=== PATIENT | female | born 1930 | race Caucasian/White ===

== ENCOUNTER 2016-06-30 12:04 | Emergency (ER) | payer MEDICARE, OTHER ==
[~2016-06-30] VITALS: Ht 167.6 cm; Wt 68.0 kg
[~2016-06-30 12:04] MED LIST: CALCIUM PO; CARV6.25 PO; FISH500C PO; FURO1TAB60 PO; HYDR12.57 PO; LOSA25TA PO; MAGN400T2 PO; METF1000 PO; MULT1TAB46 PO; PLAV75TA29 PO; WALKER WHEELS/F1 MIS; [UNRECOGNIZED DRUG - OTHER] PO
[2016-06-30 12:10] VITALS: BP 141/68; PULSE 94; RESP 15; TEMP 98.1; O2SAT 99
[2016-06-30] MEDS ORDERED: LIDOCAINE 1%/EPINEPHrine 1:100,000 SOLN 20 ML VIAL INFIL ONE (12:45)
[2016-06-30 12:48] VITALS: BP 147/76; PULSE 86; RESP 18; O2SAT 97
[2016-06-30] MEDS ORDERED: VITACAP9 PO (12:53)
[2016-06-30 13:08] LABS: AUTOMATED NEUTROPHIL # 5.3 TH/MM3 (1.8-7.7); BASOPHIL % 0.6 % (0.0-2.0); EOSINOPHIL # 0.1 TH/MM3 (0-0.4); EOSINOPHIL % 0.7 % (0.0-4.0); HEMATOCRIT 34.4 % (35.0-46.0); HEMO FLAGS DIFF FINAL; LYMPH % 18.7 % (9.0-44.0); LYMPHOCYTE # 1.4 TH/MM3 (1.0-4.8); MEAN CELL VOLUME 92.1 FL (80.0-100.0); MEAN CORPUSCULAR HEMOGLOBIN 30.1 PG (27.0-34.0); MEAN CORPUSCULAR HGB CONC 32.7 % (32.0-36.0); MONO % 8.5 % (0.0-8.0); NEUT % 71.5 % (16.0-70.0); PLATELET COUNT 187 TH/MM3 (150-450); RED BLOOD COUNT 3.74 MIL/MM3 (4.00-5.30); RED CELL DISTRIBUTION WIDTH 13.6 % (11.6-17.2); WHITE BLOOD COUNT 7.4 TH/MM3 (4.0-11.0)
[2016-06-30 13:15] LABS: APTT (PATIENT) 25.8 SEC (24.3-30.1); PROTHROMBIN TIME - PATIENT 10.6 SEC (9.8-11.6)
[2016-06-30 13:29] LABS: BICARBONATE 31.3 MEQ/L (21.0-32.0); POTASSIUM 3.5 MEQ/L (3.5-5.1)
--- NOTE | 2016-06-30 14:15 | PD ---
HPI Chief Complaint: Skin Problem Time Seen by Provider: 12:39 Travel History International Travel<30 days: No Contact w/Intl Traveler<30days: No Traveled to known affect area: No History of Present Illness HPI 85 years old female complains of bleeding from the right lower leg. Patient struck her right leg against a chair about 1 hour prior to arrival. Patient started having bleeding on the right leg since then. Patient has history of PAD , CHF, atrial fibrillation, on Plavix. Patient also has history of hypertension and diabetes. Patient denies any headache. Patient denies any chest pain or shortness of breath. Patient denies abdominal pain. Patient denies any other problem. PFSH Past Medical History Hx Anticoagulant Therapy: Yes (PLAVIX) Arthritis: Yes Asthma: No Heart Rhythm Problems: No Cancer: No Cardiovascular Problems: Yes High Cholesterol: Yes Chemotherapy: No Chest Pain: No Congestive Heart Failure: Yes COPD: Yes Cerebrovascular Accident: No Diabetes: Yes Patient Takes Glucophage: Yes Endocrine: Yes Genitourinary: No Hepatitis: No Hiatal Hernia: No Hypertension: Yes Immune Disorder: No Musculoskeletal: Yes Neurologic: No Psychiatric: No Reproductive: No Respiratory: Yes Migraines: Yes Radiation Therapy: No Seizures: No Sickle Cell Disease: No Sleep Apnea: No Thyroid Disease: Yes Tetanus Vaccination: > 5 Years Influenza Vaccination: No Past Surgical History Abdominal Surgery: No AICD: No Arteriovenous Shunt: No Cardiac Surgery: No Ear Surgery: No Endocrine Surgery: Yes Eye Surgery: No Genitourinary Surgery: No Gynecologic Surgery: Yes Hysterectomy: Yes Insulin Pump: No Joint Replacement: No Oral Surgery: No Pacemaker: No Thoracic Surgery: No Other Surgery: Yes Social History Alcohol Use: Yes (OCCASIONALLY ) Tobacco Use: No Substance Use: No Allergies-Medications (Allergen,Severity, Reaction): Coded Allergies: Contrast Media (Verified Allergy, Severe, ITCHING,REDNESS,SOB, 06/30/16) Iodinated Contrast Media (Verified Allergy, Severe, HIVES, 06/30/16) itching, sneezing Penicillin (Verified Allergy, Severe, SOB, RASH, 06/30/16) Sulfa (Verified Allergy, Severe, RASH, 06/30/16) Reported Meds & Prescriptions Reported Meds & Active Scripts Active Coreg (Carvedilol) 6.25 Mg Tab 6.25 Mg PO Q12HR Lasix (Furosemide) 40 Mg Tab 40 Mg PO BID@ Reported Vitamin B Complex-C (B Complex W/ C) 1 Cap Cap 1 Cap PO DAILY Magnesium Oxide 400 Mg Tab 400 Mg PO NOON TIME Multi Vitamin Daily (Multiple Vitamin) 1 Tab Tab 1 Tab PO DAILY Losartan (Losartan Potassium) 25 Mg Tab 25 Mg PO HS Fish Oil ([place]-3 Fatty Acids) 500 Mg Cap 500 Mg PO NOON TIME Metformin (Metformin HCl) 1,000 Mg Tab 1,000 Mg PO BIDPC With meals Plavix (Clopidogrel Bisulfate) 75 Mg Tab 75 Mg PO DAILY Review of Systems General / Constitutional: No: Fever Eyes: No: Visual changes HENT: No: Headaches Cardiovascular: No: Chest Pain or Discomfort Respiratory: No: Shortness of Breath Gastrointestinal: No: Abdominal Pain Genitourinary: No: Dysuria Musculoskeletal: No: Pain Skin: No Rash Neurologic: No: Weakness Psychiatric: No: Depression Endocrine: No: Polydipsia Hematologic/Lymphatic: No: Easy Bruising Physical Exam Narrative GENERAL: Well-nourished, well-developed patient. SKIN: Warm and dry. HEAD: Normocephalic. EYES: No scleral icterus. No injection or drainage. NECK: Supple, trachea midline. No JVD or lymphadenopathy. CARDIOVASCULAR: Regular rate and rhythm without murmurs, gallops, or rubs. RESPIRATORY: Breath sounds equal bilaterally. No accessory muscle use. GASTROINTESTINAL: Abdomen soft, non-tender, nondistended. MUSCULOSKELETAL: No cyanosis, or edema. BACK: Nontender without obvious deformity. No CVA tenderness. Patient has a large hematoma on the anterior lateral aspect of the right lower leg. Patient had active bleeding until the right leg was elevated and pressure was applied to the right leg. Data Data Last Documented VS Vital Signs Date Time Temp Pulse Resp B/P Pulse Ox O2 Delivery O2 Flow Rate FiO2 06/30/16 12:54 94 18 06/30/16 12:48 147/76 97 Room Air 06/30/16 12:10 98.1 Orders Lidocai-Epi 1%-1:100,000 Inj (Xylocaine- (06/30/16 12:45) Complete Blood Count With Diff (06/30/16 12:39) Basic Metabolic Panel (Bmp) (06/30/16 12:39) Prothrombin Time / Inr (Pt) (06/30/16 12:39) Act Partial Throm Time (Ptt) (06/30/16 12:39) Iv Access Insert/Monitor (06/30/16 12:39) Labs Laboratory Tests Test 06/30/16 12:40 White Blood Count 7.4 TH/MM3 Red Blood Count 3.74 MIL/MM3 Hemoglobin 11.3 GM/DL Hematocrit 34.4 % Mean Corpuscular Volume 92.1 FL Mean Corpuscular Hemoglobin 30.1 PG Mean Corpuscular Hemoglobin 32.7 % Concent Red Cell Distribution Width 13.6 % Platelet Count 187 TH/MM3 Mean Platelet Volume 8.9 FL Neutrophils (%) (Auto) 71.5 % Lymphocytes (%) (Auto) 18.7 % Monocytes (%) (Auto) 8.5 % Eosinophils (%) (Auto) 0.7 % Basophils (%) (Auto) 0.6 % Neutrophils # (Auto) 5.3 TH/MM3 Lymphocytes # (Auto) 1.4 TH/MM3 Monocytes # (Auto) 0.6 TH/MM3 Eosinophils # (Auto) 0.1 TH/MM3 Basophils # (Auto) 0.0 TH/MM3 CBC Comment DIFF FINAL Differential Comment Prothrombin Time 10.6 SEC Prothromb Time International 1.0 RATIO Ratio Activated Partial 25.8 SEC Thromboplast Time Sodium Level 136 MEQ/L Potassium Level 3.5 MEQ/L Chloride Level 98 MEQ/L Carbon Dioxide Level 31.3 MEQ/L Anion Gap 7 MEQ/L Blood Urea Nitrogen 10 MG/DL Creatinine 0.79 MG/DL Estimat Glomerular Filtration 69 ML/MIN Rate Random Glucose 185 MG/DL Calcium Level 8.8 MG/DL MDM Medical Decision Making Medical Screen Exam Complete: Yes Emergency Medical Condition: Yes Interpretation(s) 1406 p.m. CBC hemoglobin 11.3 hematocrit 34.4. BMP within normal limit. Differential Diagnosis Differential diagnosis including arterial versus venous bleeding, hematoma. Narrative Course 85 years old female with bleeding from right leg hematoma. Patient's on Plavix. Diagnosis Primary Impression: Hematoma Patient Instructions: General Instructions Additional Instructions: Continue with all medication. Frequent dressing changes daily the right leg. Follow-up with personal physician. Return if excessive bleeding. Med/Other Pt SpecificInfo: No Change to Meds Disposition: 01 DISCHARGE HOME Condition: Stable Yordan Cox MD Jun 30, 2016 14:15
[2016-06-30 15:40] VITALS: BP 130/72; TEMP 97.8
== END 2016-06-30 15:40 | disposition home or self-care (01) ==
LOC: NEPC 12:04
DX: S80.11XA Contusion of right lower leg, initial encounter (principal); S81.801A Unspecified open wound, right lower leg, initial encounter; E78.00 Pure hypercholesterolemia, unspecified; I50.9 Heart failure, unspecified; I10 Essential (primary) hypertension; J44.9 Chronic obstructive pulmonary disease, unspecified; Z79.4 Long term (current) use of insulin; Z79.01 Long term (current) use of anticoagulants; W22.8XXA Striking against or struck by other objects, initial encounter; Y93.9 Activity, unspecified; Y92.9 Unspecified place or not applicable; Y99.9 Unspecified external cause status
CPT/HCPCS: 80048; 85025; 85610; 85730; 99283

== ENCOUNTER 2016-07-07 11:46 | Emergency (ER) | payer OTHER ==
[~2016-07-07] VITALS: Ht 167.6 cm; Wt 70.0 kg
[~2016-07-07 11:46] MED LIST changes: -CALCIUM PO; -HYDR12.57 PO; +VITACAP9 PO; -WALKER WHEELS/F1 MIS; -[UNRECOGNIZED DRUG - OTHER] PO
[2016-07-07 12:12] VITALS: BP 139/76; PULSE 89; RESP 18; TEMP 98; O2SAT 96
[2016-07-07] MEDS ORDERED: metroNIDAZOLE 500 MG INJ 100 ML IV STA (13:09)
[2016-07-07] MEDS ORDERED: VANCOMYCIN INJ 1,000 MG in SODIUM CHLOR 0.9% 250 ML INJ 250 ML IV STA (13:09)
[2016-07-07] MEDS ORDERED: AZTREONAM INJ 2,000 MG in SODIUM CHLORIDE 0.9% INJ 100 ML IV STA (13:09)
--- NOTE | 2016-07-07 13:44 | PD ---
HPI Chief Complaint: Skin Problem Time Seen by Provider: 13:00 Travel History International Travel<30 days: No Contact w/Intl Traveler<30days: No Traveled to known affect area: No History of Present Illness HPI Patient is an 85-year-old female presenting to the emergency department for evaluation of a possible wound infection to the right lower leg. Patient fell approximately one week ago, she was seen and evaluated at [place], she was diagnosed with a hematoma to the right thurston she's had home health doing dressing changes. She presented to her primary doctor this morning who sent her into the emergency department due to the odor emanating from the hematoma. Patient has not taken anything for the pain, she reports the pain as a 7 out of 10 and describes as aching and sore. She denies any fever, chills, nausea, vomiting, numbness or tingling in her extremity. Patient reports a history of diabetes, congestive heart failure, atrial fibrillation, peripheral artery disease. PFSH Past Medical History Hx Anticoagulant Therapy: Yes Arthritis: Yes Asthma: No Heart Rhythm Problems: No Cancer: No Cardiovascular Problems: Yes (CHF AFIB ) High Cholesterol: Yes Chemotherapy: No Chest Pain: No Congestive Heart Failure: Yes COPD: Yes Cerebrovascular Accident: No Diabetes: Yes Patient Takes Glucophage: No Endocrine: Yes Genitourinary: No Hepatitis: No Hiatal Hernia: No Hypertension: Yes Immune Disorder: No Musculoskeletal: Yes Neurologic: No Psychiatric: No Reproductive: No Respiratory: Yes (COPD) Migraines: Yes Radiation Therapy: No Seizures: No Sickle Cell Disease: No Sleep Apnea: No Thyroid Disease: Yes Tetanus Vaccination: < 5 Years Influenza Vaccination: Yes Past Surgical History Abdominal Surgery: No AICD: No Arteriovenous Shunt: No Cardiac Surgery: No Ear Surgery: No Endocrine Surgery: Yes Eye Surgery: No Genitourinary Surgery: No Gynecologic Surgery: Yes Hysterectomy: Yes Insulin Pump: No Joint Replacement: No Oral Surgery: No Pacemaker: No Thoracic Surgery: No Other Surgery: Yes Social History Alcohol Use: Yes (OCCASIONALLY ) Tobacco Use: No Substance Use: No Allergies-Medications (Allergen,Severity, Reaction): Coded Allergies: Contrast Media (Verified Allergy, Severe, ITCHING,REDNESS,SOB, 06/30/16) Iodinated Contrast Media (Verified Allergy, Severe, HIVES, 06/30/16) itching, sneezing Penicillin (Verified Allergy, Severe, SOB, RASH, 06/30/16) Sulfa (Verified Allergy, Severe, RASH, 06/30/16) Reported Meds & Prescriptions Reported Meds & Active Scripts Active Coreg (Carvedilol) 6.25 Mg Tab 6.25 Mg PO Q12HR Lasix (Furosemide) 40 Mg Tab 40 Mg PO BID@ Reported Vitamin B Complex-C (B Complex W/ C) 1 Cap Cap 1 Cap PO DAILY Magnesium Oxide 400 Mg Tab 400 Mg PO NOON TIME Multi Vitamin Daily (Multiple Vitamin) 1 Tab Tab 1 Tab PO DAILY Losartan (Losartan Potassium) 25 Mg Tab 25 Mg PO HS Fish Oil ([place]-3 Fatty Acids) 500 Mg Cap 500 Mg PO NOON TIME Metformin (Metformin HCl) 1,000 Mg Tab 1,000 Mg PO BIDPC With meals Plavix (Clopidogrel Bisulfate) 75 Mg Tab 75 Mg PO DAILY Review of Systems Except as stated in HPI: all other systems reviewed are Neg General / Constitutional: No: Fever, Chills Cardiovascular: No: Chest Pain or Discomfort Respiratory: No: Shortness of Breath Gastrointestinal: No: Abdominal Pain Musculoskeletal: Positive: Edema, Pain Skin: Positive Change in Pigmentation, Positive Other (hematoma to right lower leg) Physical Exam Narrative GENERAL: Well-developed, well-nourished, alert elderly female. Resting comfortably in no acute distress. Son at bedside. SKIN: Warm and dry. 10 cm x 8 cm hematoma to the right thurston, erythema surrounding hematoma as well as the lateral aspect of the right lower leg. There is a 3 cm abrasion to the lateral aspect of the right leg. HEAD: Atraumatic. Normocephalic. EYES: Pupils equal and round. No scleral icterus. No injection or drainage. ENT: No nasal bleeding or discharge. Mucous membranes pink and moist. NECK: Trachea midline. No JVD. CARDIOVASCULAR: Irregularly irregular. No murmur appreciated. RESPIRATORY: No accessory muscle use. Clear to auscultation. Breath sounds equal bilaterally. GASTROINTESTINAL: Abdomen soft, non-tender, nondistended. Hepatic and splenic margins not palpable. MUSCULOSKELETAL: No obvious deformities. No clubbing. No cyanosis. Edema to the right lower leg. NEUROLOGICAL: Awake and alert. No obvious cranial nerve deficits. Motor grossly within normal limits. Normal speech. PSYCHIATRIC: Appropriate mood and affect; insight and judgment normal. Data Data Last Documented VS Vital Signs Date Time Temp Pulse Resp B/P Pulse Ox O2 Delivery O2 Flow Rate FiO2 07/07/16 12:12 98.0 89 18 139/76 96 Orders Complete Blood Count With Diff (07/07/16 13:09) Comprehensive Metabolic Panel (07/07/16 13:09) Prothrombin Time / Inr (Pt) (07/07/16 13:09) Act Partial Throm Time (Ptt) (07/07/16 13:09) Lactic Acid Sepsis Protocol (07/07/16 13:09) Magnesium (Mg) (07/07/16 13:09) Blood Culture (07/07/16 13:09) Wound Culture And Gram Stain (07/07/16 13:09) Aztreonam Inj (Azactam Inj) (07/07/16 13:09) Metronidazole 500 Mg Inj (Flagyl 500 Mg (07/07/16 13:09) Vancomycin Inj (Vancomycin Inj) (07/07/16 13:09) Iv Access Insert/Monitor (07/07/16 13:09) Clindamycin Inj (Cleocin Inj) (07/07/16 15:15) Labs Laboratory Tests Test 07/07/16 07/07/16 13:50 14:05 White Blood Count 7.5 TH/MM3 Red Blood Count 3.81 MIL/MM3 Hemoglobin 11.4 GM/DL Hematocrit 34.9 % Mean Corpuscular Volume 91.6 FL Mean Corpuscular Hemoglobin 29.9 PG Mean Corpuscular Hemoglobin 32.7 % Concent Red Cell Distribution Width 12.9 % Platelet Count 265 TH/MM3 Mean Platelet Volume 8.1 FL Neutrophils (%) (Auto) 59.7 % Lymphocytes (%) (Auto) 24.9 % Monocytes (%) (Auto) 11.6 % Eosinophils (%) (Auto) 0.9 % Basophils (%) (Auto) 2.9 % Neutrophils # (Auto) 4.4 TH/MM3 Lymphocytes # (Auto) 1.9 TH/MM3 Monocytes # (Auto) 0.9 TH/MM3 Eosinophils # (Auto) 0.1 TH/MM3 Basophils # (Auto) 0.2 TH/MM3 CBC Comment DIFF FINAL Differential Comment Prothrombin Time 10.7 SEC Prothromb Time International 1.0 RATIO Ratio Activated Partial 25.6 SEC Thromboplast Time Sodium Level 138 MEQ/L Potassium Level 3.4 MEQ/L Chloride Level 97 MEQ/L Carbon Dioxide Level 32.3 MEQ/L Anion Gap 9 MEQ/L Blood Urea Nitrogen 10 MG/DL Creatinine 0.85 MG/DL Estimat Glomerular Filtration 63 ML/MIN Rate Random Glucose 118 MG/DL Calcium Level 8.9 MG/DL Magnesium Level 1.7 MG/DL Total Bilirubin 0.6 MG/DL Aspartate Amino Transf 6 U/L (AST/SGOT) Alanine Aminotransferase 14 U/L (ALT/SGPT) Alkaline Phosphatase 63 U/L Total Protein 6.9 GM/DL Albumin 3.5 GM/DL Lactic Acid Level 1.1 mmol/L MDM Medical Decision Making Medical Screen Exam Complete: Yes Emergency Medical Condition: Yes Interpretation(s) Vital Signs Date Time Temp Pulse Resp B/P Pulse Ox O2 Delivery O2 Flow Rate FiO2 07/07/16 12:12 98.0 89 18 139/76 96 Differential Diagnosis Cellulitis versus abscess versus sepsis versus other Narrative Course Patient is a 85-year-old female presenting to the emergency Department for evaluation of a possible skin infection to her right lower leg. Patient stated hematoma to the right leg a week ago, she was evaluated in the emergency department after that happened. Since that time she's had home health doing dressing changes every other day. She presented to her primary provider's office and was advised to go to the emergency department for evaluation due to the odor emanating from the hematoma. Hematoma does have a fishy odor. Wound culture obtained, labs ordered and pending. IV access initiated. Patient is afebrile, her vital signs are stable. There is redness to the right lower leg extending from the hematoma laterally. CBC no elevated white count, mildly elevated basophils. Lactic acid is normal at 1.1 Chemistry with potassium of 3.4 otherwise unremarkable Coags are normal. Patient was also seen and evaluated by my attending physician. Antibiotics will be changed to clindamycin IV, she'll be given one dose in the emergency department and patient will be sent home with oral clindamycin. Patient is instructed to return to emergency department tomorrow for reevaluation. Patient verbalizes understanding of these instructions. Patient was encouraged return to emergency department sooner for any new or worsening symptoms however she was urged to return tomorrow for reevaluation. Physician Communication Physician Communication Dr. Castro also evaluated patient and agrees with treatment plan. Diagnosis Primary Impression: Cellulitis Qualified Code: L03.115 - Cellulitis of right lower extremity Additional Impression: Hematoma Referrals: Primary Care Physician 3 days Patient Instructions: Cellulitis (ED), General Instructions, Hematoma (ED) Additional Instructions: Keep extremity elevated Take antibiotics as directed Continue dressing changes with home health as scheduled Return to emergency department tomorrow for reevaluation Return to emergency department sooner for any new or worsening symptoms Med/Other Pt SpecificInfo: Prescription(s) given Scripts Saccharomyces Boulardii (Florastor)250 Mg [id number] Mg PO TIDAC 10 Days Ref 0 Prov:Angie Stovall 07/07/16 Clindamycin 150 Mg [id number] Mg PO Q8HR 10 Days Ref 0 Prov:Angie Stovall 07/07/16 Disposition: 01 DISCHARGE HOME Condition: Stable Angie Stovall Jul 07, 2016 13:44
[2016-07-07 13:56] LABS: AUTOMATED NEUTROPHIL # 4.4 TH/MM3 (1.8-7.7); BASOPHIL # 0.2 TH/MM3 (0-0.2); BASOPHIL % 2.9 % (0.0-2.0); EOSINOPHIL # 0.1 TH/MM3 (0-0.4); EOSINOPHIL % 0.9 % (0.0-4.0); HEMATOCRIT 34.9 % (35.0-46.0); HEMO FLAGS DIFF FINAL; LYMPH % 24.9 % (9.0-44.0); LYMPHOCYTE # 1.9 TH/MM3 (1.0-4.8); MEAN CELL VOLUME 91.6 FL (80.0-100.0); MEAN CORPUSCULAR HEMOGLOBIN 29.9 PG (27.0-34.0); MEAN CORPUSCULAR HGB CONC 32.7 % (32.0-36.0); MONO % 11.6 % (0.0-8.0); NEUT % 59.7 % (16.0-70.0); PLATELET COUNT 265 TH/MM3 (150-450); RED BLOOD COUNT 3.81 MIL/MM3 (4.00-5.30); RED CELL DISTRIBUTION WIDTH 12.9 % (11.6-17.2); WHITE BLOOD COUNT 7.5 TH/MM3 (4.0-11.0)
[2016-07-07 14:00] VITALS: BP 132/77; PULSE 74; RESP 18; O2SAT 98
[2016-07-07 14:13] LABS: CHLORIDE 97 MEQ/L (98-107); POTASSIUM 3.4 MEQ/L (3.5-5.1); SODIUM (NA) 138 MEQ/L (136-145)
[2016-07-07 14:16] LABS: APTT (PATIENT) 25.6 SEC (24.3-30.1); PROTHROMBIN TIME - PATIENT 10.7 SEC (9.8-11.6)
[2016-07-07 14:18] LABS: ANION GAP 9 MEQ/L (5-15); BICARBONATE 32.3 MEQ/L (21.0-32.0); BLOOD UREA NITROGEN 10 MG/DL (7-18); MAGNESIUM 1.7 MG/DL (1.5-2.5)
[2016-07-07 14:21] LABS: ALT (GPT) 14 U/L (10-53); AST (GOT) 6 U/L (15-37); GLOMERULAR FILTRATION RATE 63 ML/MIN (>89)
[2016-07-07 14:22] LABS: TOTAL BILIRUBIN ADULT 0.6 MG/DL (0.2-1.0)
[2016-07-07 14:24] LABS: ALKALINE PHOSPHATASE 63 U/L (45-117)
[2016-07-07] MEDS ORDERED: CLINDAMYCIN INJ 900 MG in SODIUM CHLORIDE 0.9% INJ 100 ML IV ONE (15:15)
[2016-07-07] MEDS ORDERED: CLIN1CAP5 PO (15:24)
[2016-07-07] MEDS ORDERED: FLOR250C PO (15:24)
[2016-07-07 16:00] VITALS: BP 132/72; PULSE 77; RESP 18; O2SAT 96
--- NOTE | 2016-07-11 09:45 | ED.CB ---
ED Call Back Communication Follow-up on wound culture results. In summary this is a patient who sustained a hematoma to the right lower leg on June 30. She was found to have cellulitis around the wound on July 07. At that point in time a surface swab of the hematoma was performed. She was placed on clindamycin. Wound recheck on July 08 the wound appeared to be improving. The results of the wound culture are now available. There is heavy growth of pseudomonas aeruginosa, staphylococcus aureus, group B beta strep. The Staphylococcus aureus is susceptible to clindamycin. Given the fact that this is an 85-year- old diabetic female, there is certainly concerned that additional antibiotic therapy to cover gram-negative pseudomonas would significantly increase the risk of C. difficile, especially since clindamycin is a high risk antibiotic for this disease. I called the patient on her home phone number at [phone] to check in on her. She reports that the wound appears to be doing better however she has not removed the bandages. There is been no additional redness or bruising or swelling. There is been no additional pain. She has had no fevers or chills. She has had no diarrhea or abdominal pain. She has a certified medical coding specialist coming to her house today to check on the wound. I did discuss the results of the wound culture with the patient and explained why I would prefer to avoid coverage of pseudomonas since the wound appears to be improving and would instead prefer that the patient follow up for wound recheck with her primary care physician Dr. Ferris who has all of the culture results sent to his office. Fortunately she does have an appointment with him in 3 days. I discussed signs and symptoms that would warrant return to the emergency room such as increasing redness, red streaks up the leg, fevers, worsening general malaise or fatigue, severe diarrhea or abdominal pain. She is agreeable with this plan of care. Discussed with Dr. Rivera who agrees as well. Dario Vazquez Jul 11, 2016 09:45
== END 2016-07-07 17:15 | disposition home or self-care (01) ==
LOC: PHEFT 11:46
DX: L03.115 Cellulitis of right lower limb (principal); B96.5 Pseudomonas (aeruginosa) (mallei) (pseudomallei) as the cause of diseases classified elsewhere; B95.61 Methicillin susceptible Staphylococcus aureus infection as the cause of diseases classified elsewhere; B95.1 Streptococcus, group B, as the cause of diseases classified elsewhere; I50.9 Heart failure, unspecified; I48.91 Unspecified atrial fibrillation; I10 Essential (primary) hypertension; I73.9 Peripheral vascular disease, unspecified; E11.9 Type 2 diabetes mellitus without complications; Z79.02 Long term (current) use of antithrombotics/antiplatelets; Z79.84 Long term (current) use of oral hypoglycemic drugs; Z79.899 Other long term (current) drug therapy
CPT/HCPCS: 80053; 83605; 83735; 85025; 85610; 85730; 86403; 87040; 87070; 87077; 87186; 87205; 96365; 96367

== ENCOUNTER 2016-07-08 11:20 | Emergency (ER) | payer OTHER ==
[~2016-07-08] VITALS: Ht 167.6 cm; Wt 73.0 kg
[~2016-07-08 11:20] MED LIST changes: +CLIN1CAP5 PO; +FLOR250C PO
[2016-07-08 11:52] VITALS: BP 142/80; PULSE 88; RESP 16; TEMP 98; O2SAT 98
--- NOTE | 2016-07-08 12:55 | PD ---
HPI Chief Complaint: Wound/Suture/Staple Re-Check Time Seen by Provider: 12:20 Travel History International Travel<30 days: No Contact w/Intl Traveler<30days: No Traveled to known affect area: No History of Present Illness HPI 85-year-old female coming in for recheck of cellulitis from hematoma secondary to contusion to area 8 days ago. Patient was seen yesterday and placed on Flagyl and clindamycin. Patient is here for recheck. Patient has had dark red blood oozing from the wound. She has no complaints of pain, fever, or other symptoms. PFSH Past Medical History Hx Anticoagulant Therapy: Yes Arthritis: Yes Asthma: No Heart Rhythm Problems: No Cancer: No Cardiovascular Problems: Yes (CHF AFIB ) High Cholesterol: Yes Chemotherapy: No Chest Pain: No Congestive Heart Failure: Yes COPD: Yes Cerebrovascular Accident: No Diabetes: Yes Patient Takes Glucophage: No Endocrine: Yes Genitourinary: No Hepatitis: No Hiatal Hernia: No Hypertension: Yes Immune Disorder: No Musculoskeletal: Yes Neurologic: No Psychiatric: No Reproductive: No Respiratory: Yes (COPD) Migraines: Yes Radiation Therapy: No Seizures: No Sickle Cell Disease: No Sleep Apnea: No Thyroid Disease: Yes Past Surgical History Abdominal Surgery: No AICD: No Arteriovenous Shunt: No Cardiac Surgery: No Ear Surgery: No Endocrine Surgery: Yes Eye Surgery: No Genitourinary Surgery: No Gynecologic Surgery: Yes Hysterectomy: Yes Insulin Pump: No Joint Replacement: No Oral Surgery: No Pacemaker: No Thoracic Surgery: No Other Surgery: Yes Social History Alcohol Use: Yes (OCCASIONALLY ) Tobacco Use: No Substance Use: No Allergies-Medications (Allergen,Severity, Reaction): Coded Allergies: Contrast Media (Verified Allergy, Severe, ITCHING,REDNESS,SOB, 07/08/16) Iodinated Contrast Media (Verified Allergy, Severe, HIVES, 07/08/16) itching, sneezing Penicillin (Verified Allergy, Severe, SOB, RASH, 07/08/16) Sulfa (Verified Allergy, Severe, RASH, 07/08/16) Reported Meds & Prescriptions Reported Meds & Active Scripts Active Florastor (Saccharomyces Boulardii) 250 Mg Cap 250 Mg PO TIDAC 10 Days Clindamycin (Clindamycin HCl) 150 Mg Cap 300 Mg PO Q8HR 10 Days Coreg (Carvedilol) 6.25 Mg Tab 6.25 Mg PO Q12HR Lasix (Furosemide) 40 Mg Tab 40 Mg PO BID@18 Reported Vitamin B Complex-C (B Complex W/ C) 1 Cap Cap 1 Cap PO DAILY Magnesium Oxide 400 Mg Tab 400 Mg PO NOON TIME Multi Vitamin Daily (Multiple Vitamin) 1 Tab Tab 1 Tab PO DAILY Losartan (Losartan Potassium) 25 Mg Tab 25 Mg PO HS Fish Oil ([place]-3 Fatty Acids) 500 Mg Cap 500 Mg PO NOON TIME Metformin (Metformin HCl) 1,000 Mg Tab 1,000 Mg PO BIDPC With meals Plavix (Clopidogrel Bisulfate) 75 Mg Tab 75 Mg PO DAILY Review of Systems General / Constitutional: No: Fever Eyes: No: Visual changes HENT: No: Headaches Cardiovascular: No: Chest Pain or Discomfort Respiratory: No: Shortness of Breath Gastrointestinal: No: Abdominal Pain Genitourinary: No: Dysuria Musculoskeletal: No: Pain Skin: Positive Lesions, No Rash Neurologic: No: Weakness Psychiatric: No: Depression Endocrine: No: Polydipsia Hematologic/Lymphatic: No: Easy Bruising Physical Exam Narrative GENERAL: Patient appears in no acute distress. SKIN: Warm and dry. Skin is very atrophic. Patient has an abrasion to the right middle lateral thurston with small amount of oozing bleeding. Patient has a large circular 5 inch diameter gelatinous hematoma to the right anterior medial thurston, with some minor dark venous bleeding, or clot drainage. There is no significant erythema around the area at this time. No lymphangitis. HEAD: Atraumatic. Normocephalic. EYES: Pupils equal and round. No scleral icterus. No injection or drainage. ENT: No nasal bleeding or discharge. Mucous membranes pink and moist. NECK: Trachea midline. No JVD. CARDIOVASCULAR: Regular rate and rhythm. RESPIRATORY: No accessory muscle use. Clear to auscultation. Breath sounds equal bilaterally. MUSCULOSKELETAL: Extremities without clubbing, cyanosis, or edema. No obvious deformities. NEUROLOGICAL: Awake and alert. No obvious cranial nerve deficits. Motor grossly within normal limits. Five out of 5 muscle strength in the arms and legs. Normal speech. PSYCHIATRIC: Appropriate mood and affect; insight and judgment normal. Data Data Last Documented VS Vital Signs Date Time Temp Pulse Resp B/P Pulse Ox O2 Delivery O2 Flow Rate FiO2 07/08/16 11:52 98.0 88 16 142/80 98 MDM Medical Decision Making Medical Screen Exam Complete: Yes Emergency Medical Condition: Yes Differential Diagnosis Large anterior thurston hematoma. Cellulitis. Need for wound debridement. Narrative Course Patient is medically stable at time of exam. Signs of infection appear much improved from yesterday. Large hematoma blood clot is debrided from the wound site with good granulating tissue beneath. Xeroform gauze and nonstick Telfa with bulky bandage placed. Further IV and Amoxil felt to be necessary at this time. Patient is to continue her oral antibiotics as previously prescribed. Patient is to leave the dressing in place until seen in the wound clinic. Referral to the wound clinic is made for further evaluation. Patient should follow-up with her primary care or return to emergency Department with worsening symptoms as needed. Procedures Procedure Narrative Right anterior thurston hematoma was debrided down to good granulating tissue without difficulty. No significant active bleeding is noted. The area was covered with 2 layers of Xeroform gauze, nonstick. Advance and bulky dressing. The dressing is to remain in place until patient is seen by the wound clinic. Patient is to continue her antibiotics as previously prescribed. Diagnosis Primary Impression: Cellulitis Qualified Code: L03.115 - Cellulitis of right lower extremity Additional Impression: Hematoma Referrals: [facility] call for appointment Patient Instructions: Cellulitis (ED), Chronic Wound Care (ED), General Instructions Additional Instructions: Signs of infection appear much improved from yesterday. Large hematoma blood clot is debrided from the wound site with good granulating tissue beneath. Xeroform gauze and nonstick Telfa with bulky bandage placed. Further IV and Amoxil felt to be necessary at this time. Patient is to continue her oral antibiotics as previously prescribed. Patient is to leave the dressing in place until seen in the wound clinic. Referral to the wound clinic is made for further evaluation. Patient should follow-up with her primary care or return to emergency Department with worsening symptoms as needed. Med/Other Pt SpecificInfo: No Change to Meds Disposition: 01 DISCHARGE HOME Condition: Stable Duane Thompson Jul 08, 2016 12:55
== END 2016-07-08 13:08 | disposition home or self-care (01) ==
LOC: PHEFT 11:20
DX: L03.115 Cellulitis of right lower limb (principal)
CPT/HCPCS: 99282

== ENCOUNTER 2016-07-14 12:11 | Inpatient (IN) | payer OTHER, MEDICARE ==
[~2016-07-14] VITALS: Ht 167.6 cm; Wt 71.0 kg
[2016-07-14] MEDS ORDERED: SODIUM CHLORIDE 0.9% FLUSH 5 ML FLUSH IVF PRN (12:30)
[2016-07-14] MEDS ORDERED: ASPIRIN 81 MG CHEW TAB CHEW ONE (12:30)
--- NOTE | 2016-07-14 12:34 | PD ---
HPI Chief Complaint: shortness of breath Time Seen by Provider: 12:25 Travel History International Travel<30 days: No Contact w/Intl Traveler<30days: No Traveled to known affect area: No History of Present Illness HPI The patient is a 85-year-old female who presents emergency department for shortness of breath. The patient states she suffered a hematoma to the right lower extremity several weeks ago and states it became secondarily infected. The patient was placed on clindamycin for a staph infection, and recently had Levaquin added for possible treatment failure. The patient states she took her first Levaquin pill this morning and then developed shortness of breath. The patient denied any lip swelling, difficulty swallowing, wheezing, nausea, vomiting, rash, or pruritus. The patient did know some chest "discomfort", over the anterior aspect of her chest with some heaviness associated with her shortness of breath. The patient denies any history of coronary artery disease, but was recently diagnosed with congestive heart failure April 2016. The patient was administered nitroglycerin sublingual by EMS prior to arrival and she states that her chest heaviness improved. The patient denies any new cough, significant edema to lower extremities, or significant dyspnea upon exertion. The patient's primary physician is Dr. Germna Ferris and her carbide operator is Dr. Ugalde. PFSH Past Medical History Hx Anticoagulant Therapy: Yes Arthritis: Yes Asthma: No Heart Rhythm Problems: No Cancer: No Cardiovascular Problems: Yes (CHF AFIB ) High Cholesterol: Yes Chemotherapy: No Chest Pain: No Congestive Heart Failure: Yes COPD: Yes Cerebrovascular Accident: No Diabetes: Yes Endocrine: Yes Genitourinary: No Hepatitis: No Hiatal Hernia: No Hypertension: Yes Immune Disorder: No Musculoskeletal: Yes Neurologic: No Psychiatric: No Reproductive: No Respiratory: Yes (COPD) Migraines: Yes Radiation Therapy: No Seizures: No Sickle Cell Disease: No Sleep Apnea: No Thyroid Disease: Yes Past Surgical History Abdominal Surgery: No AICD: No Arteriovenous Shunt: No Cardiac Surgery: No Ear Surgery: No Endocrine Surgery: Yes Eye Surgery: No Genitourinary Surgery: No Gynecologic Surgery: Yes Hysterectomy: Yes Insulin Pump: No Joint Replacement: No Oral Surgery: No Pacemaker: No Thoracic Surgery: No Other Surgery: Yes Social History Alcohol Use: Yes (OCCASIONALLY ) Tobacco Use: No Substance Use: No Allergies-Medications (Allergen,Severity, Reaction): Coded Allergies: Contrast Media (Verified Allergy, Severe, ITCHING,REDNESS,SOB, 07/08/16) Iodinated Contrast Media (Verified Allergy, Severe, HIVES, 07/08/16) itching, sneezing Penicillin (Verified Allergy, Severe, SOB, RASH, 07/08/16) Sulfa (Verified Allergy, Severe, RASH, 07/08/16) Reported Meds & Prescriptions Reported Meds & Active Scripts Active Florastor (Saccharomyces Boulardii) 250 Mg Cap 250 Mg PO TIDAC 10 Days Clindamycin (Clindamycin HCl) 150 Mg Cap 300 Mg PO Q8HR 10 Days Coreg (Carvedilol) 6.25 Mg Tab 6.25 Mg PO Q12HR Lasix (Furosemide) 40 Mg Tab 40 Mg PO BID@ Reported Vitamin B Complex-C (B Complex W/ C) 1 Cap Cap 1 Cap PO DAILY Magnesium Oxide 400 Mg Tab 400 Mg PO NOON TIME Multi Vitamin Daily (Multiple Vitamin) 1 Tab Tab 1 Tab PO DAILY Losartan (Losartan Potassium) 25 Mg Tab 25 Mg PO HS Fish Oil ([place]-3 Fatty Acids) 500 Mg Cap 500 Mg PO NOON TIME Metformin (Metformin HCl) 1,000 Mg Tab 1,000 Mg PO BIDPC With meals Plavix (Clopidogrel Bisulfate) 75 Mg Tab 75 Mg PO DAILY Review of Systems Except as stated in HPI: all other systems reviewed are Neg General / Constitutional: No: Fever Cardiovascular: Positive: Chest Pain or Discomfort, No: Diaphoresis, Dyspnea on exertion Respiratory: Positive: Shortness of Breath (discomfort/heaviness) Gastrointestinal: No: Nausea, Vomiting, Abdominal Pain Musculoskeletal: Positive: Other (hematoma in the anterior aspect the right lower extremity which she states that secondarily infected.) Skin: Positive Other (as noted in the history of present illness) Neurologic: No: Dizziness Physical Exam Narrative GENERAL: Awake, alert, pleasant 85-year-old female who appears her stated age and is in no acute respiratory distress. Patient is able to speak in full and complete sentences. SKIN: Warm and dry. HEAD: Atraumatic. Normocephalic. EYES: Pupils equal and round. No scleral icterus. No injection or drainage. ENT: No nasal bleeding or discharge. Mucous membranes pink and moist. NECK: Trachea midline. No JVD. CARDIOVASCULAR: Irregularly irregular with a heart rate in the 80s.. RESPIRATORY: No accessory muscle use. Few crackles in the right base. GASTROINTESTINAL: Abdomen soft, non-tender, nondistended. No rebound tenderness. MUSCULOSKELETAL: Circular area slightly to provided skin on the anterior aspect of the right tibia/fibula just inferior to the knee with dressing in place. When dressing is removed, there is a small amount of drainage on the dressing. NEUROLOGICAL: Awake and alert. No obvious cranial nerve deficits. Motor grossly within normal limits. Normal speech. PSYCHIATRIC: Appropriate mood and affect; insight and judgment normal. Data Data Last Documented VS Vital Signs Date Time Temp Pulse Resp B/P Pulse Ox O2 Delivery O2 Flow Rate FiO2 07/14/16 13:00 98.2 78 18 174/79 Orders Complete Blood Count With Diff (07/14/16 12:25) Comprehensive Metabolic Panel (07/14/16 12:25) B-Type Natriuretic Peptide (07/14/16 12:25) Act Partial Throm Time (Ptt) (07/14/16 12:25) Prothrombin Time / Inr (Pt) (07/14/16 12:25) Magnesium (Mg) (07/14/16 12:25) Ckmb (Isoenzyme) Profile (07/14/16 12:25) Troponin I (07/14/16 12:25) Iv Access Insert/Monitor (07/14/16 12:25) Electrocardiogram (07/14/16 12:25) Ecg Monitoring (07/14/16 12:25) Oximetry (07/14/16 12:25) Oxygen Administration (07/14/16 12:25) Chest, Single Ap (07/14/16 12:25) Sodium Chloride 0.9% Flush (Ns Flush) (07/14/16 12:30) Aspirin Chew (Aspirin Chew) (07/14/16 12:30) Albuterol-Ipratropium Neb (Duoneb Neb) (07/14/16 12:45) Cefepime Inj (Maxipime Inj) (07/14/16 12:45) Gentamicin 80 Mg Premix (Gentamicin 80 M (07/14/16 12:45) Methylprednisolone So Succ Inj (Solumedr (07/14/16 13:30) Diphenhydramine (Benadryl) (07/14/16 13:30) Ranitidine (Zantac) (07/14/16 13:30) Admit Order (Ed Use Only) (07/14/16 13:58) Labs Laboratory Tests Test 07/14/16 12:38 White Blood Count 7.3 TH/MM3 Red Blood Count 3.57 MIL/MM3 Hemoglobin 11.0 GM/DL Hematocrit 32.2 % Mean Corpuscular Volume 90.0 FL Mean Corpuscular Hemoglobin 30.7 PG Mean Corpuscular Hemoglobin 34.1 % Concent Red Cell Distribution Width 13.4 % Platelet Count 248 TH/MM3 Mean Platelet Volume 8.1 FL Neutrophils (%) (Auto) 66.1 % Lymphocytes (%) (Auto) 21.6 % Monocytes (%) (Auto) 10.4 % Eosinophils (%) (Auto) 1.2 % Basophils (%) (Auto) 0.7 % Neutrophils # (Auto) 4.9 TH/MM3 Lymphocytes # (Auto) 1.6 TH/MM3 Monocytes # (Auto) 0.8 TH/MM3 Eosinophils # (Auto) 0.1 TH/MM3 Basophils # (Auto) 0.1 TH/MM3 CBC Comment DIFF FINAL Differential Comment Prothrombin Time 10.8 SEC Prothromb Time International 1.0 RATIO Ratio Activated Partial 25.4 SEC Thromboplast Time Sodium Level 136 MEQ/L Potassium Level 3.4 MEQ/L Chloride Level 96 MEQ/L Carbon Dioxide Level 29.4 MEQ/L Anion Gap 11 MEQ/L Blood Urea Nitrogen 7 MG/DL Creatinine 0.68 MG/DL Estimat Glomerular Filtration 82 ML/MIN Rate Random Glucose 119 MG/DL Calcium Level 8.6 MG/DL Magnesium Level 1.6 MG/DL Total Bilirubin 0.5 MG/DL Aspartate Amino Transf 10 U/L (AST/SGOT) Alanine Aminotransferase 11 U/L (ALT/SGPT) Alkaline Phosphatase 53 U/L Total Creatine Kinase 38 U/L Troponin I LESS THAN 0.02 NG/ML B-Type Natriuretic Peptide 283 PG/ML Total Protein 6.6 GM/DL Albumin 3.1 GM/DL [facility] Medical Decision Making Medical Screen Exam Complete: Yes Emergency Medical Condition: Yes Medical Record Reviewed: Yes Interpretation(s) EKG reveals atrial fibrillation with a heart rate of 88. No ischemic changes noted. Chest x-ray reveals crit megaly with mild congestive failure. Minimal parenchymal place. Laboratory Tests Test 07/14/16 12:38 White Blood Count 7.3 TH/MM3 Red Blood Count 3.57 MIL/MM3 Hemoglobin 11.0 GM/DL Hematocrit 32.2 % Mean Corpuscular Volume 90.0 FL Mean Corpuscular Hemoglobin 30.7 PG Mean Corpuscular Hemoglobin 34.1 % Concent Red Cell Distribution Width 13.4 % Platelet Count 248 TH/MM3 Mean Platelet Volume 8.1 FL Neutrophils (%) (Auto) 66.1 % Lymphocytes (%) (Auto) 21.6 % Monocytes (%) (Auto) 10.4 % Eosinophils (%) (Auto) 1.2 % Basophils (%) (Auto) 0.7 % Neutrophils # (Auto) 4.9 TH/MM3 Lymphocytes # (Auto) 1.6 TH/MM3 Monocytes # (Auto) 0.8 TH/MM3 Eosinophils # (Auto) 0.1 TH/MM3 Basophils # (Auto) 0.1 TH/MM3 CBC Comment DIFF FINAL Differential Comment Prothrombin Time 10.8 SEC Prothromb Time International 1.0 RATIO Ratio Activated Partial 25.4 SEC Thromboplast Time Sodium Level 136 MEQ/L Potassium Level 3.4 MEQ/L Chloride Level 96 MEQ/L Carbon Dioxide Level 29.4 MEQ/L Anion Gap 11 MEQ/L Blood Urea Nitrogen 7 MG/DL Creatinine 0.68 MG/DL Estimat Glomerular Filtration 82 ML/MIN Rate Random Glucose 119 MG/DL Calcium Level 8.6 MG/DL Magnesium Level 1.6 MG/DL Total Bilirubin 0.5 MG/DL Aspartate Amino Transf 10 U/L (AST/SGOT) Alanine Aminotransferase 11 U/L (ALT/SGPT) Alkaline Phosphatase 53 U/L Total Creatine Kinase 38 U/L Troponin I LESS THAN 0.02 NG/ML B-Type Natriuretic Peptide 283 PG/ML Total Protein 6.6 GM/DL Albumin 3.1 GM/DL Differential Diagnosis Differential diagnosis includes CHF, COPD, bronchitis, pulmonary embolism, acute coronary syndrome, anaphylaxis, allergic reaction, pleural effusion. Narrative Course IV was established, labs are drawn and sent, and the patient was placed on cardiac telemetry monitoring and continuous pulse oximetry monitoring. EKG was ordered and interpreted. Chest x-ray was ordered. The patient was administered aspirin 162 mg orally and duo neb times one. The patient was administered Solu-Medrol and Benadryl. BMP was sent to lab. I reviewed the patient's culture results from her leg wound, she had Pseudomonas and staph aureus growing from her culture. The patient was RE on clindamycin and subsequently had the Levaquin added, however, the patient states she had a reaction to Levaquin this morning. There are no other oral antibiotics for her Pseudomonas, therefore, the patient was administered gentamicin 80 mg intravenously. The patient notes a history of penicillin allergy with hives, shortness of breath requiring hospitalization in the past. Therefore, cephalosporin was not administered. BNP is elevated at 283, chest reveals mild interstitial edema. The patient may have atypical allergic reaction, however, does have right lower extremity infection that is down outpatient therapy, she has to infections, one staph aureus and one Pseudomonas. However, Levaquin is the only medicine she can take orally and she appears to have had an allergic reaction per her report. Therefore, patient will be admitted for IV antibiotics. Patient sees Dr. German Ferris and has [employer], therefore, [facility]. Physician Communication Physician Communication The patient has [employer], therefore, [facility] were paged for admission. I discussed the patient with Dr. Dean who agrees with admission. Diagnosis Primary Impression: Cellulitis of right lower extremity Additional Impressions: Allergic reaction Qualified Code: T78.40XA - Allergic reaction, initial encounter Dyspnea Qualified Code: R06.00 - Dyspnea, unspecified type Admitting Information Admitting Physician Requests: Admit Condition: Stable Lázaro Stevenson MD Jul 14, 2016 12:34 Lázaro Stevenson MD Jul 14, 2016 12:34
[2016-07-14] MEDS ORDERED: GENTAMICIN 80 MG PREMIX 100 ML IV ONE (12:45)
[2016-07-14] MEDS ORDERED: RESP: ALBUTEROL 2.5 MG/IPRATROPIUM 0.5 MG NEB (SCH) NEB ONE (12:45)
[2016-07-14] MEDS ORDERED: CEFEPIME INJ 1,000 MG in SODIUM CHLORIDE 0.9% INJ 100 ML IV ONE (12:45)
[2016-07-14 12:54] LABS: AUTOMATED NEUTROPHIL # 4.9 TH/MM3 (1.8-7.7); BASOPHIL # 0.1 TH/MM3 (0-0.2); BASOPHIL % 0.7 % (0.0-2.0); EOSINOPHIL # 0.1 TH/MM3 (0-0.4); EOSINOPHIL % 1.2 % (0.0-4.0); HEMATOCRIT 32.2 % (35.0-46.0); HEMO FLAGS DIFF FINAL; LYMPH % 21.6 % (9.0-44.0); LYMPHOCYTE # 1.6 TH/MM3 (1.0-4.8); MEAN CORPUSCULAR HEMOGLOBIN 30.7 PG (27.0-34.0); MEAN CORPUSCULAR HGB CONC 34.1 % (32.0-36.0); MONO % 10.4 % (0.0-8.0); NEUT % 66.1 % (16.0-70.0); PLATELET COUNT 248 TH/MM3 (150-450); RED BLOOD COUNT 3.57 MIL/MM3 (4.00-5.30); RED CELL DISTRIBUTION WIDTH 13.4 % (11.6-17.2); WHITE BLOOD COUNT 7.3 TH/MM3 (4.0-11.0)
[2016-07-14 13:00] VITALS: BP 174/79; PULSE 78; RESP 18; TEMP 98.2
[2016-07-14 13:00] LABS: APTT (PATIENT) 25.4 SEC (24.3-30.1); PROTHROMBIN TIME - PATIENT 10.8 SEC (9.8-11.6)
[2016-07-14 13:08] LABS: ALT (GPT) 11 U/L (10-53); ANION GAP 11 MEQ/L (5-15); AST (GOT) 10 U/L (15-37); BICARBONATE 29.4 MEQ/L (21.0-32.0); BLOOD UREA NITROGEN 7 MG/DL (7-18); CHLORIDE 96 MEQ/L (98-107); GLOMERULAR FILTRATION RATE 82 ML/MIN (>89); MAGNESIUM 1.6 MG/DL (1.5-2.5); POTASSIUM 3.4 MEQ/L (3.5-5.1); SODIUM (NA) 136 MEQ/L (136-145)
[2016-07-14 13:12] LABS: ALKALINE PHOSPHATASE 53 U/L (45-117); TOTAL BILIRUBIN ADULT 0.5 MG/DL (0.2-1.0)
[2016-07-14 13:14] LABS: CREATINE KINASE 38 U/L (26-192)
--- NOTE | 2016-07-14 13:18 | RADRPT ---
EXAM DATE/TIME: 07/14/2016 12:35 [facility] COMPARISON: CHEST SINGLE AP, May 04, 2016, 8:22. INDICATIONS : Patient has been short of breath since this morning. MEDICAL HISTORY : Congestive heart failure. SURGICAL HISTORY : None. ENCOUNTER: Initial ACUITY: 1 day PAIN SCORE: 0/10 LOCATION: chest FINDINGS: Heart is enlarged. Mild interstitial prominence is present. Minimal parenchymal changes are seen le ft base.. CONCLUSION: 1. Cardiomegaly with mild congestive failure. 2. Minimal parenchymal opacity. Frantz Benavidez MD FACR on July 14, 2016 at 13:11 Board Certified Radiologist. This report was verified electronically.
[2016-07-14] MEDS ORDERED: RANITIDINE HCL 150 MG TAB PO ONE (13:30)
[2016-07-14] MEDS ORDERED: methylPREDNISolone SOD SUCC 125 MG/2 ML VIAL IV PUSH ONE (13:30)
[2016-07-14] MEDS ORDERED: diphenhydrAMINE HCL 25 MG CAP PO ONE (13:30)
[2016-07-14 14:14] VITALS: BP 191/96; PULSE 86; RESP 20; O2SAT 97
[2016-07-14] MEDS ORDERED: GLUCAGON 1 MG/ML VIAL OTHER PRN (14:15)
[2016-07-14] MEDS ORDERED: DEXTROSE 50% IN WATER 50 ML VIAL(D50) IV PUSH PRN (14:15)
--- NOTE | 2016-07-14 14:21 | HHI.HP ---
[facility] German Ferris MD Admission Diagnosis cellulitis failed outpatient therapy, allergic reaction, dyspnea Diagnoses: (1) Cellulitis of right lower extremity Diagnosis: Principal (2) Allergic reaction Diagnosis: Principal Chief Complaint: ' I wasn't feelin well after I took the antibiotic this morning'. Travel History International Travel<30 Days: No Contact w/Intl Traveler <30 Da: No Traveled to Known Affected Are: No History of Present Illness patient is a 85 y/o female who had a fall recently and developed a hematoma and cellulitis of the right leg. she was seen in ER earlier this week and was prescribed Clindamycin. at the time wound culture was obtained which came back positive for pseudomonas,staph and strep. she says that she was seen by her PCP the other day and was prescribed Levaquin. she took the first dose today and half an hour later she developed sob, dizziness and headache. she thinks that she had a reaction to levaquin. at the time of my evaluation she was resting more comfortably with no distress. she denies rash, nausea or vomiting. Review of Systems Constitutional: COMPLAINS OF: Dizziness, DENIES: Fever, Weight loss, Chills, Night Sweats Eyes: DENIES: Blurred vision, Diplopia, Vision loss, Double Vision Ears, nose, mouth, throat: DENIES: Tinnitus, Vertigo, Throat pain, Epistaxis Respiratory: DENIES: Apneas, Cough, Snoring, Wheezing, Hemoptysis, Sputum production, Shortness of breath Cardiovascular: DENIES: Chest pain, Palpitations, Syncope, Dyspnea on Exertion , PND, Lower Extremity Edema, Orthopnea, Claudication Gastrointestinal: DENIES: Abdominal pain, Black stools, Bloody stools, Constipation, Diarrhea, Nausea, Vomiting, Difficulty Swallowing, Anorexia Genitourinary: DENIES: Urinary frequency, Urgency, Hematuria, Dysuria Musculoskeletal: DENIES: Joint pain, Muscle aches, Stiffness, Joint Swelling Integumentary: COMPLAINS OF: Abnormal pigmentation, DENIES: Rash Neurologic: COMPLAINS OF: Headache, DENIES: Abnormal gait, Localized weakness , Paresthesias, Seizures, Speech Problems, Tremor, Poor Balance Psychiatric: DENIES: Anxiety, Confusion, Mood changes, Depression, Hallucinations, Agitation, Suicidal Ideation, Homicidal Ideation, Delusions Past Family Social History Past Medical History Congestive heart failure Hypertension Diabetes type 2 Questionable history of atrial fibrillation Past Surgical History Past Surgical History Balloon angioplasty of the left lower extremity for peripheral vascular disease in 2009 then again [place] [address] Borrego Hysterectomy Thyroidectomy Tonsillectomy Reported Medications Florastor (Saccharomyces Boulardii) 250 Mg Cap 250 Mg PO TIDAC 10 Days Clindamycin (Clindamycin HCl) 150 Mg Cap 300 Mg PO Q8HR 10 Days Coreg (Carvedilol) 6.25 Mg Tab 6.25 Mg PO Q12HR Lasix (Furosemide) 40 Mg Tab 40 Mg PO BID@ Reported Vitamin B Complex-C (B Complex W/ C) 1 Cap Cap 1 Cap PO DAILY Magnesium Oxide 400 Mg Tab 400 Mg PO NOON TIME Multi Vitamin Daily (Multiple Vitamin) 1 Tab Tab 1 Tab PO DAILY Losartan (Losartan Potassium) 25 Mg Tab 25 Mg PO HS Fish Oil ([place]-3 Fatty Acids) 500 Mg Cap 500 Mg PO NOON TIME Metformin (Metformin HCl) 1,000 Mg Tab 1,000 Mg PO BIDPC With meals Plavix (Clopidogrel Bisulfate) 75 Mg Tab 75 Mg PO DAILY Allergies: Coded Allergies: Contrast Media (Verified Allergy, Severe, ITCHING,REDNESS,SOB, 07/14/16) Iodinated Contrast Media (Verified Allergy, Severe, HIVES, 07/14/16) itching, sneezing Penicillin (Verified Allergy, Severe, SOB, RASH, 07/14/16) Sulfa (Verified Allergy, Severe, RASH, 07/14/16) Active Ordered Medications Current Medications IV Flush (NS Flush) 2 ml UNSCH PRN IVF FLUSH AFTER USING IV ACCESS; Start at 12:30 Aspirin (Aspirin Chew) 162 mg ONCE ONCE CHEW Last administered on 07/14/16 13: 03; Start 07/14/16 at 12:30; Stop 07/14/16 at 12:35; Status DC Albuterol/ Ipratropium 1 ampule 1 ampule ONCE ONCE NEB Last administered on 12:51; Start 07/14/16 at 12:45; Stop 07/14/16 at 12:46; Status DC Cefepime HCl 1000 mg/Sodium Chloride 100 ml @ 200 mls/hr ONCE ONCE IV ; Start 07/14/16 at 12:45; Stop 07/14/16 at 12:45; Status DC Gentamicin Sulfate/Sodium Chloride (Gentamicin 80 Mg Premix) 100 ml @ 200 mls/ hr ONCE ONCE IV ; Start 07/14/16 at 12:45; Stop 07/14/16 at 13:14; Status DC Methylprednisolone Sodium Succinate (SoluMEDROL INJ) 125 mg ONCE ONCE IV PUSH ; Start 07/14/16 at 13:30; Stop 07/14/16 at 13:31; Status DC Diphenhydramine HCl (Benadryl) 25 mg ONCE ONCE PO ; Start 07/14/16 at 13:30; Stop 07/14/16 at 13:31; Status DC Ranitidine HCl (Zantac) 150 mg ONCE ONCE PO ; Start 07/14/16 at 13:30; Stop 07/14 at 13:31; Status DC Family History not relevant to this admission. Social History drinks occasionally- doesn't smoke. Physical Exam Vital Signs Vital Signs Date Time Temp Pulse Resp B/P Pulse Ox O2 Delivery O2 Flow Rate FiO2 07/14/16 13:00 98.2 78 18 174/79 Physical Exam GENERAL: This is a well-nourished, well-developed patient, in no apparent distress. SKIN: open wound noted on the right [place]. HEAD: Atraumatic. Normocephalic. No temporal or scalp tenderness. EYES: Pupils equal round and reactive. Extraocular motions intact. No scleral icterus. No injection or drainage. ENT: Nose without bleeding, purulent drainage or septal hematoma. Throat without erythema, tonsillar hypertrophy or exudate. Uvula midline. Airway patent. NECK: Trachea midline. No JVD or lymphadenopathy. Supple, nontender, no meningeal signs. CARDIOVASCULAR: Regular rate and rhythm without murmurs, gallops, or rubs. RESPIRATORY: Clear to auscultation. Breath sounds equal bilaterally. No wheezes , rales, or rhonchi. GASTROINTESTINAL: Abdomen soft, non-tender, nondistended. No hepato-splenomegaly , or palpable masses. No guarding. MUSCULOSKELETAL: Extremities without clubbing, cyanosis, or edema. No joint tenderness, effusion, or edema noted. No calf tenderness. Negative Homans sign bilaterally. NEUROLOGICAL: Awake and alert. Cranial nerves II through XII intact. Motor and sensory grossly within normal limits. Five out of 5 muscle strength in all muscle groups. Normal speech. Laboratory Laboratory Tests Test 07/14/16 12:38 White Blood Count 7.3 Red Blood Count 3.57 Hemoglobin 11.0 Hematocrit 32.2 Mean Corpuscular Volume 90.0 Mean Corpuscular Hemoglobin 30.7 Mean Corpuscular Hemoglobin 34.1 Concent Red Cell Distribution Width 13.4 Platelet Count 248 Mean Platelet Volume 8.1 Neutrophils (%) (Auto) 66.1 Lymphocytes (%) (Auto) 21.6 Monocytes (%) (Auto) 10.4 Eosinophils (%) (Auto) 1.2 Basophils (%) (Auto) 0.7 Neutrophils # (Auto) 4.9 Lymphocytes # (Auto) 1.6 Monocytes # (Auto) 0.8 Eosinophils # (Auto) 0.1 Basophils # (Auto) 0.1 CBC Comment DIFF FINAL Differential Comment Prothrombin Time 10.8 Prothromb Time International 1.0 Ratio Activated Partial 25.4 Thromboplast Time Sodium Level 136 Potassium Level 3.4 Chloride Level 96 Carbon Dioxide Level 29.4 Anion Gap 11 Blood Urea Nitrogen 7 Creatinine 0.68 Estimat Glomerular Filtration 82 Rate Random Glucose 119 Calcium Level 8.6 Magnesium Level 1.6 Total Bilirubin 0.5 Aspartate Amino Transf 10 (AST/SGOT) Alanine Aminotransferase 11 (ALT/SGPT) Alkaline Phosphatase 53 Total Creatine Kinase 38 Troponin I LESS THAN 0.02 B-Type Natriuretic Peptide 283 Total Protein 6.6 Albumin 3.1 Result Diagram: 07/14/16 1238 07/14/16 1238 Assessment and Plan Assessment and Plan A/P -possible drug allergic reaction ( patient developed sob,dizziness and headache after she took a dose of Levauin)- now the symptoms have almost resolved. continue with Ranitidine and as needed neb treatment - open wound on the right leg- would culture with pseudomonas/ staph/ strep will consult wound care- consult ID due to multiple gloria-allergies -diabetes mellitus; accu-check with SSI -hypertension/ CHF; resume home meds/ hold Plavix for now Discussed Condition With ER physician and the patient. Physician Certification 2 Midnight Certification Type: Admission for Inpatient Services Order for Inpatient Services The services are ordered in accordance with Medicare regulations or non- Medicare payer requirements, as applicable. In the case of services not specified as inpatient-only, they are appropriately provided as inpatient services in accordance with the 2-midnight benchmark. Estimated LOS (days): 2 days is the estimated time the patient will need to remain in the hospital, assuming treatment plan goals are met and no additional complications. Post-Hospital Plan: Not yet determined Problem Qualifiers (1) Allergic reaction: Qualified Code: T78.40XA - Allergic reaction, initial encounter Semaj Dean MD Jul 14, 2016 14:21
[2016-07-14] MEDS ORDERED: RESP: ALBUTEROL 2.5 MG/IPRATROPIUM 0.5 MG NEB (PRN) NEB (14:30)
[2016-07-14] MEDS ORDERED: ENALAPRILAT 1.25 MG/ML VIAL IV PUSH PRN (14:30)
[2016-07-14] MEDS ORDERED: POTASSIUM CHLORIDE 20 MEQ CONTROLLED RELEASE TAB PO ONE (14:30)
[2016-07-14] MEDS ORDERED: FAMOTIDINE 20 MG TAB PO ONE (15:00)
--- NOTE | 2016-07-14 15:40 | PD.CONS ---
History of Present Illness Service Infectious disease Consult Requested By Dr Dean Reason for Consult Evaluate patient with right leg wound positive culture Primary Care Physician German Ferris MD Diagnoses: History of Present Illness Patient seen and examined. Records reviewed. Patient is an 85-year-old female presented to the hospital complaining of shortness of breath after she took her first dose of Levaquin. She thought that maybe she was getting an allergic reaction. Her history started around June 30 when she hit her right leg. She sustained some bleeding, and went to the emergency room. She was told to follow-up with her primary care physician. She was on Plavix. She will return to the emergency room on July 07, and felt that she was developing an infection in her right leg. She was given clindamycin, and culture was obtained from the wound. Culture came back growing Pseudomonas, MSSA, and group B strep. A she was called, and she followed up with her primary care physician who gave her Levaquin. She took one dose and developed shortness of breath and presented to the hospital for further evaluation and treatment. She had some home health nurses visiting her and a wound care nurse who had been giving her advice to do wound care on her right leg wound. She has not had any fever or chills or sweats. At the present time, she denies any shortness of breath. Patient stated that she had taken Cipro before without any significant problem. Infectious disease consultation is requested to evaluate the patient. Review of Systems Constitutional: DENIES: Fever, Chills, Night Sweats Eyes: DENIES: Eye pain Ears, nose, mouth, throat: DENIES: Nasal discharge, Oral lesions, Throat pain, Sinus Pain, Toothache Respiratory: COMPLAINS OF: Shortness of breath, DENIES: Cough, Sputum production Cardiovascular: DENIES: Chest pain, Palpitations, Syncope Gastrointestinal: DENIES: Abdominal pain, Diarrhea, Nausea Genitourinary: DENIES: Hematuria, Dysuria Musculoskeletal: DENIES: Muscle aches, Joint Swelling Integumentary: COMPLAINS OF: Rash Neurologic: DENIES: Headache Psychiatric: DENIES: Anxiety, Hallucinations Past Family Social History Allergies: Coded Allergies: Contrast Media (Verified Allergy, Severe, ITCHING,REDNESS,SOB, 07/14/16) Iodinated Contrast Media (Verified Allergy, Severe, HIVES, 07/14/16) itching, sneezing Penicillin (Verified Allergy, Severe, SOB, RASH, 07/14/16) Sulfa (Verified Allergy, Severe, RASH, 07/14/16) Past Medical History Congestive heart failure Hypertension Diabetes type 2 Questionable history of atrial fibrillation Peripheral Vascular disease Past Surgical History Balloon angioplasty of the left lower extremity for peripheral vascular disease in 2009 then again [place] [address] Borrego Hysterectomy Thyroidectomy Tonsillectomy Active Ordered Medications Albuterol Coreg Vasotec Pepcid Lasix Cozaar Patient got a dose of Benadryl, Zantac, Solu-Medrol and gentamicin in the emergency room Social History Lives at home, has roomate Denies smoking Occ ETOH No illicit drugs Physical Exam Vital Signs Vital Signs Date Time Temp Pulse Resp B/P Pulse Ox O2 Delivery O2 Flow Rate FiO2 07/14/16 14:14 97 Room Air 07/14/16 14:14 86 20 191/96 97 Room Air 07/14/16 14:14 86 20 191/96 97 Room Air 07/14/16 14:14 84 20 97 Room Air 07/14/16 13:00 98.2 78 18 174/79 Physical Exam GENERAL: This is a well-nourished, well-developed elderly female, awake and alert, in no apparent distress. SKIN: Cool and dry. Has purpuric dexter in her LE. No generalized rash HEAD: Atraumatic. Normocephalic. No temporal or scalp tenderness. EYES: [place] conjunctivae. Pupils equal round and reactive. Extraocular motions intact. No scleral icterus. No injection or drainage. ENT: Nose without bleeding, or purulent drainage. Moist oral mucosa. Throat without erythema, or exudate. NECK: Trachea midline. No JVD or lymphadenopathy. Supple, nontender, no meningeal signs. CARDIOVASCULAR: Regular rate and rhythm without murmurs, gallops, or rubs. Has occasional early beat. RESPIRATORY: Clear to auscultation. Breath sounds equal bilaterally. No wheezes , rales, or rhonchi. GASTROINTESTINAL: Abdomen soft, non-tender, nondistended. No hepato-splenomegaly , or palpable masses. No guarding. MUSCULOSKELETAL: Extremities without clubbing, cyanosis, or edema. No joint effusion, or edema noted. No calf tenderness. Negative Homans sign bilaterally. Has purpuric areas in her LLE. Has a large open wound on her upper anterior R leg, about 3 inches diameter, with red base, no puruelnce, and has mild redness aoround the wound especially inferiorly NEUROLOGICAL: Awake and alert. Cranial nerves II through XII intact. Motor and sensory grossly within normal limits. Five out of 5 muscle strength in all muscle groups. Normal speech. PSYCH: Non-focal LINE: PIV with no evidence of infection Laboratory Laboratory Tests Test 07/14/16 12:38 White Blood Count 7.3 Red Blood Count 3.57 Hemoglobin 11.0 Hematocrit 32.2 Mean Corpuscular Volume 90.0 Mean Corpuscular Hemoglobin 30.7 Mean Corpuscular Hemoglobin 34.1 Concent Red Cell Distribution Width 13.4 Platelet Count 248 Mean Platelet Volume 8.1 Neutrophils (%) (Auto) 66.1 Lymphocytes (%) (Auto) 21.6 Monocytes (%) (Auto) 10.4 Eosinophils (%) (Auto) 1.2 Basophils (%) (Auto) 0.7 Neutrophils # (Auto) 4.9 Lymphocytes # (Auto) 1.6 Monocytes # (Auto) 0.8 Eosinophils # (Auto) 0.1 Basophils # (Auto) 0.1 CBC Comment DIFF FINAL Differential Comment Prothrombin Time 10.8 Prothromb Time International 1.0 Ratio Activated Partial 25.4 Thromboplast Time Sodium Level 136 Potassium Level 3.4 Chloride Level 96 Carbon Dioxide Level 29.4 Anion Gap 11 Blood Urea Nitrogen 7 Creatinine 0.68 Estimat Glomerular Filtration 82 Rate Random Glucose 119 Calcium Level 8.6 Magnesium Level 1.6 Total Bilirubin 0.5 Aspartate Amino Transf 10 (AST/SGOT) Alanine Aminotransferase 11 (ALT/SGPT) Alkaline Phosphatase 53 Total Creatine Kinase 38 Troponin I LESS THAN 0.02 B-Type Natriuretic Peptide 283 Total Protein 6.6 Albumin 3.1 Result Diagram: 07/14/16 1238 07/14/16 1238 Imaging Chest X-Ray 07/14/16 1225 Signed Impressions: Service Date/Time: Thursday, July 14, 2016 12:35 - CONCLUSION: 1. Cardiomegaly with mild congestive failure. 2. Minimal parenchymal opacity. Frantz Benavidez MD FACR Assessment and Plan Assessment and Plan IMPRESSION Open wound L leg, C/S PSAE, MSSA and GBS, wound looks clean now and has mild cellulitis SOB, etiology? - patient has taken Cipro in the past without any problem - resolved Hx Heart disease, and PVD Allergy to PCN, hives and throat swelling RECOMMENDATION Cipro and Clinda Wound care If no further SOB and no reaction to Cipro, should be ok to D/C this weekend Needs HHC and wound care when she gets D/C since her wound is fairly big Santyl ointment to wound for wound care Thank you for this consultation Discussed Condition With Explained plan to the patient Mariely Fong MD Jul 14, 2016 15:40
[2016-07-14] MEDS: CIPROFLOXACIN 500 MG TAB PO SCH ×2 (17:03→21:54)
[2016-07-14] MEDS: CLINDAMYCIN 150 MG CAP PO SCH (17:04)
[2016-07-14] MEDS: COLLAGENASE OINT 30 GM TUBE TOP SCH (17:04)
[2016-07-14 18:04] VITALS: BP 190/93; PULSE 84; RESP 17; O2SAT 95
[2016-07-14] MEDS: FUROSEMIDE 40 MG TAB PO SCH (18:24)
[2016-07-14] MEDS: INSULIN ASPART SUPPLEMENTAL SCALE SQ SCH ×2 (18:24→21:00)
[2016-07-14 19:20] VITALS: BP 170/78; PULSE 85; RESP 16; O2SAT 100
[2016-07-14 21:45] VITALS: BP 145/88; PULSE 80; RESP 21; TEMP 97.9; O2SAT 94
[2016-07-14] MEDS: CARVEDILOL 6.25 MG TAB PO SCH (21:54)
[2016-07-14] MEDS: FAMOTIDINE 20 MG TAB PO SCH (21:54)
[2016-07-14] MEDS: LOSARTAN 25 MG TAB PO SCH (21:54)
[2016-07-15 00:15] VITALS: BP 145/85; PULSE 75; RESP 20; TEMP 98; O2SAT 94
[2016-07-15] MEDS: CLINDAMYCIN 150 MG CAP PO SCH ×3 (04:10→17:50)
[2016-07-15 05:00] VITALS: BP 138/80; PULSE 88; RESP 19; TEMP 98.1; O2SAT 95
[2016-07-15] MEDS ORDERED: CALCIUM CARBONATE 500 MG CHEWABLE TAB CHEW ONE (05:15)
[2016-07-15 08:00] VITALS: BP 171/75; PULSE 81; RESP 20; TEMP 96.7; O2SAT 97
[2016-07-15] MEDS: INSULIN ASPART SUPPLEMENTAL SCALE SQ SCH ×4 (08:24→22:51)
[2016-07-15] MEDS: COLLAGENASE OINT 30 GM TUBE TOP SCH (08:31)
[2016-07-15] MEDS: FAMOTIDINE 20 MG TAB PO SCH ×2 (08:31→22:39)
[2016-07-15] MEDS: FUROSEMIDE 40 MG TAB PO SCH ×2 (08:31→17:50)
[2016-07-15] MEDS: CIPROFLOXACIN 500 MG TAB PO SCH ×2 (08:31→22:26)
[2016-07-15] MEDS: CARVEDILOL 6.25 MG TAB PO SCH ×2 (08:31→22:27)
[2016-07-15 12:00] VITALS: BP 132/61; PULSE 75; RESP 20; TEMP 97.4; O2SAT 97
--- NOTE | 2016-07-15 12:40 | HHI.PR ---
Subjective Remarks in no acute distress. denies pain. afebrile. daughter at the bedside. Objective Vitals Vital Signs Date Time Temp Pulse Resp B/P Pulse Ox O2 Delivery O2 Flow Rate FiO2 07/15/16 08:00 96.7 81 20 171/75 97 07/15/16 05:00 98.1 88 19 138/80 95 07/15/16 00:15 98.0 75 20 145/85 94 07/14/16 21:45 97.9 80 21 145/88 94 07/14/16 19:20 85 16 170/78 100 Room Air 07/14/16 18:04 84 17 190/93 95 Room Air 07/14/16 14:14 97 Room Air 07/14/16 14:14 86 20 191/96 97 Room Air 07/14/16 14:14 86 20 191/96 97 Room Air 07/14/16 14:14 84 20 97 Room Air 07/14/16 13:00 98.2 78 18 174/79 I/O 07/14/16 07/14/16 07/14/16 07/15/16 07/15/16 07/15/16 07:00 15:00 23:00 07:00 15:00 23:00 Intake Total 1000 ml 900 ml 0 ml Balance 1000 ml 900 ml 0 ml Intake Oral 1000 ml 900 ml IV Total 0 ml # Voids 4 3 # Bowel Movements 0 0 Result Diagram: 07/14/16 1238 07/14/16 1238 Imaging Last Impressions Chest X-Ray 07/14/16 1225 Signed Impressions: Service Date/Time: Thursday, July 14, 2016 12:35 - CONCLUSION: 1. Cardiomegaly with mild congestive failure. 2. Minimal parenchymal opacity. Frantz Benavidez MD FACR Objective Remarks GENERAL: This is a well-nourished, well-developed patient, in no apparent distress. CARDIOVASCULAR: Regular rate and regular rhythm without murmurs, gallops, or rubs. RESPIRATORY: Clear to auscultation. Breath sounds equal bilaterally. No wheezes , rales, or rhonchi. GASTROINTESTINAL: Abdomen soft, non-tender, nondistended. Normal, active bowel sounds MUSCULOSKELETAL: Extremities without clubbing, cyanosis, or edema. NEURO: Alert & Oriented x4 to person, place, time, situation. Moves all ext x4 skin; right leg covered with clean dressing. Procedures none Medications and IVs Current Medications IV Flush (NS Flush) 2 ml UNSCH PRN IVF FLUSH AFTER USING IV ACCESS Last administered on 07/15/16 08:31; Start 07/14/16 at 12:30 Aspirin (Aspirin Chew) 162 mg ONCE ONCE CHEW Last administered on 07/14/16 13: 03; Start 07/14/16 at 12:30; Stop 07/14/16 at 12:35; Status DC Albuterol/ Ipratropium 1 ampule 1 ampule ONCE ONCE NEB Last administered on 12:51; Start 07/14/16 at 12:45; Stop 07/14/16 at 12:46; Status DC Cefepime HCl 1000 mg/Sodium Chloride 100 ml @ 200 mls/hr ONCE ONCE IV ; Start 07/14/16 at 12:45; Stop 07/14/16 at 12:45; Status DC Gentamicin Sulfate/Sodium Chloride (Gentamicin 80 Mg Premix) 100 ml @ 200 mls/ hr ONCE ONCE IV Last administered on 07/14/16 14:13; Start 07/14/16 at 12:45; Stop 07/14/16 at 13:14; Status DC Methylprednisolone Sodium Succinate (SoluMEDROL INJ) 125 mg ONCE ONCE IV PUSH Last administered on 07/14/16 15:05; Start 07/14/16 at 13:30; Stop 07/14/16 at 13: 31; Status DC Diphenhydramine HCl (Benadryl) 25 mg ONCE ONCE PO Last administered on 15:05; Start 07/14/16 at 13:30; Stop 07/14/16 at 13:31; Status DC Ranitidine HCl (Zantac) 150 mg ONCE ONCE PO ; Start 07/14/16 at 13:30; Stop 07/14 at 13:31; Status Cancel Dextrose (D50w (Vial) Inj) 25 ml UNSCH PRN IV PUSH HYPOGLYCEMIA-SEE COMMENTS; Start 07/14/16 at 14:15 Glucagon (Glucagon Inj) 1 mg UNSCH PRN OTHER HYPOGLYCEMIA-SEE COMMENTS; Start 07/14/16 at 14:15 Insulin Aspart (NovoLOG SUPPLEMENTAL SCALE) 1 ACHS SLIDING SCALE SQ Last administered on 07/15/16 11:00; Start 07/14/16 at 16:00 Carvedilol (Coreg) 6.25 mg Q12HR PO Last administered on 07/15/16 08:31; Start 07/14/16 at 21:00 Furosemide (Lasix) 40 mg BID@09,18 PO Last administered on 07/15/16 08:31; Start 07/14/16 at 18:00 Losartan Potassium (Cozaar) 25 mg HS PO Last administered on 07/14/16 21:54; Start 07/14/16 at 21:00 Famotidine (Pepcid) 20 mg ONCE ONCE PO Last administered on 07/14/16 15:05; Start 07/14/16 at 15:00; Stop 07/14/16 at 15:01; Status DC Albuterol/ Ipratropium (Duoneb Neb) 1 ampule Q6HR NEB PRN NEB SHORTNESS OF BREATH; Start 07/14/16 at 14:30 Famotidine (Pepcid) 20 mg BID PO Last administered on 07/15/16 08:31; Start 07/14/16 at 21:00 Potassium Chloride (KCl) 20 meq ONCE ONCE PO Last administered on 07/14/16 16: 18; Start 07/14/16 at 14:30; Stop 07/14/16 at 14:31; Status DC Enalaprilat (Vasotec Inj) 1.25 mg Q8H PRN IV PUSH SBP> OR = 180, DBP> OR = 100 Last administered on 07/14/16 18:24; Start 07/14/16 at 14:30 Collagenase (Santyl Oint) 1 applic DAILY TOP Last administered on 07/15/16 08: 31; Start 07/14/16 at 17:00 Ciprofloxacin (Cipro) 500 mg Q12HR PO Last administered on 07/15/16 08:31; Start 07/14/16 at 17:00; Stop 07/21/16 at 16:59 Clindamycin HCl (Cleocin) 300 mg Q8H PO Last administered on 07/15/16 08:31; Start 07/14/16 at 17:00; Stop 07/21/16 at 16:59 Calcium Carbonate (Tums Chew) 500 mg ONCE ONCE CHEW Last administered on 08:17; Start 07/15/16 at 05:15; Stop 07/15/16 at 05:16; Status DC A/P Assessment and Plan A/P -possible drug allergic reaction ( patient developed sob,dizziness and headache after she took a dose of Levauin)- now the symptoms have almost resolved. continue with Ranitidine and as needed neb treatment - open wound on the right leg-previous would culture with pseudomonas/ staph/ strep ID consult appreciated; started on Cipro and Clinda. wound care consulted. -diabetes mellitus; accu-check with SSI -hypertension/ CHF; resumed home meds/ hold Plavix for now -consult PT Discharge Planning case management consulted for dc planning to SNF. Smeaj Dean MD Jul 15, 2016 12:40
[2016-07-15 16:39] VITALS: BP 134/62; PULSE 79; RESP 20; TEMP 96.8; O2SAT 97
--- NOTE | 2016-07-15 19:24 | EKG ---
Date Performed: 07/14/2016 Time Performed: 12:35:29 PTAGE: 85 years EKG: ATRIAL FIBRILLATION NONSPECIFIC ST & T-WAVE ABNORMALITY Since previous tracing, no signific ant change noted ABNORMAL RHYTHM ECG PREVIOUS TRACING : 05/04/2016 07.42.01 DOCTOR: Dino Vaughn Interpretating Date/Time 07/15/2016 19:22:51
[2016-07-15 20:35] VITALS: BP 175/77; PULSE 83; RESP 16; TEMP 97.2; O2SAT 95
[2016-07-15] MEDS: LOSARTAN 25 MG TAB PO SCH ×2 (22:26→22:39)
[2016-07-16 00:17] VITALS: BP 157/81; PULSE 76; RESP 18; TEMP 97.5; O2SAT 94
[2016-07-16] MEDS: CLINDAMYCIN 150 MG CAP PO SCH ×3 (01:17→17:15)
[2016-07-16 04:18] VITALS: BP 158/70; PULSE 80; RESP 18; TEMP 97.7; O2SAT 92
[2016-07-16] MEDS: INSULIN ASPART SUPPLEMENTAL SCALE SQ SCH ×4 (07:00→21:46)
[2016-07-16 08:00] VITALS: BP 164/84; PULSE 87; RESP 18; TEMP 96.6; O2SAT 96
[2016-07-16] MEDS: COLLAGENASE OINT 30 GM TUBE TOP SCH (08:21)
[2016-07-16] MEDS: CIPROFLOXACIN 500 MG TAB PO SCH ×2 (08:21→21:45)
[2016-07-16] MEDS: FAMOTIDINE 20 MG TAB PO SCH ×2 (08:21→21:45)
[2016-07-16] MEDS: FUROSEMIDE 40 MG TAB PO SCH ×2 (08:21→17:15)
[2016-07-16] MEDS: CARVEDILOL 6.25 MG TAB PO SCH ×2 (08:21→21:45)
--- NOTE | 2016-07-16 11:06 | HHI.PR ---
Subjective Remarks resting comfortably with no distress. denies pain. d/w the RN and no acute issues over night. Objective Vitals Vital Signs Date Time Temp Pulse Resp B/P Pulse Ox O2 Delivery O2 Flow Rate FiO2 07/16/16 08:00 96.6 87 18 164/84 96 07/16/16 04:18 97.7 80 18 158/70 92 07/16/16 00:17 97.5 76 18 157/81 94 07/15/16 20:35 97.2 83 16 175/77 95 07/15/16 16:39 96.8 79 20 134/62 97 07/15/16 12:00 97.4 75 20 132/61 97 I/O 07/15/16 07/15/16 07/15/16 07/16/16 07/16/16 07/16/16 07:00 15:00 23:00 07:00 15:00 23:00 Intake Total 900 ml 420 ml Balance 900 ml 420 ml Intake Oral 900 ml 420 ml IV Total 0 ml # Voids 3 3 2 # Bowel Movements 0 1 Result Diagram: 07/14/16 1238 07/14/16 1238 Imaging Last Impressions Chest X-Ray 07/14/16 1225 Signed Impressions: Service Date/Time: Thursday, July 14, 2016 12:35 - CONCLUSION: 1. Cardiomegaly with mild congestive failure. 2. Minimal parenchymal opacity. Frantz Benavidez MD FACR Objective Remarks GENERAL: This is a well-nourished, well-developed patient, in no apparent distress. CARDIOVASCULAR: Regular rate and regular rhythm without murmurs, gallops, or rubs. RESPIRATORY: Clear to auscultation. Breath sounds equal bilaterally. No wheezes , rales, or rhonchi. GASTROINTESTINAL: Abdomen soft, non-tender, nondistended. Normal, active bowel sounds MUSCULOSKELETAL: Extremities without clubbing, cyanosis, or edema. NEURO: Alert & Oriented x4 to person, place, time, situation. Moves all ext x4 skin; right leg covered with clean dressing. Procedures none Medications and IVs Current Medications IV Flush (NS Flush) 2 ml UNSCH PRN IVF FLUSH AFTER USING IV ACCESS Last administered on 07/15/16t 08:31; Start 07/14/16 at 12:30 Aspirin (Aspirin Chew) 162 mg ONCE ONCE CHEW Last administered on 07/14/16 13: 03; Start 07/14/16 at 12:30; Stop 07/14/16 at 12:35; Status DC Albuterol/ Ipratropium 1 ampule 1 ampule ONCE ONCE NEB Last administered on 12:51; Start 07/14/16 at 12:45; Stop 07/14/16 at 12:46; Status DC Cefepime HCl 1000 mg/Sodium Chloride 100 ml @ 200 mls/hr ONCE ONCE IV ; Start 07/14/16 at 12:45; Stop 07/14/16 at 12:45; Status DC Gentamicin Sulfate/Sodium Chloride (Gentamicin 80 Mg Premix) 100 ml @ 200 mls/ hr ONCE ONCE IV Last administered on 07/14/16 14:13; Start 07/14/16 at 12:45; Stop 07/14/16 at 13:14; Status DC Methylprednisolone Sodium Succinate (SoluMEDROL INJ) 125 mg ONCE ONCE IV PUSH Last administered on 07/14/16 15:05; Start 07/14/16 at 13:30; Stop 07/14/16 at 13: 31; Status DC Diphenhydramine HCl (Benadryl) 25 mg ONCE ONCE PO Last administered on 15:05; Start 07/14/16 at 13:30; Stop 07/14/16 at 13:31; Status DC Ranitidine HCl (Zantac) 150 mg ONCE ONCE PO ; Start 07/14/16 at 13:30; Stop 07/14 at 13:31; Status Cancel Dextrose (D50w (Vial) Inj) 25 ml UNSCH PRN IV PUSH HYPOGLYCEMIA-SEE COMMENTS; Start 07/14/16 at 14:15 Glucagon (Glucagon Inj) 1 mg UNSCH PRN OTHER HYPOGLYCEMIA-SEE COMMENTS; Start 07/14/16 at 14:15 Insulin Aspart (NovoLOG SUPPLEMENTAL SCALE) 1 ACHS SLIDING SCALE SQ Last administered on 07/16/16 10:34; Start 07/14/16 at 16:00 Carvedilol (Coreg) 6.25 mg Q12HR PO Last administered on 07/16/16 08:21; Start 07/14/16 at 21:00 Furosemide (Lasix) 40 mg BID@09,18 PO Last administered on 07/16/16 08:21; Start 07/14/16 at 18:00 Losartan Potassium (Cozaar) 25 mg HS PO Last administered on 07/15/16 22:39; Start 07/14/16 at 21:00 Famotidine (Pepcid) 20 mg ONCE ONCE PO Last administered on 07/14/16 15:05; Start 07/14/16 at 15:00; Stop 07/14/16 at 15:01; Status DC Albuterol/ Ipratropium (Duoneb Neb) 1 ampule Q6HR NEB PRN NEB SHORTNESS OF BREATH; Start 07/14/16 at 14:30 Famotidine (Pepcid) 20 mg BID PO Last administered on 07/16/16 08:21; Start 07/14/16 at 21:00 Potassium Chloride (KCl) 20 meq ONCE ONCE PO Last administered on 07/14/16 16: 18; Start 07/14/16 at 14:30; Stop 07/14/16 at 14:31; Status DC Enalaprilat (Vasotec Inj) 1.25 mg Q8H PRN IV PUSH SBP> OR = 180, DBP> OR = 100 Last administered on 07/14/16 18:24; Start 07/14/16 at 14:30 Collagenase (Santyl Oint) 1 applic DAILY TOP Last administered on 07/16/16 08: 21; Start 07/14/16 at 17:00 Ciprofloxacin (Cipro) 500 mg Q12HR PO Last administered on 07/16/16 08:21; Start 07/14/16 at 17:00; Stop 07/21/16 at 16:59 Clindamycin HCl (Cleocin) 300 mg Q8H PO Last administered on 07/16/16 08:20; Start 07/14/16 at 17:00; Stop 07/21/16 at 16:59 Calcium Carbonate (Tums Chew) 500 mg ONCE ONCE CHEW Last administered on 08:17; Start 07/15/16 at 05:15; Stop 07/15/16 at 05:16; Status DC A/P Assessment and Plan A/P -possible drug allergic reaction ( patient developed sob,dizziness and headache after she took a dose of Levauin)- now the symptoms have resolved. continue with Ranitidine and as needed neb treatment - open wound on the right leg-previous would culture with pseudomonas/ staph/ strep ID consult appreciated; started on Cipro and Clinda. wound care consulted. -diabetes mellitus; accu-check with SSI -hypertension/ CHF/ PVD; resumed home meds -consulted PT Discharge Planning case management consulted for dc planning to SNF. Semaj Dean MD Jul 16, 2016 11:06
[2016-07-16] MEDS ORDERED: CIPR-9 PO (11:08)
[2016-07-16] MEDS ORDERED: CLIN150 PO (11:08)
[2016-07-16 12:00] VITALS: BP 125/55; PULSE 85; RESP 18; TEMP 96.8; O2SAT 97
[2016-07-16 16:00] VITALS: BP 154/74; PULSE 84; RESP 18; TEMP 98.4; O2SAT 97
[2016-07-16 20:00] VITALS: BP 157/91; PULSE 87; RESP 16; TEMP 97.3; O2SAT 96
[2016-07-16] MEDS: LOSARTAN 25 MG TAB PO SCH (21:45)
[2016-07-17] VITALS: BP 107/51; PULSE 80; RESP 20; TEMP 97.5; O2SAT 97
[2016-07-17] MEDS: CLINDAMYCIN 150 MG CAP PO SCH ×3 (01:00→15:57)
[2016-07-17 04:00] VITALS: BP 121/63; PULSE 79; RESP 20; TEMP 96.4; O2SAT 94
[2016-07-17] MEDS: INSULIN ASPART SUPPLEMENTAL SCALE SQ SCH ×4 (06:25→21:00)
[2016-07-17 08:00] VITALS: BP 131/77; PULSE 86; RESP 16; TEMP 97; O2SAT 94
[2016-07-17] MEDS: FAMOTIDINE 20 MG TAB PO SCH ×2 (09:21→21:39)
[2016-07-17] MEDS: CIPROFLOXACIN 500 MG TAB PO SCH ×2 (09:22→21:39)
[2016-07-17] MEDS: FUROSEMIDE 40 MG TAB PO SCH ×2 (09:22→16:56)
[2016-07-17] MEDS: CLOPIDOGREL 75 MG TAB PO SCH (09:22)
[2016-07-17] MEDS: CARVEDILOL 6.25 MG TAB PO SCH ×2 (09:22→21:39)
[2016-07-17] MEDS: COLLAGENASE OINT 30 GM TUBE TOP SCH (09:23)
--- NOTE | 2016-07-17 11:57 | HHI.DCPOC ---
Discharge Care Plan Diagnosis: (1) Cellulitis of right lower extremity Your Health Problems Are: Inflammation Goals to Promote Your Health * To prevent worsening of your condition and complications * To maintain your health at the optimal level Directions to Meet Your Goals Take your medications as prescribed Follow your dietary instruction Follow activity as directed Keep your appointments as scheduled Take your immunizations and boosters as scheduled If your symptoms worsen call your PCP, if no PCP go to Urgent Care Center or Emergency Room Smoking is Dangerous to Your Health. Avoid second hand smoke Call the 24-hour hour crisis hotline for domestic abuse at Semaj Dean MD Jul 17, 2016 11:57
--- NOTE | 2016-07-17 11:59 | HHI.PR ---
Subjective Remarks resting comfortably with no distress. no new complaints. Objective Vitals Vital Signs Date Time Temp Pulse Resp B/P Pulse Ox O2 Delivery O2 Flow Rate FiO2 07/17/16 08:00 97.0 86 16 131/77 94 07/17/16 04:00 96.4 79 20 121/63 94 07/17/16 00:00 97.5 80 20 107/51 97 07/16/16 20:00 97.3 87 16 157/91 96 07/16/16 16:00 98.4 84 18 154/74 97 07/16/16 12:00 96.8 85 18 125/55 97 I/O 07/16/16 07/16/16 07/16/16 07/17/16 07/17/16 07/17/16 07:00 15:00 23:00 07:00 15:00 23:00 Intake Total 450 ml 240 ml 60 ml Balance 450 ml 240 ml 60 ml Intake Oral 450 ml 240 ml 60 ml # Voids 2 3 2 1 # Bowel Movements 1 0 0 Result Diagram: 07/14/16 1238 07/14/16 1238 Imaging Last Impressions Chest X-Ray 07/14/16 1225 Signed Impressions: Service Date/Time: Thursday, July 14, 2016 12:35 - CONCLUSION: 1. Cardiomegaly with mild congestive failure. 2. Minimal parenchymal opacity. Frantz Benavidez MD FACR Objective Remarks GENERAL: This is a well-nourished, well-developed patient, in no apparent distress. CARDIOVASCULAR: Regular rate and regular rhythm without murmurs, gallops, or rubs. RESPIRATORY: Clear to auscultation. Breath sounds equal bilaterally. No wheezes , rales, or rhonchi. GASTROINTESTINAL: Abdomen soft, non-tender, nondistended. Normal, active bowel sounds MUSCULOSKELETAL: Extremities without clubbing, cyanosis, or edema. NEURO: Alert & Oriented x4 to person, place, time, situation. Moves all ext x4 skin; right leg covered with clean dressing. Procedures none Medications and IVs Current Medications IV Flush (NS Flush) 2 ml UNSCH PRN IVF FLUSH AFTER USING IV ACCESS Last administered on 07/15/16 08:31; Start 07/14/16 at 12:30 Aspirin (Aspirin Chew) 162 mg ONCE ONCE CHEW Last administered on 07/14/16 13: 03; Start 07/14/16 at 12:30; Stop 07/14/16 at 12:35; Status DC Albuterol/ Ipratropium 1 ampule 1 ampule ONCE ONCE NEB Last administered on 12:51; Start 07/14/16 at 12:45; Stop 07/14/16 at 12:46; Status DC Cefepime HCl 1000 mg/Sodium Chloride 100 ml @ 200 mls/hr ONCE ONCE IV ; Start 07/14/16 at 12:45; Stop 07/14/16 at 12:45; Status DC Gentamicin Sulfate/Sodium Chloride (Gentamicin 80 Mg Premix) 100 ml @ 200 mls/ hr ONCE ONCE IV Last administered on 07/14/16 14:13; Start 07/14/16 at 12:45; Stop 07/14/16 at 13:14; Status DC Methylprednisolone Sodium Succinate (SoluMEDROL INJ) 125 mg ONCE ONCE IV PUSH Last administered on 07/14/16 15:05; Start 07/14/16 at 13:30; Stop 07/14/16 at 13: 31; Status DC Diphenhydramine HCl (Benadryl) 25 mg ONCE ONCE PO Last administered on 15:05; Start 07/14/16 at 13:30; Stop 07/14/16 at 13:31; Status DC Ranitidine HCl (Zantac) 150 mg ONCE ONCE PO ; Start 07/14/16 at 13:30; Stop 07/14 at 13:31; Status Cancel Dextrose (D50w (Vial) Inj) 25 ml UNSCH PRN IV PUSH HYPOGLYCEMIA-SEE COMMENTS; Start 07/14/16 at 14:15 Glucagon (Glucagon Inj) 1 mg UNSCH PRN OTHER HYPOGLYCEMIA-SEE COMMENTS; Start 07/14/16 at 14:15 Insulin Aspart (NovoLOG SUPPLEMENTAL SCALE) 1 ACHS SLIDING SCALE SQ Last administered on 07/17/16 11:38; Start 07/14/16 at 16:00 Carvedilol (Coreg) 6.25 mg Q12HR PO Last administered on 07/17/16 09:22; Start 07/14/16 at 21:00 Furosemide (Lasix) 40 mg BID@09,18 PO Last administered on 07/17/16 09:22; Start 07/14/16 at 18:00 Losartan Potassium (Cozaar) 25 mg HS PO Last administered on 07/16/16 21:45; Start 07/14/16 at 21:00 Famotidine (Pepcid) 20 mg ONCE ONCE PO Last administered on 07/14/16 15:05; Start 07/14/16 at 15:00; Stop 07/14/16 at 15:01; Status DC Albuterol/ Ipratropium (Duoneb Neb) 1 ampule Q6HR NEB PRN NEB SHORTNESS OF BREATH; Start 07/14/16 at 14:30 Famotidine (Pepcid) 20 mg BID PO Last administered on 07/17/16 09:21; Start 07/14/16 at 21:00 Potassium Chloride (KCl) 20 meq ONCE ONCE PO Last administered on 07/14/16 16: 18; Start 07/14/16 at 14:30; Stop 07/14/16 at 14:31; Status DC Enalaprilat (Vasotec Inj) 1.25 mg Q8H PRN IV PUSH SBP> OR = 180, DBP> OR = 100 Last administered on 07/14/16 18:24; Start 07/14/16 at 14:30 Collagenase (Santyl Oint) 1 applic DAILY TOP Last administered on 07/17/16 09: 23; Start 07/14/16 at 17:00 Ciprofloxacin (Cipro) 500 mg Q12HR PO Last administered on 07/17/16 09:22; Start 07/14/16 at 17:00; Stop 07/21/16 at 16:59 Clindamycin HCl (Cleocin) 300 mg Q8H PO Last administered on 07/17/16 09:22; Start 07/14/16 at 17:00; Stop 07/21/16 at 16:59 Calcium Carbonate (Tums Chew) 500 mg ONCE ONCE CHEW Last administered on 08:17; Start 07/15/16 at 05:15; Stop 07/15/16 at 05:16; Status DC Clopidogrel Bisulfate (Plavix) 75 mg DAILY PO Last administered on 07/17/16 09: 22; Start 07/17/16 at 09:00 A/P Assessment and Plan A/P -possible drug allergic reaction ( patient developed sob,dizziness and headache after she took a dose of Levauin)- now the symptoms have resolved. - open wound on the right leg-previous would culture with pseudomonas/ staph/ strep ID consult appreciated; started on Cipro and Clinda. wound care consulted. -diabetes mellitus; accu-check with SSI -hypertension/ CHF/ PVD; resumed home meds -consulted PT Discharge Planning dc to SNF when arrangements made. see med list. f/u; pcp and wound care. d/w the patient and RN. Semaj Dean MD Jul 17, 2016 11:58
--- NOTE | 2016-07-17 11:59 | HHI.DS ---
Discharge Summary Admission Date Jul 14, 2016 at 14:02 Discharge Date: Jul 17, 2016 Admitting Diagnosis cellulitis failed outpatient therapy, allergic reaction, dyspnea (1) Cellulitis of right lower extremity ICD Code: L03.115 Diagnosis: Principal (2) Allergic reaction ICD Code: T78.40XA Diagnosis: Principal Procedures none Brief History - From Admission patient is a 85 y/o female who had a fall recently and developed a hematoma and cellulitis of the right leg. she was seen in ER earlier this week and was prescribed Clindamycin. at the time wound culture was obtained which came back positive for pseudomonas,staph and strep. she says that she was seen by her PCP the other day and was prescribed Levaquin. she took the first dose today and half an hour later she developed sob, dizziness and headache. she thinks that she had a reaction to levaquin. at the time of my evaluation she was resting more comfortably with no distress. she denies rash, nausea or vomiting. CBC/BMP: 07/14/16 1238 07/14/16 1238 Significant Findings Laboratory Tests Test 07/14/16 12:38 Red Blood Count 3.57 MIL/MM3 (4.00-5.30) Hemoglobin 11.0 GM/DL (11.6-15.3) Hematocrit 32.2 % (35.0-46.0) Monocytes (%) (Auto) 10.4 % (0.0-8.0) Potassium Level 3.4 MEQ/L (3.5-5.1) Chloride Level 96 MEQ/L (98-107) Estimat Glomerular Filtration 82 ML/MIN (>89) Rate Random Glucose 119 MG/DL (74-106) Aspartate Amino Transf 10 U/L (15-37) (AST/SGOT) Troponin I LESS THAN 0.02 NG/ML (0.02-0.05) B-Type Natriuretic Peptide 283 PG/ML (0-100) Albumin 3.1 GM/DL (3.4-5.0) Imaging Last Impressions Chest X-Ray 07/14/16 1225 Signed Impressions: Service Date/Time: Thursday, July 14, 2016 12:35 - CONCLUSION: 1. Cardiomegaly with mild congestive failure. 2. Minimal parenchymal opacity. Frantz Benavidez MD FACR PE at Discharge GENERAL: This is a well-nourished, well-developed patient, in no apparent distress. CARDIOVASCULAR: Regular rate and regular rhythm without murmurs, gallops, or rubs. RESPIRATORY: Clear to auscultation. Breath sounds equal bilaterally. No wheezes , rales, or rhonchi. GASTROINTESTINAL: Abdomen soft, non-tender, nondistended. Normal, active bowel sounds MUSCULOSKELETAL: Extremities without clubbing, cyanosis, or edema. NEURO: Alert & Oriented x4 to person, place, time, situation. Moves all ext x4 skin; right leg covered with clean dressing. Hospital Course -possible drug allergic reaction ( patient developed sob,dizziness and headache after she took a dose of Levauin)- now the symptoms have resolved. - open wound on the right leg-previous would culture with pseudomonas/ staph/ strep ID consult appreciated; started on Cipro and Clinda. wound care consulted. -diabetes mellitus; accu-check with SSI -hypertension/ CHF/ PVD; resumed home meds -consulted PT Pt Condition on Discharge: Good Discharge Disposition: Discharge to SNF Discharge Time: <= 30 minutes Discharge Instructions DIET: Follow Instructions for: Heart Healthy Diet, Diabetic Diet Activities you can perform: Regular-No Restrictions Follow up Referrals: PCP Follow[facility]up [facility] New Medications: Ciprofloxacin (Cipro) 500 Mg Tab 500 MG PO Q12HR infection Days 10 Ref 0 TAB Clindamycin (Cleocin) 150 Mg Cap 300 MG PO Q8H infection Days 10 Ref 0 CAP Continued Medications: B Complex W/ C (Vitamin B Complex-C) 1 Cap Cap 1 CAP PO DAILY Carvedilol (Coreg) 6.25 Mg Tab 6.25 MG PO Q12HR CHF #60 TAB Clopidogrel (Plavix) 75 Mg Tab 75 MG PO DAILY Blood Clot Prevention #30 Ref 0 TAB Furosemide (Lasix) 40 Mg Tab 40 MG PO BID@09,18 CHF #60 TAB Losartan (Losartan) 25 Mg Tab 25 MG PO HS Blood Pressure Management #30 Ref 0 TAB Magnesium Oxide (Magnesium Oxide) 400 Mg Tab 400 MG PO NOON TIME Nutritional Supplement Ref 0 TAB Metformin (Metformin) 1,000 Mg Tab 1000 MG PO BIDPC With meals Blood Sugar Management #60 Ref 0 TAB Multiple Vitamin (Multi Vitamin Daily) 1 Tab Tab 1 TAB PO DAILY [place]-3 Fatty Acids (Fish Oil) 500 Mg Cap 500 MG PO NOON TIME Saccharomyces Boulardii (Florastor) 250 Mg Cap 250 MG PO TIDAC Nutritional Supplement Days 10 Ref 0 CAP Discontinued Medications: Clindamycin (Clindamycin) 150 Mg Cap 300 MG PO Q8HR Infection Days 10 Ref 0 CAP Semaj Dean MD Jul 17, 2016 11:59
[2016-07-17 12:00] VITALS: BP 141/69; PULSE 84; RESP 16; TEMP 95.6; O2SAT 97
[2016-07-17 16:00] VITALS: BP 145/76; PULSE 87; RESP 17; TEMP 95.9; O2SAT 95
[2016-07-17 20:00] VITALS: BP 123/58; PULSE 91; RESP 18; TEMP 97; O2SAT 95
[2016-07-17] MEDS: LOSARTAN 25 MG TAB PO SCH (21:39)
[2016-07-18] VITALS: BP 122/68; PULSE 84; RESP 20; TEMP 98; O2SAT 98
[2016-07-18] MEDS: CLINDAMYCIN 150 MG CAP PO SCH ×2 (02:12→08:37)
[2016-07-18 04:00] VITALS: BP 145/52; PULSE 83; RESP 18; TEMP 97.2; O2SAT 94
[2016-07-18] MEDS: INSULIN ASPART SUPPLEMENTAL SCALE SQ SCH ×2 (07:00→10:03)
[2016-07-18 08:00] VITALS: BP 162/79; PULSE 87; RESP 19; TEMP 96.9; O2SAT 96
[2016-07-18] MEDS: CARVEDILOL 6.25 MG TAB PO SCH (08:37)
[2016-07-18] MEDS: FUROSEMIDE 40 MG TAB PO SCH (08:37)
[2016-07-18] MEDS: FAMOTIDINE 20 MG TAB PO SCH (08:38)
[2016-07-18] MEDS: CIPROFLOXACIN 500 MG TAB PO SCH (08:38)
[2016-07-18] MEDS: CLOPIDOGREL 75 MG TAB PO SCH (08:38)
[2016-07-18] MEDS: COLLAGENASE OINT 30 GM TUBE TOP SCH (08:41)
--- NOTE | 2016-07-18 08:42 | HHI.PR ---
Subjective Remarks Follow-up visit right leg cellulitis, DM, HTN, CHF. Patient seen today. Reports she is doing well. Slept well overnight. No acute issues. Denies any pain/discomfort. Denies SOB/ dyspnea. Denies chest pain, palpitations, headaches, dizziness. Denies fevers, chills, n/v/d. Plan to DC to [facility] and rehabilitation today discussed. Objective Vitals Vital Signs Date Time Temp Pulse Resp B/P Pulse Ox O2 Delivery O2 Flow Rate FiO2 07/18/16 08:00 96.9 87 19 162/79 96 07/18/16 04:00 97.2 83 18 145/52 94 07/18/16 00:00 98.0 84 20 122/68 98 07/17/16 20:00 97.0 91 18 123/58 95 07/17/16 16:00 95.9 87 17 145/76 95 07/17/16 12:00 95.6 84 16 141/69 97 I/O 07/17/16 07/17/16 07/17/16 07/18/16 07/18/16 07/18/16 07:00 15:00 23:00 07:00 15:00 23:00 Intake Total 60 ml 360 ml Output Total 1000 ml Balance 60 ml 360 ml -1000 ml Intake Oral 60 ml 360 ml Output Urine Total 1000 ml # Voids 1 3 # Bowel Movements 0 0 Result Diagram: 07/14/16 1238 07/14/16 1238 Imaging Last Impressions Chest X-Ray 07/14/16 1225 Signed Impressions: Service Date/Time: Thursday, July 14, 2016 12:35 - CONCLUSION: 1. Cardiomegaly with mild congestive failure. 2. Minimal parenchymal opacity. Frantz Benavidez MD FACR Objective Remarks GENERAL: This is a well-nourished, well-developed patient, in no apparent distress. HEENT: Normocephalic. Pupils equal round and reactive. Nose without bleeding. Airway patent. NECK: Trachea midline. No JVD. Supple. CARDIOVASCULAR: Regular rate and rhythm without murmurs, gallops, or rubs. RESPIRATORY: Clear to auscultation. Breath sounds equal bilaterally. No wheezes , rales, or rhonchi. GASTROINTESTINAL: Abdomen soft, non-tender, nondistended. Bowel Sounds normoactive x4. MUSCULOSKELETAL: Extremities without clubbing, cyanosis, or edema. Right lower extremity wound with dressing CDI. NEUROLOGICAL: Awake and alert. Oriented x 3. No focal neuro deficit. ARANA. Normal speech. Procedures none A/P Problem List: (1) Cellulitis of right lower extremity ICD Code: L03.115 Status: Acute (2) Allergic reaction ICD Code: T78.40XA Status: Acute Assessment and Plan Patient is a 85 y/o female who had a fall recently and developed a hematoma and cellulitis of the right leg. she was seen in ER earlier this week and was prescribed Clindamycin. at the time wound culture was obtained which came back positive for pseudomonas,staph and strep. she says that she was seen by her PCP the other day and was prescribed Levaquin. she took the first dose today and half an hour later she developed sob, dizziness and headache. she thinks that she had a reaction to levaquin. -possible drug allergic reaction ( patient developed sob,dizziness and headache after she took a dose of Levauin)- now the symptoms have resolved. - open wound on the right leg-previous would culture with pseudomonas/ staph/ strep ID consult appreciated; started on Cipro and Clinda. wound care consulted. Plan for DC today to [facility]. Continue with wound care. Continue with antibiotic Cipro and clindamycin. -diabetes mellitus; accu-check with SSI -Continue diabetic diet. Patient may restart home meds when she goes to rehabilitation. -hypertension/ CHF/ PVD; resumed home meds - Plavix, carvedilol, losartan, Lasix -consulted PT ambulating with walker. DC to rehabilitation today. DVT prop ambulatory. d/w the patient and RN. Written by Frannie Hua, on behalf of Dr. Almazan on 07/18/16 at . Discharge Planning Spoke with case management. Patient is for DC today to [facility]. DC to SNF when arrangements made. f/u; pcp and wound care. Attending Statement patient was seen today. no new complaints. awaiting discharge to SNF. Problem Qualifiers (1) Allergic reaction: Qualified Code: T78.40XA - Allergic reaction, initial encounter Frannie Reyes Jul 18, 2016 08:42 Semaj Dean MD Jul 18, 2016 11:32
--- NOTE | 2016-07-18 11:58 | HHI.FF ---
Face to Face Verification Diagnosis: (1) Cellulitis of right lower extremity Physical Therapy Order: Evaluate and Treat Home Health Nursing Order: Medical education Signs/symptoms of disease process Wound care and dressing changes Instructions: wound care : cleanse wound with normal saline or wound cleanser and applied non adhesive foam AG dressing over wound and change every 3 days or PRN saturation or dislodgment. I have seen patient Annabelle Álvarez on 07/18/16. My clinical findings support the need for the requested home health care services because: Ltd mobility - disease progression I certify that my clinical findings support that this patient is homebound because: Unsteady gait/balance Semaj Dena MD Jul 18, 2016 11:58
[2016-07-18 12:00] VITALS: BP 106/57; PULSE 82; RESP 18; TEMP 96.4; O2SAT 97
== END 2016-07-18 14:47 | disposition home health service (06) | DRG 204 ==
LOC: NEPA 12:11 → NEDA 14:02 → NEDH 19:12 → N05A 20:48
PROVIDERS: ADMIT Internal Medicine; ATTEND Internal Medicine
DX: R06.02 Shortness of breath (principal); L03.115 Cellulitis of right lower limb; I11.0 Hypertensive heart disease with heart failure; I50.9 Heart failure, unspecified; E11.9 Type 2 diabetes mellitus without complications; B95.61 Methicillin susceptible Staphylococcus aureus infection as the cause of diseases classified elsewhere; B95.1 Streptococcus, group B, as the cause of diseases classified elsewhere; T37.8X5A Adverse effect of other specified systemic anti-infectives and antiparasitics, initial encounter; B96.5 Pseudomonas (aeruginosa) (mallei) (pseudomallei) as the cause of diseases classified elsewhere; R51 Headache; R42 Dizziness and giddiness; I73.9 Peripheral vascular disease, unspecified; E78.5 Hyperlipidemia, unspecified; S81.811A Laceration without foreign body, right lower leg, initial encounter; W01.198A Fall on same level from slipping, tripping and stumbling with subsequent striking against other object, initial encounter; Z79.84 Long term (current) use of oral hypoglycemic drugs; Y92.9 Unspecified place or not applicable
CPT/HCPCS: 71010; 80053; 82550; 82948; 83735; 83880; 84484; 85025; 85610; 85730; 93005; 94664; J1580; J1815; J2930

== ENCOUNTER 2017-10-27 21:39 | Inpatient (IN) | payer OTHER, MEDICARE ==
[~2017-10-27] VITALS: Ht 167.6 cm; Wt 67.4 kg
[~2017-10-27 21:39] MED LIST changes: +CIPR-9 PO; +CLIN150 PO; -CLIN1CAP5 PO
[2017-10-27 21:40] VITALS: BP 211/99; PULSE 119; RESP 20; TEMP 98.2; O2SAT 96
[2017-10-27 21:50] VITALS: O2SAT 97
[2017-10-27 21:53] VITALS: PULSE 97; O2SAT 97
[2017-10-27 22:06] LABS: AUTOMATED NEUTROPHIL # 6.6 TH/MM3 (1.8-7.7); BASOPHIL % 0.5 % (0.0-2.0); EOSINOPHIL # 0.3 TH/MM3 (0-0.4); HEMATOCRIT 35.4 % (35.0-46.0); HEMOGLOBIN 12.1 GM/DL (11.6-15.3); LYMPH % 11.9 % (9.0-44.0); LYMPHOCYTE # 1.1 TH/MM3 (1.0-4.8); MEAN CELL VOLUME 87.9 FL (80.0-100.0); MEAN CORPUSCULAR HGB CONC 34.2 % (32.0-36.0); MEAN PLATELET VOLUME 7.7 FL (7.0-11.0); MONO % 12.2 % (0.0-8.0); MONOCYTE # 1.1 TH/MM3 (0-0.9); NEUT % 72.4 % (16.0-70.0); PLATELET COUNT 248 TH/MM3 (150-450); RED BLOOD COUNT 4.03 MIL/MM3 (4.00-5.30); RED CELL DISTRIBUTION WIDTH 12.7 % (11.6-17.2); WHITE BLOOD COUNT 9.1 TH/MM3 (4.0-11.0)
[2017-10-27 22:14] LABS: PROTHROMBIN TIME - PATIENT 10.5 SEC (9.8-11.6)
--- NOTE | 2017-10-27 22:27 | RADRPT ---
EXAM DATE: 10/27/2017 10:11 PM EDT AGE/SEX: 87 years / Female INDICATIONS: Shortness of breath and chest pain since Sunday. CLINICAL DATA: This is the patient's initial encounter. Patient reports that signs and symptoms have been present for 1 day and indicates a pain score of 5/10. MEDICAL/SURGICAL HISTORY: Chronic obstructive pulmonary disease. Hypertension. Congestive hea rt failure. None. COMPARISON: [facility] [place], 07/14/2016. . FINDINGS: There is mild basilar airspace disease. Chronic interstitial changes present with probable pulmonary fibrosis. No pneumothorax. Heart size enlarged. Tortuous aorta. CONCLUSION: . Mild basilar airspace disease. 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 Basilar opacity has increased s lightly since July 14. Electronically signed by: Rafiq Soria MD 10/27/2017 10:25 PM EDT
--- NOTE | 2017-10-27 22:28 | PD ---
HPI Chief Complaint: Respiratory Distress Time Seen by Provider: 21:42 Travel History International Travel<30 days: No Contact w/Intl Traveler<30days: No Traveled to known affect area: No History of Present Illness HPI 87-year-old female that presents to the ED for evaluation of shortness of breath. Patient comes here by ambulance for evaluation of this. Patient and COPD. Per patient she has been short of breath since the past couple of days. Worse today. She called the ambulance because she could not catch her breath. Ambulance showed up and saw that her oxygenation was 85 on room air. She was given DuoNeb with minimal relief. She was put on a BiPAP with improvement of symptoms. She was given nitro 3 as well as Lasix 40 mg IV. Patient's overall feeling a little bit better but she still BiPAP. She currently denies any chest pain. Per patient she has had episodes like this in the past which is never had to be intubated. She has allergies to different medications. Denies any urinary or bowel movement issues. No fevers chills or sweats. States having some cough recently. She states compliance with her medications at home. Unclear if she uses any oxygen at home and [facility] couldn't really tell me. She denies any recent travel. She states that she takes blood thinners. PFSH Past Medical History Hx Anticoagulant Therapy: Yes Arthritis: Yes (KNEES / HIP) Asthma: No Heart Rhythm Problems: Yes (A FIB) Cancer: No Cardiovascular Problems: Yes High Cholesterol: Yes Chemotherapy: No Chest Pain: No Congestive Heart Failure: Yes COPD: Yes Cerebrovascular Accident: No Diabetes: Yes Patient Takes Glucophage: No Diminished Hearing: No Endocrine: Yes Gastrointestinal Disorders: No Genitourinary: Yes (STAGE 2 RENAL) Headaches: No Hepatitis: No Hiatal Hernia: No Heparin Induced Thrombocytopen: No Hypertension: Yes Immune Disorder: No Implanted Vascular Access Dvce: No Musculoskeletal: Yes Neurologic: Yes Psychiatric: No Reproductive: No Respiratory: Yes Immunizations Current: Yes Migraines: Yes Radiation Therapy: No Seizures: No Sickle Cell Disease: No Sleep Apnea: No Thyroid Disease: Yes Tetanus Vaccination: Unknown Influenza Vaccination: No ?: Not : 4 Para: 4 Past Surgical History Abdominal Surgery: No AICD: No Arteriovenous Shunt: No Cardiac Surgery: Yes (ANGIOPLASTY X 2) Ear Surgery: No Endocrine Surgery: Yes Eye Surgery: No Genitourinary Surgery: No Gynecologic Surgery: Yes (HYSTERECTOMY) Hysterectomy: Yes Insulin Pump: No Joint Replacement: No Neurologic Surgery: No Oral Surgery: No Pacemaker: No Thoracic Surgery: No Other Surgery: Yes Social History Alcohol Use: Yes (OCCASIONALLY ) Tobacco Use: No Substance Use: No Allergies-Medications (Allergen,Severity, Reaction): Coded Allergies: Iodinated Contrast- Oral and IV Dye (Unverified Allergy, Severe, HIVES, ) itching, sneezing Sulfa (Sulfonamide Antibiotics) (Unverified Allergy, Severe, RASH, 10/27/17 ) diatrizoate meglumine (Unverified Allergy, Severe, ITCHING,REDNESS,SOB, ) gadobenic acid (Unverified Allergy, Severe, ITCHING,REDNESS,SOB, 10/27/17) gadodiamide (Unverified Allergy, Severe, ITCHING,REDNESS,SOB, 10/27/17) gadoteridol (Unverified Allergy, Severe, ITCHING,REDNESS,SOB, 10/27/17) iodixanol (Unverified Allergy, Severe, ITCHING,REDNESS,SOB, 10/27/17) iohexol (Unverified Allergy, Severe, ITCHING,REDNESS,SOB, 10/27/17) penicillin G (Unverified Allergy, Severe, SOB, RASH, 10/27/17) Reported Meds & Prescriptions Reported Meds & Active Scripts Active Coreg (Carvedilol) 6.25 Mg Tab 6.25 Mg PO Q12HR Lasix (Furosemide) 40 Mg Tab 40 Mg PO BID@ Reported Vitamin B Complex-C (B Complex W/ C) 1 Cap Cap 1 Cap PO DAILY Magnesium Oxide 400 Mg Tab 400 Mg PO NOON TIME Multi Vitamin Daily (Multiple Vitamin) 1 Tab Tab 1 Tab PO DAILY Losartan (Losartan Potassium) 25 Mg Tab 25 Mg PO HS Fish Oil ([place]-3 Fatty Acids) 500 Mg Cap 500 Mg PO NOON TIME Metformin (Metformin HCl) 1,000 Mg Tab 1,000 Mg PO BIDPC With meals Plavix (Clopidogrel Bisulfate) 75 Mg Tab 75 Mg PO DAILY Review of Systems Except as stated in HPI: all other systems reviewed are Neg Physical Exam Narrative GENERAL: Well-nourished, well-developed patient in no apparent distress. SKIN: Warm and dry. HEAD: Atraumatic. Normocephalic. EYES: Pupils equal and round reactive to light and accommodation. No scleral icterus. No injection or drainage. ENT: No nasal bleeding or discharge. Mucous membranes pink and moist. TMs are clear with no sign of infection or perforation. No mastoid tenderness. Ear canals are intact bilaterally. No lymphadenopathy. Nostril mucosa is red and moist with clear mucus noted. No sinus tenderness to palpation noted. Tonsils are not enlarged or swollen. No ulvua Deviation. Tongue is midline. NECK: Trachea midline. No JVD. No meningeal signs noted CARDIOVASCULAR: Regular rate and rhythm. RESPIRATORY: No accessory muscle use. Rales heard in all sounds. Breath sounds equal bilaterally. GASTROINTESTINAL: Abdomen soft, non-tender, nondistended. Hepatic and splenic margins not palpable. MUSCULOSKELETAL: Extremities without clubbing, cyanosis, or edema. No obvious deformities. Full range of motion of the upper and lower extremities bilaterally. 2+ pulses bilaterally. NEUROLOGICAL: Awake and alert. No obvious cranial nerve deficits. Motor grossly within normal limits. Five out of 5 muscle strength in the arms and legs. Normal speech. PSYCHIATRIC: Appropriate mood and affect; insight and judgment normal. Data Data Last Documented VS Vital Signs Date Time Temp Pulse Resp B/P (MAP) Pulse Ox O2 Delivery O2 Flow Rate FiO2 10/27/17 21:53 97 97 CPAP 10/27/17 21:50 30 10/27/17 21:40 98.2 20 211/99 (136) Orders Orders Electrocardiogram (10/27/17 21:43) Complete Blood Count With Diff (10/27/17 21:43) Comprehensive Metabolic Panel (10/27/17 21:43) Ckmb (Isoenzyme) Profile (10/27/17 21:43) Troponin I (10/27/17 21:43) B-Type Natriuretic Peptide (10/27/17 21:43) Prothrombin Time / Inr (Pt) (10/27/17 21:43) Act Partial Throm Time (Ptt) (10/27/17 21:43) Arterial Blood Gas (Abg) (10/27/17 21:43) Magnesium (Mg) (10/27/17 21:43) Chest, Single Ap (10/27/17 21:43) Iv Access Insert/Monitor (10/27/17 21:43) Ecg Monitoring (10/27/17 21:43) Oximetry (10/27/17 21:43) Resp Bipap / Cpap Non Invas Vt (10/27/17 ) Albuterol-Ipratropium Neb (Duoneb Neb) (10/27/17 21:45) Carvedilol (Coreg) (10/27/17 22:30) Losartan (Cozaar) (10/27/17 22:30) Admit Order (Ed Use Only) (10/27/17 23:04) Labs Laboratory Tests Test 10/27/17 21:50 10/27/17 22:36 White Blood Count 9.1 TH/MM3 Red Blood Count 4.03 MIL/MM3 Hemoglobin 12.1 GM/DL Hematocrit 35.4 % Mean Corpuscular Volume 87.9 FL Mean Corpuscular Hemoglobin 30.0 PG Mean Corpuscular Hemoglobin Concent 34.2 % Red Cell Distribution Width 12.7 % Platelet Count 248 TH/MM3 Mean Platelet Volume 7.7 FL Neutrophils (%) (Auto) 72.4 % Lymphocytes (%) (Auto) 11.9 % Monocytes (%) (Auto) 12.2 % Eosinophils (%) (Auto) 3.0 % Basophils (%) (Auto) 0.5 % Neutrophils # (Auto) 6.6 TH/MM3 Lymphocytes # (Auto) 1.1 TH/MM3 Monocytes # (Auto) 1.1 TH/MM3 Eosinophils # (Auto) 0.3 TH/MM3 Basophils # (Auto) 0.0 TH/MM3 CBC Comment DIFF FINAL Differential Comment Prothrombin Time 10.5 SEC Prothromb Time International Ratio 1.0 RATIO Activated Partial Thromboplast Time 28.2 SEC Blood Urea Nitrogen 11 MG/DL Creatinine 0.71 MG/DL Random Glucose 159 MG/DL Total Protein 7.4 GM/DL Albumin 3.2 GM/DL Calcium Level 9.0 MG/DL Magnesium Level 1.7 MG/DL Alkaline Phosphatase 79 U/L Aspartate Amino Transf (AST/SGOT) 10 U/L Alanine Aminotransferase (ALT/SGPT) 15 U/L Total Bilirubin 0.6 MG/DL Sodium Level 123 MEQ/L Potassium Level 3.6 MEQ/L Chloride Level 85 MEQ/L Carbon Dioxide Level 25.4 MEQ/L Anion Gap 13 MEQ/L Estimat Glomerular Filtration Rate 78 ML/MIN Total Creatine Kinase 55 U/L Troponin I LESS THAN 0.02 NG/ML B-Type Natriuretic Peptide 435 PG/ML Blood Gas Puncture Site RT RADIAL Blood Gas Patient Temperature 98.6 Blood Gas HCO3 29 mmol/L Blood Gas Base Excess 4.4 mmol/L Blood Gas Oxygen Saturation 92 % Arterial Blood pH 7.39 Arterial Blood Partial Pressure CO2 49 mmHg Arterial Blood Partial Pressure O2 71 mmHG Arterial Blood Oxygen Content 15.5 Vol % Arterial Blood Carboxyhemoglobin 1.5 % Arterial Blood Methemoglobin 0.4 % Blood Gas Hemoglobin 12.0 G/DL Oxygen Delivery Device BiPAP Blood Gas Ventilator Setting IPAP10 / EPAP5 Blood Gas Inspired Oxygen 30 % MDM Medical Decision Making Medical Screen Exam Complete: Yes Emergency Medical Condition: Yes Medical Record Reviewed: Yes Interpretation(s) CBC & BMP Diagram 10/27/17 21:50 Total Protein 7.4, Albumin 3.2 L, Calcium Level 9.0, Magnesium Level 1.7, Alkaline Phosphatase 79, Aspartate Amino Transf (AST/SGOT) 10 L, Alanine Aminotransferase (ALT/SGPT) 15, Total Bilirubin 0.6 Last Impressions Chest X-Ray 10/27/172142 Signed Impressions: CONCLUSION: . Mild basilar airspace disease. 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 Basilar o pacity has increased slightly since July 14. BNP elevated, CK and troponin negative Differential Diagnosis CHF exacerbation versus respiratory distress versus respiratory failure versus COPD versus fluid overload Narrative Course 87-year-old female that presents to the ED for evaluation of shortness of breath. Patient was properly examined and was found to have signs and symptoms consistent appears to be respiratory distress. Unclear etiology but likely CHF exacerbation. She does have some swelling to her ankles bilaterally which per patient is new. She denies any chest pain. Shortness of breath has been ongoing for 2 days. She was put on BiPAP with good improvement by ambulance. She was kept on the BiPAP for now. She was given duo nebs. Labs were ordered. My attending Dr. Gamble was made aware of findings and evaluated the patient herself. She agrees with plan. Labs and imaging did show elevated [employer]IST[employer] MA[employer]GER as well as hyponatremia. Case was discussed with my attending who agrees the patient should be admitted for further evaluation. Patient will be admitted to Dr. Garner who agreed to take the patient. Patient was admitted to her service. Diagnosis Primary Impression: Respiratory distress Additional Impressions: Acute hyponatremia CHF exacerbation Qualified Codes: I50.9 - Heart failure, unspecified Admitting Information Admitting Physician Requests: Admit Naldo Lino Oct 27, 2017 22:28
[2017-10-27] MEDS ORDERED: LOSARTAN 25 MG TAB PO ONE (22:30)
[2017-10-27] MEDS ORDERED: CARVEDILOL 6.25 MG TAB PO ONE (22:30)
[2017-10-27] MEDS: RESP: ALBUTEROL 2.5 MG/IPRATROPIUM 0.5 MG NEB (SCH) INH (22:31)
[2017-10-27 22:39] LABS: ALBUMIN 3.2 GM/DL (3.4-5.0); ALKALINE PHOSPHATASE 79 U/L (45-117); ALT (GPT) 15 U/L (10-53); AST (GOT) 10 U/L (15-37); BICARBONATE 25.4 MEQ/L (21.0-32.0); BLOOD UREA NITROGEN 11 MG/DL (7-18); CHLORIDE 85 MEQ/L (98-107); CREATININE 0.71 MG/DL (0.50-1.00); GLOMERULAR FILTRATION RATE 78 ML/MIN (>89); GLUCOSE,RANDOM 159 MG/DL (74-106); MAGNESIUM 1.7 MG/DL (1.5-2.5); TOTAL BILIRUBIN ADULT 0.6 MG/DL (0.2-1.0); TOTAL PROTEIN 7.4 GM/DL (6.4-8.2); TROPONIN I LESS THAN 0.02 NG/ML (0.02-0.05)
[2017-10-27 22:41] LABS: SODIUM (NA) 123 MEQ/L (136-145)
--- NOTE | 2017-10-27 23:10 | HHI.HP ---
HPI Service [facility] Primary Care Physician German Ferris MD Admission Diagnosis acute respiratory failure, CHF exacerbation, Hyponatremia Diagnoses: (1) CHF (congestive heart failure) Diagnosis: Principal (2) Acute respiratory failure Diagnosis: Principal (3) HTN (hypertension) Diagnosis: Principal (4) Hyponatremia Diagnosis: Principal (5) DM (diabetes mellitus) Diagnosis: Principal Travel History International Travel<30 Days: No Contact w/Intl Traveler <30 Da: No Traveled to Known Affected Are: No History of Present Illness This is an 87-year-old female with a PMH of HTN, Hyperlipidemia, CAD, CHF (Echo 05/05/2016 w/ EF 25-30%) and DM who was brought to the ER by EMS due to SOB. Found to have O2 sat 85% on RA, s/p Lasix 40mg IV and NTG by EMS in addition to DuoNeb w/ some improvement, however significant SOB and placed on BIPAP. Denies fever, chills or chest pain. States she follows w/ Dr. Ugalde and has follow up appointment scheduled for Sunday. On arrival, BP 211/99, HR 119, O2 sat 96% on BiPAP, FiO2 30%, Afebrile. CBC unremarkable. Na 123. GFR 78. Troponin negative. BNP 435. INR 1.0. CXR with basilar airspace disease likely pulmonary fibrosis. On exam, pt w/ 2+ edema. Review of Systems Except as stated in HPI: all other systems reviewed are Neg ROS: 14 point review of systems otherwise negative. Past Family Social History Past Medical History PMH: HTN, Hyperlipidemia, CAD, CHF (Echo 05/05/2016 w/ EF 25-30%) and DM Past Surgical History PAST SURGICAL HISTORY: Cardiac Cath, Hysterectomy Allergies: Coded Allergies: Iodinated Contrast- Oral and IV Dye (Unverified Allergy, Severe, HIVES, ) itching, sneezing Sulfa (Sulfonamide Antibiotics) (Unverified Allergy, Severe, RASH, 10/27/17 ) diatrizoate meglumine (Unverified Allergy, Severe, ITCHING,REDNESS,SOB, ) gadobenic acid (Unverified Allergy, Severe, ITCHING,REDNESS,SOB, 10/27/17) gadodiamide (Unverified Allergy, Severe, ITCHING,REDNESS,SOB, 10/27/17) gadoteridol (Unverified Allergy, Severe, ITCHING,REDNESS,SOB, 10/27/17) iodixanol (Unverified Allergy, Severe, ITCHING,REDNESS,SOB, 10/27/17) iohexol (Unverified Allergy, Severe, ITCHING,REDNESS,SOB, 10/27/17) penicillin G (Unverified Allergy, Severe, SOB, RASH, 10/27/17) Family History PAST FAMILY HISTORY: Reviewed. No h/o DM or CAD Social History PAST SOCIAL HISTORY: Occasional alcohol. Negative for tobacco or drugs. Physical Exam Vital Signs Vital Signs Date Time Temp Pulse Resp B/P (MAP) Pulse Ox O2 Delivery O2 Flow Rate FiO2 10/27/17 21:53 97 97 CPAP 10/27/17 21:50 97 BiPAP 30 10/27/17 21:50 97 30 10/27/17 21:40 98.2 119 20 211/99 (136) 96 Physical Exam PE: GENERAL: Extremely pleasant elderly white female in no acute distress. Currently on BiPAP, able to communicate and answer questions. Daughter at bedside. HEENT: PERRLA, EOMI. No scleral icterus or conjunctival pallor. No lid lag or facial droop. CARDIOVASCULAR: Regular rate and rhythm. No obvious murmurs to auscultation. No chest tenderness to palpation. RESPIRATORY: No obvious rhonchi. Occasional wheezing. Clear to auscultation. Breath sounds equal bilaterally. GASTROINTESTINAL: Abdomen soft, non-tender, nondistended. BS normal. MUSCULOSKELETAL: Extremities without clubbing, cyanosis. 2+ edema. No obvious deformities. NEUROLOGICAL: Awake, alert and oriented x4. No focal neurologic deficits. Moving both upper and lower extremities spontaneously. Laboratory Laboratory Tests Test 10/27/17 21:50 10/27/17 22:36 White Blood Count 9.1 Red Blood Count 4.03 Hemoglobin 12.1 Hematocrit 35.4 Mean Corpuscular Volume 87.9 Mean Corpuscular Hemoglobin 30.0 Mean Corpuscular Hemoglobin Concent 34.2 Red Cell Distribution Width 12.7 Platelet Count 248 Mean Platelet Volume 7.7 Neutrophils (%) (Auto) 72.4 Lymphocytes (%) (Auto) 11.9 Monocytes (%) (Auto) 12.2 Eosinophils (%) (Auto) 3.0 Basophils (%) (Auto) 0.5 Neutrophils # (Auto) 6.6 Lymphocytes # (Auto) 1.1 Monocytes # (Auto) 1.1 Eosinophils # (Auto) 0.3 Basophils # (Auto) 0.0 CBC Comment DIFF FINAL Differential Comment Prothrombin Time 10.5 Prothromb Time International Ratio 1.0 Activated Partial Thromboplast Time 28.2 Blood Urea Nitrogen 11 Creatinine 0.71 Random Glucose 159 Total Protein 7.4 Albumin 3.2 Calcium Level 9.0 Magnesium Level 1.7 Alkaline Phosphatase 79 Aspartate Amino Transf (AST/SGOT) 10 Alanine Aminotransferase (ALT/SGPT) 15 Total Bilirubin 0.6 Sodium Level 123 Potassium Level 3.6 Chloride Level 85 Carbon Dioxide Level 25.4 Anion Gap 13 Estimat Glomerular Filtration Rate 78 Total Creatine Kinase 55 Troponin I LESS THAN 0.02 B-Type Natriuretic Peptide 435 Blood Gas Puncture Site RT RADIAL Blood Gas Patient Temperature 98.6 Blood Gas HCO3 29 Blood Gas Base Excess 4.4 Blood Gas Oxygen Saturation 92 Arterial Blood pH 7.39 Arterial Blood Partial Pressure CO2 49 Arterial Blood Partial Pressure O2 71 Arterial Blood Oxygen Content 15.5 Arterial Blood Carboxyhemoglobin 1.5 Arterial Blood Methemoglobin 0.4 Blood Gas Hemoglobin 12.0 Oxygen Delivery Device BiPAP Blood Gas Ventilator Setting IPAP10 / EPAP5 Blood Gas Inspired Oxygen 30 Result Diagram: 10/27/17214910/27/172149 Caprini VTE Risk Assessment Caprini VTE Risk Assessment: Mod/High Risk (score >= 2) Caprini Risk Assessment Model Point Value = 1 Point Value = 2 Point Value = 3 Point Value = 5 Age 41-60 Minor surgery BMI > 25 kg/m2 Swollen legs Varicose veins or History of unexplained or recurrent spontaneous Oral contraceptives or hormone replacement Sepsis (< 1 month) Serious lung disease, including pneumonia (< 1 month) Abnormal pulmonary function Acute myocardial infarction Congestive heart failure (< 1 month) History of inflammatory bowel disease Medical patient at bed rest Age 61-74 Arthroscopic surgery Major open surgery (> 45 min) Laparoscopic surgery (> 45 min) Malignancy Confined to bed (> 72 hours) Immobilizing plaster cast Central venous access Age >= 75 History of VTE Family history of VTE Factor V Leiden Prothrombin [id number] Lupus anticoagulant Anticardiolipin antibodies Elevated serum homocysteine Heparin-induced thrombocytopenia Other congenital or acquired thrombophilia Stroke (< 1 month) Elective arthroplasty Hip, pelvis, or leg fracture Acute spinal cord injury (< 1 month) Prophylaxis Regimen Total Risk Factor Score Risk Level Prophylaxis Regimen 0-1 Low Early ambulation 2 Moderate Order ONE of the following: *Sequential Compression Device (SCD) *Heparin 5000 units SQ BID 3-4 Higher Order ONE of the following medications: *Heparin 5000 units SQ TID *Enoxaparin/Lovenox 40 mg SQ daily (WT < 150 kg, CrCl > 30 mL/min) *Enoxaparin/Lovenox 30 mg SQ daily (WT < 150 kg, CrCl > 10-29 mL/min) *Enoxaparin/Lovenox 30 mg SQ BID (WT < 150 kg, CrCl > 30 mL/min) AND/OR *Sequential Compression Device (SCD) 5 or more Highest Order ONE of the following medications: *Heparin 5000 units SQ TID (Preferred with Epidurals) *Enoxaparin/Lovenox 40 mg SQ daily (WT < 150 kg, CrCl > 30 mL/min) *Enoxaparin/Lovenox 30 mg SQ daily (WT < 150 kg, CrCl > 10-29 mL/min) *Enoxaparin/Lovenox 30 mg SQ BID (WT < 150 kg, CrCl > 30 mL/min) AND *Sequential Compression Device (SCD) Assessment and Plan Problem List: (1) CHF (congestive heart failure) ICD Code: I50.9 - Heart failure, unspecified (2) Acute respiratory failure ICD Code: J96.00 - Acute respiratory failure, unspecified whether with hypoxia or hypercapnia (3) Hyponatremia ICD Code: E87.1 - Hypo-osmolality and hyponatremia (4) HTN (hypertension) ICD Code: I10 - Essential (primary) hypertension (5) DM (diabetes mellitus) ICD Code: E11.9 - Type 2 diabetes mellitus without complications Assessment and Plan A/P: 1. CHF: Acute on Chronic. Systolic. Echo 05/05/16 w/ EF 25-30%, BNP 435, CXR w/ likely fibrosis, images reviewed by me. S/p Lasix 40mg IV by EMS, continue w/ diuresis, monitor I/O. Resume home medications. Follows w/ Dr. Ugalde as outpatient, has appointment on Sunday, will consult for further evaluation, recommendations. Check cardiac enzymes to eval for underlying ischemia. 2. Acute Respiratory Failure: w/ Hypoxia, O2 sat 95% on RA upon EMS arrival, currently on BIPAP, will wean as tolerated, monitor O2. +wheezing on exam, DuoNeb prn. 3. Hyponatremia: Na 123, will hold IVF at this time in light of Acute CHF w/ respiratory failure, check U/a to eval for underlying UTI, repeat labs in am. 4. HTN: Uncontrolled. BP 211/99, HR 119 on arrival, Lopressor IV x1, resume home medications, monitor BP, antihypertensives as needed. 5. DM: Sliding scale w/ Accu-Cheks, hold Metformin for now for possible cardiac intervention. 6. DVT Prophylaxis: Heparin sq 7. Social work for d/c planning as needed 8. Case discussed w/ ER physician at length, labs/records/imaging reviewed by me. Physician Certification 2 Midnight Certification Type: Admission for Inpatient Services Order for Inpatient Services The services are ordered in accordance with Medicare regulations or non- Medicare payer requirements, as applicable. In the case of services not specified as inpatient-only, they are appropriately provided as inpatient services in accordance with the 2-midnight benchmark. Estimated LOS (days): 2 days is the estimated time the patient will need to remain in the hospital, assuming treatment plan goals are met and no additional complications. Post-Hospital Plan: Not yet determined Abi Garner MD Oct 27, 2017 23:10
[2017-10-27] MEDS ORDERED: METOCLOPRAMIDE HCL 10 MG/2 ML VIAL IV PUSH PRN (23:15)
[2017-10-27] MEDS ORDERED: SENNOSIDES 8.6 MG TAB PO PRN (23:15)
[2017-10-27] MEDS ORDERED: GLUCAGON 1 MG/ML VIAL OTHER PRN (23:15)
[2017-10-27] MEDS ORDERED: MAGNESIUM HYDROXIDE SUSP 30 ML CUP PO PRN (23:15)
[2017-10-27] MEDS ORDERED: ACETAMINOPHEN/HYDROcodone 325 MG/5 MG TAB PO PRN (23:15)
[2017-10-27] MEDS ORDERED: LACTULOSE SYRUP 20 GM/30 ML CUP PO PRN (23:15)
[2017-10-27] MEDS ORDERED: ACETAMINOPHEN 325 MG TAB PO PRN (23:15)
[2017-10-27] MEDS ORDERED: SODIUM CHLORIDE 0.9% FLUSH 10 ML FLUSH IV FLUSH PRN (23:15)
[2017-10-27] MEDS ORDERED: DEXTROSE 50% IN WATER 50 ML VIAL(D50) IV PUSH PRN (23:15)
[2017-10-27] MEDS ORDERED: BISACODYL 10 MG SUPP RECTAL PRN (23:15)
[2017-10-27] MEDS ORDERED: MORPHINE SULFATE 2 MG/ML SYRINGE IV PUSH PRN (23:15)
[2017-10-27] MEDS ORDERED: METOPROLOL TARTRATE 5 MG/5 ML VIAL IV PUSH ONE (23:30)
[2017-10-28] VITALS (35 sets, daily range): BP systolic 136–160; BP diastolic 61–83; PULSE 64–100; RESP 16–24; TEMP 97–98.6; O2SAT 94–100
--- NOTE | 2017-10-28 02:57 | PD ---
Physical Exam Narrative I, Dr. Gamble, have reviewed the advance practice practitioner's documentation and am in agreement, met with the patient face to face, made the diagnosis, and the medical decision making was done by me. *My assessment and Findings: Patient is an 87-year-old female brought in by EMS due to respiratory distress. She was placed on CPAP by EMS prior to arrival. Patient states that she has been short of breath for the past few days, but it got worse tonight. She denies any chest pain. Patient is breathing comfortably on BiPAP. There is no edema of her legs. Data Data Last Documented VS Vital Signs Date Time Temp Pulse Resp B/P (MAP) Pulse Ox O2 Delivery O2 Flow Rate FiO2 10/27/17 21:53 97 97 CPAP 10/27/17 21:50 30 10/27/17 21:40 98.2 20 211/99 (136) Orders Orders Electrocardiogram (10/27/17 21:43) Complete Blood Count With Diff (10/27/17 21:43) Comprehensive Metabolic Panel (10/27/17 21:43) Ckmb (Isoenzyme) Profile (10/27/17 21:43) Troponin I (10/27/17 21:43) B-Type Natriuretic Peptide (10/27/17 21:43) Prothrombin Time / Inr (Pt) (10/27/17 21:43) Act Partial Throm Time (Ptt) (10/27/17 21:43) Arterial Blood Gas (Abg) (10/27/17 21:43) Magnesium (Mg) (10/27/17 21:43) Chest, Single Ap (10/27/17 21:43) Iv Access Insert/Monitor (10/27/17 21:43) Ecg Monitoring (10/27/17 21:43) Oximetry (10/27/17 21:43) Resp Bipap / Cpap Non Invas Vt (10/27/17 ) Albuterol-Ipratropium Neb (Duoneb Neb) (10/27/17 21:45) Carvedilol (Coreg) (10/27/17 22:30) Losartan (Cozaar) (10/27/17 22:30) Admit Order (Ed Use Only) (10/27/17 23:04) Labs Laboratory Tests Test 10/27/17 21:50 10/27/17 22:36 White Blood Count 9.1 TH/MM3 Red Blood Count 4.03 MIL/MM3 Hemoglobin 12.1 GM/DL Hematocrit 35.4 % Mean Corpuscular Volume 87.9 FL Mean Corpuscular Hemoglobin 30.0 PG Mean Corpuscular Hemoglobin Concent 34.2 % Red Cell Distribution Width 12.7 % Platelet Count 248 TH/MM3 Mean Platelet Volume 7.7 FL Neutrophils (%) (Auto) 72.4 % Lymphocytes (%) (Auto) 11.9 % Monocytes (%) (Auto) 12.2 % Eosinophils (%) (Auto) 3.0 % Basophils (%) (Auto) 0.5 % Neutrophils # (Auto) 6.6 TH/MM3 Lymphocytes # (Auto) 1.1 TH/MM3 Monocytes # (Auto) 1.1 TH/MM3 Eosinophils # (Auto) 0.3 TH/MM3 Basophils # (Auto) 0.0 TH/MM3 CBC Comment DIFF FINAL Differential Comment Prothrombin Time 10.5 SEC Prothromb Time International Ratio 1.0 RATIO Activated Partial Thromboplast Time 28.2 SEC Blood Urea Nitrogen 11 MG/DL Creatinine 0.71 MG/DL Random Glucose 159 MG/DL Total Protein 7.4 GM/DL Albumin 3.2 GM/DL Calcium Level 9.0 MG/DL Magnesium Level 1.7 MG/DL Alkaline Phosphatase 79 U/L Aspartate Amino Transf (AST/SGOT) 10 U/L Alanine Aminotransferase (ALT/SGPT) 15 U/L Total Bilirubin 0.6 MG/DL Sodium Level 123 MEQ/L Potassium Level 3.6 MEQ/L Chloride Level 85 MEQ/L Carbon Dioxide Level 25.4 MEQ/L Anion Gap 13 MEQ/L Estimat Glomerular Filtration Rate 78 ML/MIN Total Creatine Kinase 55 U/L Troponin I LESS THAN 0.02 NG/ML B-Type Natriuretic Peptide 435 PG/ML Blood Gas Puncture Site RT RADIAL Blood Gas Patient Temperature 98.6 Blood Gas HCO3 29 mmol/L Blood Gas Base Excess 4.4 mmol/L Blood Gas Oxygen Saturation 92 % Arterial Blood pH 7.39 Arterial Blood Partial Pressure CO2 49 mmHg Arterial Blood Partial Pressure O2 71 mmHG Arterial Blood Oxygen Content 15.5 Vol % Arterial Blood Carboxyhemoglobin 1.5 % Arterial Blood Methemoglobin 0.4 % Blood Gas Hemoglobin 12.0 G/DL Oxygen Delivery Device BiPAP Blood Gas Ventilator Setting IPAP10 / EPAP5 Blood Gas Inspired Oxygen 30 % MDM Supervised Visit with BOB: Yes Narrative Course Chest x-ray shows pulmonary fibrosis. Labs show a sodium of 123. Patient will be admitted for further management. Diagnosis Primary Impression: Respiratory distress Additional Impressions: CHF exacerbation Qualified Codes: I50.9 - Heart failure, unspecified Acute hyponatremia Admitting Information Admitting Physician Requests: Admit Keya Gamble MD Oct 28, 2017 02:57
[2017-10-28] MEDS: INSULIN ASPART SUPPLEMENTAL SCALE SQ SCH ×4 (08:00→20:25)
[2017-10-28] MEDS: CLOPIDOGREL 75 MG TAB PO SCH (08:17)
[2017-10-28] MEDS: CARVEDILOL 6.25 MG TAB PO SCH ×2 (08:17→20:25)
[2017-10-28] MEDS: SODIUM CHLORIDE 0.9% FLUSH 10 ML FLUSH IV FLUSH SCH ×2 (08:18→20:25)
[2017-10-28] MEDS: DOCUSATE SODIUM 50 MG/SENNA 8.6 MG TAB PO SCH ×2 (08:18→20:31)
[2017-10-28] MEDS ORDERED: FUROSEMIDE 40 MG/4 ML VIAL IV PUSH SCH (09:00)
[2017-10-28] MEDS ORDERED: HEPARIN SODIUM - SQ 10,000 UNITS/ML VIAL SQ SCH (09:00)
[2017-10-28] MEDS ORDERED: NON-FORMULARY DRUG (Multiple Vitamin (Multi Vitamin Daily) 1 TAB) PO SCH (09:00)
--- NOTE | 2017-10-28 09:41 | MB ---
cc: Barron Hardy MD DATE: 10/28/2017 REASON FOR CONSULTATION: Congestive heart failure. HISTORY OF PRESENT ILLNESS: The patient is an 87-year-old white female with a history of chronic atrial fibrillation, congestive heart failure in 2015, at which time, her ejection fraction was 25-30%, COPD, diabetes, peripheral vascular disease, who presented to the hospital with an approximately 2-day history of increasing shortness of breath. She denies chest pain, wheezing, cough, paroxysmal nocturnal dyspnea, dizziness, syncope, near syncope, palpitations, fevers. In the last few days, she has had minimal to mild bilateral ankle edema. She reports compliance with her medications and no added salt diet. Since coming into the hospital, her dyspnea has considerably improved. PAST MEDICAL HISTORY: 1. Chronic atrial fibrillation. 2. Congestive heart failure in 2015, at which time, her ejection fraction was 25-30%. Her last echo 09/2016 showed ejection fraction of 45-50%. 3. Chronic obstructive pulmonary disease. 4. Diabetes. 5. Hypertension. 6. Peripheral vascular disease, status post atherectomy of the left femoral popliteal region 2011. CARDIAC MEDICATIONS: At home: 1. Plavix 75 mg daily. 2. Losartan 25 mg at bedtime. 3. Coreg 6.25 mg b.i.d. 4. Lasix 40 mg b.i.d. FAMILY HISTORY: Noncontributory. SOCIAL HISTORY: The patient is a former smoker. She denies alcohol abuse. REVIEW OF SYSTEMS: As in history of present illness, otherwise negative or noncontributory. She also denies headache, abdominal pain, melena, dyspepsia, bright red blood per rectum, recent flu symptoms. PHYSICAL EXAMINATION: VITAL SIGNS: Her blood pressure 153/73 with a pulse of 64, respirations 20. GENERAL: She is a well-developed, well-nourished white female, in no acute distress. NECK: Jugular venous pressure is normal. Carotid pulses are 2+ bilaterally and without bruits. CHEST: Reveals few left basilar crackles. CARDIAC: She has an irregularly irregular rhythm without S3 or murmur. ABDOMEN: She has a soft, nontender abdomen. Bowel sounds are present. There is no definite hepatosplenomegaly. EXTREMITIES: Reveals no clubbing, cyanosis or edema. LABORATORY DATA: Includes normal CBC. Potassium 3.6, sodium 123, BUN 11, creatinine 0.71. Troponin less than 0.02, CK 55. Brain natriuretic peptide level 435. INR 1.0. EKG shows atrial fibrillation, nonspecific intraventricular conduction delay, nonspecific lateral ST abnormality. Chest x-ray shows mild basilar airspace disease with chronic interstitial changes. IMPRESSION: Increased shortness of breath in this 87-year-old white female with a history of chronic atrial fibrillation, congestive heart failure in 2016, mildly reduced ejection fraction of 45-50% by echo last year, COPD, diabetes, hypertension, peripheral vascular disease. I suspect most of the dyspnea is pulmonary in origin. Her chest x-ray is not entirely consistent with congestive heart failure, nor is her exam. There is no evidence for acute coronary syndrome. With respect to her atrial fibrillation, it is chronic. The thromboembolic risks have been discussed with the patient. Her thromboembolic risk is indeed high with her history of diabetes, hypertension, peripheral vascular disease, advanced age. At this point, she is agreeable to starting Eliquis. RECOMMENDATIONS: 1. Start Eliquis 2.5 mg b.i.d.; continue Plavix. 2. Would consider changing the intravenous Lasix back to oral administration. 3. Continue her beta kareem. Agree with holding losartan for now given her severe hyponatremia. 4. We will followup as needed. She can followup with Dr. Alexis Ugalde in the near future. Barron Hardy MD [facility]/TL , 08:42 AM , 09:40 AM CHRIS
[2017-10-28 09:46] LABS: ALBUMIN 2.9 GM/DL (3.4-5.0); AST (GOT) 12 U/L (15-37); BICARBONATE 30.5 MEQ/L (21.0-32.0); BLOOD UREA NITROGEN 9 MG/DL (7-18); CALCIUM 8.8 MG/DL (8.5-10.1); CHLORIDE 87 MEQ/L (98-107); CREATININE 0.74 MG/DL (0.50-1.00); GLOMERULAR FILTRATION RATE 74 ML/MIN (>89); GLUCOSE,RANDOM 135 MG/DL (74-106); SODIUM (NA) 128 MEQ/L (136-145)
[2017-10-28 09:47] LABS: ALT (GPT) 13 U/L (10-53)
[2017-10-28 09:50] LABS: ALKALINE PHOSPHATASE 72 U/L (45-117); TOTAL BILIRUBIN ADULT 0.7 MG/DL (0.2-1.0); TOTAL PROTEIN 6.7 GM/DL (6.4-8.2); TROPONIN I LESS THAN 0.02 NG/ML (0.02-0.05)
[2017-10-28] MEDS: MULTIVITAMIN TAB PO SCH (09:54)
[2017-10-28 10:00] LABS: AUTOMATED NEUTROPHIL # 4.6 TH/MM3 (1.8-7.7); BASOPHIL % 0.4 % (0.0-2.0); EOSINOPHIL # 0.2 TH/MM3 (0-0.4); EOSINOPHIL % 2.4 % (0.0-4.0); HEMATOCRIT 34.5 % (35.0-46.0); HEMOGLOBIN 11.4 GM/DL (11.6-15.3); LYMPH % 12.2 % (9.0-44.0); LYMPHOCYTE # 0.8 TH/MM3 (1.0-4.8); MEAN CELL VOLUME 88.7 FL (80.0-100.0); MEAN CORPUSCULAR HEMOGLOBIN 29.5 PG (27.0-34.0); MEAN CORPUSCULAR HGB CONC 33.2 % (32.0-36.0); MEAN PLATELET VOLUME 7.8 FL (7.0-11.0); MONO % 14.8 % (0.0-8.0); NEUT % 70.2 % (16.0-70.0); PLATELET COUNT 235 TH/MM3 (150-450); RED BLOOD COUNT 3.89 MIL/MM3 (4.00-5.30); RED CELL DISTRIBUTION WIDTH 12.9 % (11.6-17.2); WHITE BLOOD COUNT 6.5 TH/MM3 (4.0-11.0)
--- NOTE | 2017-10-28 12:39 | HHI.PR ---
Subjective Remarks Mrs. Álvarez is feeling better today compared to yesterday. Her sodium count has trended slightly upward to 128. Potassium level is low. CHF exacerbation respiratory distress from CHF exacerbation of prohibiting use of IV fluids and assistance in correcting her hyponatremia. Thus far diuresis is working. I feel, however, this patient may have a sodium deficit. She recalls one previous time where she had problems with hyponatremia. Objective Vital Signs Date Time Temp Pulse Resp B/P (MAP) Pulse Ox O2 Delivery O2 Flow Rate FiO2 10/28/17 12:00 74 10/28/17 11:51 98.6 80 18 136/71 (92) 99 10/28/17 11:00 74 10/28/17 10:06 94 Nasal Cannula 5.00 10/28/17 10:00 78 10/28/17 09:37 98 BiPAP 10/28/17 09:37 98 30 10/28/17 09:00 100 10/28/17 08:05 97.8 64 20 153/73 (99) 96 10/28/17 08:00 70 10/28/17 07:00 72 10/28/17 06:00 70 10/28/17 05:00 78 10/28/17 04:25 96 30 10/28/17 04:00 97.0 74 18 152/61 (91) 97 10/28/17 04:00 79 10/28/17 03:00 76 10/28/17 02:31 98 30 10/28/17 02:00 74 10/28/17 01:30 145/67 (93) 10/28/17 01:01 72 10/28/17 01:01 98.4 73 22 159/83 (108) 94 10/28/17 00:31 95 30 10/28/17 00:06 79 18 160/68 (98) 100 BiPAP 10/27/17 21:53 97 97 CPAP 10/27/17 21:50 97 BiPAP 30 10/27/17 21:50 97 30 10/27/17 21:40 98.2 119 20 211/99 (136) 96 I/O 10/27/17 10/27/17 10/27/17 10/28/17 10/28/17 10/28/17 07:00 15:00 23:00 07:00 15:00 23:00 Intake Total 60 ml Balance 60 ml Intake Oral 60 ml # Voids 3 # Bowel Movements 0 Result Diagram: 10/28/17 0911 10/28/17 0911 Objective Remarks GENERAL: NAD, A&Ox3 HEAD: Normocephalic. NECK: Supple, trachea midline. No lymphadenopathy. EYES: No scleral icterus. No injection or drainage. CARDIOVASCULAR: Regular rate and rhythm without murmurs, gallops, or rubs. RESPIRATORY: Breath sounds equal bilaterally. No accessory muscle use. GASTROINTESTINAL: Abdomen soft, non-tender, nondistended. MUSCULOSKELETAL: No cyanosis, or edema. SKIN: Warm and dry. NEURO: No focal neurological deficitis. A/P Problem List: (1) Acute hyponatremia ICD Code: E87.1 - Hypo-osmolality and hyponatremia Status: Acute (2) CHF exacerbation ICD Code: I50.9 - Heart failure, unspecified Status: Acute (3) Respiratory distress ICD Code: R06.03 - Acute respiratory distress Status: Acute Assessment and Plan 87-year-old female admitted secondary to CHF exacerbation with respiratory distress and hyponatremia CHF exacerbation Improving through time Continue diuresis Baseline EF is 25-30% Acute respiratory failure Wean off BiPAP for now Continue monitoring oxygen levels Supplemental oxygen as needed Treat fluid overload Hyponatremia Possible sodium deficit Strict avoidance of salt and any degree of salt wasting could be contributory Continue diuresis Include salt in diet Provide 0.5 g sodium supplement daily for now She should probably not exclude all salt from her diet Hypertension Continue baseline treatment Follow blood pressures Adjust treatments as needed Diabetes mellitus type 2 Follow blood sugars Insulin sliding scale Diabetic diet DVT prophylaxis Heparin Problem Qualifiers (1) CHF exacerbation: Qualified Codes: I50.9 - Heart failure, unspecified Gold Kaminski MD Oct 28, 2017 12:39
[2017-10-28] MEDS ORDERED: SODIUM CHLORIDE 1 GRAM TAB PO ONE (12:45)
[2017-10-28] MEDS ORDERED: POTASSIUM CHLORIDE 10 MEQ CONTROLLED RELEASE TAB PO ONE (12:45)
--- NOTE | 2017-10-28 14:01 | EKG ---
Date Performed: 10/27/2017 Time Performed: 22:14:36 PTAGE: 87 years EKG: ATRIAL FIBRILLATION MODERATE ST DEPRESSION ABNORMAL ECG PREVIOUS TRACING : 07/14/2016 12.35 Since the previous tracing, no significant change noted DOCTOR: Osiel Laurent Interpretating Date/Time 10/28/2017 13:55:18
[2017-10-28] MEDS ORDERED: ALPRAZolam 0.25 MG TAB PO PRN (18:15)
[2017-10-28] MEDS ORDERED: ALPRAZolam 0.5 MG TAB PO PRN (18:15)
[2017-10-28] MEDS: RESP: ALBUTEROL 2.5 MG/IPRATROPIUM 0.5 MG NEB (PRN) NEB (19:46)
[2017-10-28] MEDS: APIXABAN 2.5 MG TABLET PO SCH (20:24)
[2017-10-29] VITALS (29 sets, daily range): BP systolic 127–154; BP diastolic 54–69; PULSE 57–82; RESP 18–24; TEMP 97.7–97.9; O2SAT 95–98
[2017-10-29] MEDS: RESP: ALBUTEROL 2.5 MG/IPRATROPIUM 0.5 MG NEB (PRN) NEB (00:09)
[2017-10-29 07:24] LABS: BASOPHIL % 0.3 % (0.0-2.0); EOSINOPHIL # 0.1 TH/MM3 (0-0.4); EOSINOPHIL % 0.8 % (0.0-4.0); HEMATOCRIT 30.7 % (35.0-46.0); HEMOGLOBIN 10.4 GM/DL (11.6-15.3); LYMPH % 15.4 % (9.0-44.0); LYMPHOCYTE # 1.1 TH/MM3 (1.0-4.8); MEAN CELL VOLUME 88.6 FL (80.0-100.0); MEAN CORPUSCULAR HEMOGLOBIN 30.1 PG (27.0-34.0); MONO % 16.3 % (0.0-8.0); MONOCYTE # 1.2 TH/MM3 (0-0.9); NEUT % 67.2 % (16.0-70.0); PLATELET COUNT 231 TH/MM3 (150-450); RED BLOOD COUNT 3.47 MIL/MM3 (4.00-5.30); RED CELL DISTRIBUTION WIDTH 12.9 % (11.6-17.2); WHITE BLOOD COUNT 7.5 TH/MM3 (4.0-11.0)
[2017-10-29] MEDS: INSULIN ASPART SUPPLEMENTAL SCALE SQ SCH ×4 (08:00→20:34)
[2017-10-29] MEDS: SODIUM CHLORIDE 0.9% FLUSH 10 ML FLUSH IV FLUSH SCH ×2 (08:43→20:22)
[2017-10-29] MEDS: CLOPIDOGREL 75 MG TAB PO SCH (08:43)
[2017-10-29] MEDS: FUROSEMIDE 40 MG TAB PO SCH (08:43)
[2017-10-29] MEDS: MULTIVITAMIN TAB PO SCH (08:43)
[2017-10-29] MEDS: CARVEDILOL 6.25 MG TAB PO SCH ×2 (08:43→20:22)
[2017-10-29] MEDS: APIXABAN 2.5 MG TABLET PO SCH ×2 (08:43→20:21)
[2017-10-29] MEDS: SODIUM CHLORIDE 1 GRAM TAB PO SCH (08:43)
[2017-10-29] MEDS: DOCUSATE SODIUM 50 MG/SENNA 8.6 MG TAB PO SCH ×2 (08:43→20:21)
[2017-10-29 14:57] LABS: ALBUMIN 2.8 GM/DL (3.4-5.0); ALKALINE PHOSPHATASE 76 U/L (45-117); ALT (GPT) 18 U/L (10-53); AST (GOT) 15 U/L (15-37); BICARBONATE 31.2 MEQ/L (21.0-32.0); BLOOD UREA NITROGEN 16 MG/DL (7-18); CHLORIDE 91 MEQ/L (98-107); GLOMERULAR FILTRATION RATE 68 ML/MIN (>89); GLUCOSE,RANDOM 132 MG/DL (74-106); SODIUM (NA) 129 MEQ/L (136-145); TOTAL BILIRUBIN ADULT 0.4 MG/DL (0.2-1.0); TOTAL PROTEIN 6.9 GM/DL (6.4-8.2)
--- NOTE | 2017-10-29 15:35 | HHI.PR ---
Subjective Remarks Patient reports she had a good day yesterday but required bipap overnight. States she is feeling better this morning. Discussed with patient's daughter at bedside. Objective Vitals Vital Signs Date Time Temp Pulse Resp B/P (MAP) Pulse Ox O2 Delivery O2 Flow Rate FiO2 10/29/17 12:01 71 10/29/17 12:01 97.9 68 18 143/66 (91) 95 10/29/17 12:01 95 Nasal Cannula 3.00 10/29/17 11:00 57 10/29/17 10:00 64 10/29/17 09:01 97.8 80 18 141/65 (90) 98 10/29/17 09:01 Nasal Cannula 3.00 10/29/17 09:00 74 10/29/17 08:00 78 10/29/17 07:50 96 Nasal Cannula 4.00 10/29/17 07:00 68 10/29/17 06:00 76 10/29/17 05:00 72 10/29/17 04:00 72 10/29/17 03:44 96 Nasal Cannula 4.00 10/29/17 03:40 97 Nasal Cannula 4.00 10/29/17 03:40 74 24 127/54 (78) 95 10/29/17 03:00 75 10/29/17 02:00 74 10/29/17 01:00 76 10/29/17 00:00 74 10/28/17 23:27 96 35 10/28/17 23:00 73 10/28/17 23:00 88 24 139/67 (91) 95 10/28/17 23:00 94 Bi-Pap 35 10/28/17 22:00 72 10/28/17 21:00 82 10/28/17 20:00 90 10/28/17 19:46 97 Nasal Cannula 4.00 10/28/17 19:00 97 Nasal Cannula 4.00 10/28/17 19:00 98.1 85 24 153/74 (100) 99 10/28/17 19:00 89 10/28/17 18:00 92 10/28/17 17:00 95 10/28/17 16:40 98.4 68 16 158/74 (102) 99 10/28/17 16:00 78 I/O 10/28/17 10/28/17 10/28/17 10/29/1710/29/18 6/18/18 07:00 15:00 23:00 07:00 15:00 23:00 Intake Total 60 ml 720 ml 240 ml Output Total 1050 ml 400 ml Balance 60 ml -330 ml -160 ml Intake Oral 60 ml 720 ml 240 ml Output Urine Total 1050 ml 400 ml # Voids 3 # Bowel Movements 0 0 Result Diagram: 10/29/17 0445 10/29/17 1350 Objective Remarks GENERAL: Elderly female. Appear frail but no acute distress. CARDIOVASCULAR: Normal rate and irregular rhythm without murmurs, gallops, or rubs. RESPIRATORY: Air movement is fair. Diminished breath sounds at the bases. Faint rhonchi at the bases. GASTROINTESTINAL: Abdomen soft, non-tender, non-distended. Normal active bowel sounds MUSCULOSKELETAL: Extremities without cyanosis, or edema. NEURO: Alert & Oriented x4 to person, place, time, situation. Moves all ext x4 PSYCH: Appropriate mood and affect. A/P Problem List: (1) CHF (congestive heart failure) ICD Code: I50.9 - Heart failure, unspecified (2) Acute respiratory failure ICD Code: J96.00 - Acute respiratory failure, unspecified whether with hypoxia or hypercapnia (3) Hyponatremia ICD Code: E87.1 - Hypo-osmolality and hyponatremia (4) HTN (hypertension) ICD Code: I10 - Essential (primary) hypertension (5) DM (diabetes mellitus) ICD Code: E11.9 - Type 2 diabetes mellitus without complications Assessment and Plan 87-year-old female admitted secondary to CHF exacerbation with respiratory distress and hyponatremia CHF exacerbation Improving through time Continue oral diuresis Baseline EF is 25-30% Acute respiratory failure: Secondary to CHF but she also has COPD and imaging concerning for pulmonary fibrosis. Acute CHF symptoms seems to be resolving, I do not see further evidence of fluid overload. Patient required BiPAP overnight. We will consult pulmonology for assistance and start prednisone 20 mg twice daily. Continue monitoring oxygen levels Supplemental oxygen as needed She will likely need home oxygen. She states she tried to use somebody else's oxygen concentrator in her condo after it was given to her but she does not believe it has been working for her Hyponatremia Possible sodium deficit Strict avoidance of salt and any degree of salt wasting could be contributory Continue diuresis Include salt in diet Provide 0.5 g sodium supplement daily for now She should probably not exclude all salt from her diet Improving, continue to monitor. Hypertension Continue baseline treatment Follow blood pressures Adjust treatments as needed Diabetes mellitus type 2 Follow blood sugars Insulin sliding scale Diabetic diet DVT prophylaxis Heparin Discharge Planning Need improvement in respiratory status. PT to evaluate. May need SNF placement. Will at least need home health and probably home oxygen. Catracho Pryor MD Oct 29, 2017 15:35
[2017-10-29] MEDS ORDERED: GLUCAGON 1 MG/ML VIAL OTHER PRN (15:45)
[2017-10-29] MEDS ORDERED: DEXTROSE 50% IN WATER 50 ML VIAL(D50) IV PUSH PRN (15:45)
[2017-10-29] MEDS ORDERED: predniSONE 20 MG TAB PO SCH (15:45)
[2017-10-29] MEDS ORDERED: metFORMIN HCL 500 MG TAB PO SCH (18:00)
--- NOTE | 2017-10-29 21:17 | MB ---
cc: Fabian Noel MD DATE: 10/29/2017 HISTORY OF PRESENT ILLNESS: Ms. Álvarez is an 87-year-old white female with a history of systolic heart failure, ejection fraction in April 2016 was about 30%, history of hypertension, peripheral arterial disease and diabetes. She presented with increasing shortness of breath and initial chest x-ray revealed cardiomegaly and probable CHF. She was also hyponatremic. She has been diuresed and feels better. She said on presentation, her feet were swollen and they have come down. She was diagnosed with COPD about 10 years ago, at which time, she stopped smoking. She has a 50-60 pack year history, but has not required any specific therapy for this since she quit smoking. She does not have frequent bronchitis. The last time she had pneumonia was about 6 years ago, and she has not required any chronic treatment for shortness of breath. However, on this admission, she had been progressively more short of breath with increasing edema and again appeared to present primarily with CHF. She has had no chest pain or purulent sputum. No history of thromboembolic disease. PAST MEDICAL HISTORY: CHF, hypertension, diabetes, peripheral arterial disease, COPD, previous hysterectomy, thyroidectomy, angioplasty of the left lower extremity for PAD. ALLERGIES: INTRAVENOUS CONTRAST, SULFA AND PENICILLIN. CURRENT MEDICATIONS: Reviewed in the EMR. SOCIAL HISTORY: Prior smoker. Denies alcohol, other than an occasional glass of wine. REVIEW OF SYSTEMS: As noted above. PHYSICAL EXAMINATION: GENERAL: Elderly white female in no distress. VITAL SIGNS: Temperature 97 degrees, blood pressure 130/60, respirations 18, pulse 78, O2 saturation on 5 liters is 97%. HEENT: Sclerae are anicteric. Mucous membranes are moist. NECK: Veins are not distended. PULMONARY: She has some very minimal moist rales posteriorly, otherwise no Velcro rales. No wheezing. HEART: Regular rhythm. Soft systolic murmur. No audible S3. ABDOMEN: Soft, a little distended with gas. Nontender. EXTREMITIES: No peripheral edema of significance and no calf tenderness. LABORATORY DATA: White count 7500. Arterial blood gas initially on the 16 on BiPAP, pO2 71, pH 7.4, pCO2 of 49. Sodium was 123 on admission, it is up to 129. DISCUSSION AND PLAN: Ms. Álvarez presented in what I believe was CHF and probably does have underlying COPD to some extent based on her prior smoking history. However, she has responded well just to treatment primarily for her underlying heart failure. She is diuresed. Edema has improved and she is feeling better now on a nasal cannula. Question arose as to whether or not she has pulmonary fibrosis. I think that is unlikely. Chest x-rays certainly can look similar, but a followup film in 4-6 weeks would be appropriate to be sure that the interstitial changes she has now is resolved. No acute treatment would be necessary for that at this point. Whether she needs followup therapy for COPD would depend on pulmonary functions and I would not suggest doing those now since they will be abnormal in her current state of health, that could be followed up as an outpatient. In light of the underlying heart disease, I would continue the aerosol treatments just on a p.r.n. basis and again gradually reduce her oxygen. She has been placed on oral prednisone. I have dropped that from 40 to 20 a day and I think that could be tapered rapidly. R. MD ALEJANDRA Lance/MATHEW , 06:02 PM , 09:15 PM
[2017-10-30] VITALS (30 sets, daily range): BP systolic 115–152; BP diastolic 48–72; PULSE 65–92; RESP 14–20; TEMP 97.2–98.3; O2SAT 92–100
--- NOTE | 2017-10-30 06:12 | RADRPT ---
EXAM DATE: 10/30/2017 5:58 AM EDT AGE/SEX: 87 years / Female INDICATIONS: Short of breath, cough. CLINICAL DATA: This is the patient's subsequent encounter. Patient reports that signs and symptoms h ave been present for 4 - 6 days and indicates a pain score of 0/10. MEDICAL/SURGICAL HISTORY: Chronic obstructive pulmonary disease. Congestive heart failure. Hy pertension. None. [place] [facility] [place]. . FINDINGS: Single view the chest is stable. Persistent consolidation in both lung bases right greater than left. Bilateral pleural effusions right greater than left. No visible pneumothorax. Dense atherosclerotic disease. CONCLUSION: Patchy infiltrates right greater than left with bilateral pleural effusions Electronically signed by: Jose Johnson MD 10/30/2017 6:11 AM EDT
[2017-10-30 06:19] LABS: BICARBONATE 30.9 MEQ/L (21.0-32.0); CALCIUM 8.9 MG/DL (8.5-10.1)
[2017-10-30 06:26] LABS: CREATININE 0.77 MG/DL (0.50-1.00)
[2017-10-30] MEDS: INSULIN ASPART SUPPLEMENTAL SCALE SQ SCH ×4 (08:00→21:37)
[2017-10-30] MEDS: CLOPIDOGREL 75 MG TAB PO SCH (08:16)
[2017-10-30] MEDS: MULTIVITAMIN TAB PO SCH (08:16)
[2017-10-30] MEDS: APIXABAN 2.5 MG TABLET PO SCH ×2 (08:16→21:37)
[2017-10-30] MEDS: CARVEDILOL 6.25 MG TAB PO SCH ×2 (08:16→21:37)
[2017-10-30] MEDS: predniSONE 20 MG TAB PO SCH (08:16)
[2017-10-30] MEDS: FUROSEMIDE 40 MG TAB PO SCH (08:16)
[2017-10-30] MEDS: SODIUM CHLORIDE 0.9% FLUSH 10 ML FLUSH IV FLUSH SCH ×2 (08:17→21:37)
[2017-10-30] MEDS: DOCUSATE SODIUM 50 MG/SENNA 8.6 MG TAB PO SCH ×2 (08:21→21:00)
[2017-10-30] MEDS: SODIUM CHLORIDE 1 GRAM TAB PO SCH (09:01)
[2017-10-30] MEDS ORDERED: METOLAZONE 5 MG TAB PO ONE (15:15)
--- NOTE | 2017-10-30 15:44 | HHI.PR ---
Subjective Remarks Patient reports she is feeling weak today. Breathing status is stable. We discussed rehab placement prior to returning home. She is agreeable to that. Physical therapy to evaluate. Objective Vitals Vital Signs Date Time Temp Pulse Resp B/P (MAP) Pulse Ox O2 Delivery O2 Flow Rate FiO2 10/30/17 14:00 73 10/30/17 13:00 70 10/30/17 12:59 95 Nasal Cannula 2.00 10/30/17 12:59 97.7 78 18 123/56 (78) 96 10/30/17 12:20 Nasal Cannula 4.00 10/30/17 12:00 65 10/30/17 11:00 83 10/30/17 10:00 66 10/30/17 09:06 95 Nasal Cannula 4.00 10/30/17 09:06 97.2 80 20 144/58 (86) 99 10/30/17 09:00 74 10/30/17 08:00 70 10/30/17 07:57 100 40 10/30/17 07:56 100 BiPAP 40 10/30/17 07:00 70 10/30/17 06:00 72 10/30/17 05:38 100 45 10/30/17 05:00 79 10/30/17 04:06 98 Bi-Pap 55 10/30/17 04:05 77 10/30/17 04:00 98.3 73 19 115/48 (70) 98 10/30/17 03:00 73 10/30/17 02:48 97 BiPAP 55 10/30/17 02:48 97 55 10/30/17 02:00 73 10/30/17 01:00 79 10/30/17 01:00 97.6 71 20 125/56 (79) 98 10/30/17 00:00 69 10/29/17 23:26 98 Bi-Pap 55 10/29/17 23:00 79 10/29/17 22:24 95 35 10/29/17 22:00 77 10/29/17 21:00 82 10/29/17 20:00 97.7 66 20 154/69 (97) 95 10/29/17 20:00 79 10/29/17 20:00 95 Nasal Cannula 5.00 10/29/17 19:00 66 10/29/17 18:00 82 10/29/17 17:00 78 10/29/17 16:07 78 I/O 10/29/17 10/29/17 10/29/17 10/30/17 10/30/17 10/30/17 06:59 14:59 22:59 06:59 14:59 22:59 Intake Total 240 ml 720 ml 240 ml Output Total 400 ml 800 ml 450 ml Balance -160 ml -80 ml -210 ml Intake Oral 240 ml 720 ml 240 ml Output Urine Total 400 ml 800 ml 450 ml # Voids 3 # Bowel Movements 0 1 2 Result Diagram: 10/29/17 0445 10/30/17 0439 Objective Remarks GENERAL: Elderly female. Appear frail but no acute distress. CARDIOVASCULAR: Normal rate and irregular rhythm without murmurs, gallops, or rubs. RESPIRATORY: Air movement is fair. Diminished breath sounds at the bases. Faint rhonchi at the bases. GASTROINTESTINAL: Abdomen soft, non-tender, non-distended. Normal active bowel sounds MUSCULOSKELETAL: Extremities without cyanosis, or edema. NEURO: Alert & Oriented x4 to person, place, time, situation. Moves all ext x4 PSYCH: Appropriate mood and affect. A/P Problem List: (1) CHF (congestive heart failure) ICD Code: I50.9 - Heart failure, unspecified (2) Acute respiratory failure ICD Code: J96.00 - Acute respiratory failure, unspecified whether with hypoxia or hypercapnia (3) Hyponatremia ICD Code: E87.1 - Hypo-osmolality and hyponatremia (4) HTN (hypertension) ICD Code: I10 - Essential (primary) hypertension (5) DM (diabetes mellitus) ICD Code: E11.9 - Type 2 diabetes mellitus without complications Assessment and Plan 87-year-old female admitted secondary to CHF exacerbation with respiratory distress and hyponatremia CHF exacerbation Improving through time Continue oral diuresis Baseline EF is 25-30% Seems to be stabilizing reaching her baseline. Acute respiratory failure: Secondary to CHF but she also has COPD and imaging concerning for pulmonary fibrosis. Acute CHF symptoms seems to be resolving, I do not see further evidence of fluid overload. Patient required BiPAP overnight. Appreciate pulmonology assistance. Continue to wean prednisone. Plan to decrease dose tomorrow. Continue monitoring oxygen levels Supplemental oxygen as needed She will likely need home oxygen. She states she tried to use somebody else's oxygen concentrator in her condo after it was given to her but she does not believe it has been working for her Hyponatremia Possible sodium deficit Strict avoidance of salt and any degree of salt wasting could be contributory Continue diuresis Include salt in diet Provide 0.5 g sodium supplement daily for now She should probably not exclude all salt from her diet Improving, continue to monitor. Hypertension Continue baseline treatment Follow blood pressures Adjust treatments as needed Diabetes mellitus type 2 Follow blood sugars Insulin sliding scale Diabetic diet DVT prophylaxis Heparin Discharge Planning Need SNF placement. Discussed with case management. Plan for discharge in the morning. Catracho Pryor MD Oct 30, 2017 15:44
[2017-10-31] VITALS (25 sets, daily range): BP systolic 108–167; BP diastolic 53–86; PULSE 57–93; RESP 16–22; TEMP 97.5–98.3; O2SAT 93–97
[2017-10-31] MEDS: INSULIN ASPART SUPPLEMENTAL SCALE SQ SCH ×4 (08:00→22:10)
[2017-10-31] MEDS: APIXABAN 2.5 MG TABLET PO SCH ×2 (08:19→22:09)
[2017-10-31] MEDS: predniSONE 20 MG TAB PO SCH (08:19)
[2017-10-31] MEDS: MULTIVITAMIN TAB PO SCH (08:19)
[2017-10-31] MEDS: CARVEDILOL 6.25 MG TAB PO SCH ×2 (08:19→22:10)
[2017-10-31] MEDS: FUROSEMIDE 40 MG TAB PO SCH (08:19)
[2017-10-31] MEDS: DOCUSATE SODIUM 50 MG/SENNA 8.6 MG TAB PO SCH ×2 (08:19→22:09)
[2017-10-31] MEDS: SODIUM CHLORIDE 1 GRAM TAB PO SCH (08:19)
[2017-10-31] MEDS: CLOPIDOGREL 75 MG TAB PO SCH (08:19)
[2017-10-31] MEDS: SODIUM CHLORIDE 0.9% FLUSH 10 ML FLUSH IV FLUSH SCH ×2 (08:20→22:10)
[2017-10-31] MEDS ORDERED: APIX2.5T PO (12:21)
[2017-10-31] MEDS ORDERED: LEVA750T9 PO (12:21)
--- NOTE | 2017-10-31 12:21 | HHI.DS ---
Discharge Summary Admission Date Oct 27, 2017 at 23:06 Discharge Date: Oct 31, 2017 Admitting Diagnosis acute respiratory failure, CHF exacerbation, Hyponatremia (1) CHF (congestive heart failure) ICD Code: I50.9 - Heart failure, unspecified (2) Acute respiratory failure ICD Code: J96.00 - Acute respiratory failure, unspecified whether with hypoxia or hypercapnia (3) Hyponatremia ICD Code: E87.1 - Hypo-osmolality and hyponatremia (4) HTN (hypertension) ICD Code: I10 - Essential (primary) hypertension (5) DM (diabetes mellitus) ICD Code: E11.9 - Type 2 diabetes mellitus without complications Procedures None Brief History - From Admission HPI from the admitting physician. This is an 87-year-old female with a PMH of HTN, Hyperlipidemia, CAD, CHF (Echo 05/05/2016 w/ EF 25-30%) and DM who was brought to the ER by EMS due to SOB. Found to have O2 sat 85% on RA, s/p Lasix 40mg IV and NTG by EMS in addition to DuoNeb w/ some improvement, however significant SOB and placed on BIPAP. Denies fever, chills or chest pain. States she follows w/ Dr. Ugalde and has follow up appointment scheduled for Sunday. On arrival, BP 211/99, HR 119, O2 sat 96% on BiPAP, FiO2 30%, Afebrile. CBC unremarkable. Na 123. GFR 78. Troponin negative. BNP 435. INR 1.0. CXR with basilar airspace disease likely pulmonary fibrosis. On exam, pt w/ 2+ edema. CBC/BMP: 10/29/17 0445 10/30/17 0439 Significant Findings Laboratory Tests Test 10/29/17 04:45 10/29/17 13:50 10/30/17 04:39 Red Blood Count 3.47 MIL/MM3 (4.00-5.30) Hemoglobin 10.4 GM/DL (11.6-15.3) Hematocrit 30.7 % (35.0-46.0) Monocytes (%) (Auto) 16.3 % (0.0-8.0) Monocytes # (Auto) 1.2 TH/MM3 (0-0.9) Random Glucose 132 MG/DL (74-106) 148 MG/DL (74-106) Albumin 2.8 GM/DL (3.4-5.0) Sodium Level 129 MEQ/L (136-145) 132 MEQ/L (136-145) Chloride Level 91 MEQ/L (98-107) 92 MEQ/L (98-107) Estimat Glomerular Filtration Rate 68 ML/MIN (>89) 71 ML/MIN (>89) Blood Urea Nitrogen 19 MG/DL (7-18) Imaging Last Impressions Chest X-Ray 10/30/17 0600 Signed Impressions: CONCLUSION: Patchy infiltrates right greater than left with bilateral pleural effusions PE at Discharge GENERAL: Elderly female. Appear frail but no acute distress. CARDIOVASCULAR: Normal rate and irregular rhythm without murmurs, gallops, or rubs. RESPIRATORY: Air movement is fair. Diminished breath sounds at the bases. Faint rhonchi at the bases. GASTROINTESTINAL: Abdomen soft, non-tender, non-distended. Normal active bowel sounds MUSCULOSKELETAL: Extremities without cyanosis, or edema. NEURO: Alert & Oriented x4 to person, place, time, situation. Moves all ext x4 PSYCH: Appropriate mood and affect. Pt update on day of discharge Patient reports she is feeling okay from a respiratory standpoint. Feels very weak. Agreeable to SNF placement for rehabilitation. Hospital Course 87-year-old female admitted secondary to CHF exacerbation with respiratory distress and hyponatremia. Evaluation and treatment course detailed below: CHF exacerbation Improving through time Continue oral diuresis Baseline EF is 25-30% Seems to be stabilizing reaching her baseline. Acute respiratory failure: Secondary to CHF but she also has COPD. Acute CHF symptoms seems to be resolving Patient did require BiPAP at night earlier in the hospitalization. Pulmonology followed the patient. CHF believed to be more contributing to her respiratory symptoms Supplemental oxygen . This can be weaned off at the rehab facility. Concern for pneumonia based on last chest x-ray. Symptoms improving. Short course of Levaquin ordered. Debility: Secondary to above comorbid conditions. Physical therapy followed the patient. She is discharged to SNF to continue rehabilitation. Hyponatremia Possible sodium deficit Strict avoidance of salt and any degree of salt wasting could be contributory Continue diuresis Include salt in diet Provide 0.5 g sodium supplement daily for now She should probably not exclude all salt from her diet Hypertension Continue baseline treatment Diabetes mellitus type 2 Follow blood sugars Insulin sliding scale Diabetic diet Pt Condition on Discharge: Good Discharge Disposition: Discharge to SNF Discharge Time: > 30 minutes Discharge Instructions DIET: Follow Instructions for: Diabetic Diet Activities you can perform: Regular-No Restrictions Follow up Referrals: Cardiology PCP Follow-up New Medications: Levofloxacin (Levaquin) 750 Mg Tablet 750 MG PO DAILY for Infection, #5 TAB 0 Refills Apixaban (Eliquis) 2.5 Mg Tab 2.5 MG PO BID, #60 TAB Sodium Chloride (Sodium Chloride) 1 Gram Tab 0.5 GM PO DAILY, #30 TAB Continued Medications: B Complex W/ C (Vitamin B Complex-C) 1 Cap Cap 1 CAP PO DAILY Carvedilol (Coreg) 6.25 Mg Tab 6.25 MG PO Q12HR for CHF, #60 TAB Clopidogrel (Plavix) 75 Mg Tab 75 MG PO DAILY for Blood Clot Prevention, #30 TAB 0 Refills Furosemide (Lasix) 40 Mg Tab 40 MG PO BID@,18 for CHF, #60 TAB (This prescription has been renewed) Losartan (Losartan) 25 Mg Tab 25 MG PO HS for Blood Pressure Management, #30 TAB 0 Refills Metformin (Metformin) 1,000 Mg Tab 1000 MG PO BIDPC for Blood Sugar Management, #60 TAB 0 Refills With meals Multiple Vitamin (Multi Vitamin Daily) 1 Tab Tab 1 TAB PO DAILY Britt-3 Fatty Acids (Fish Oil) 500 Mg Cap 500 MG PO NOON TIME Discontinued Medications: Magnesium Oxide (Magnesium Oxide) 400 Mg Tab 400 MG PO NOON TIME for Nutritional Supplement, TAB 0 Refills Catracho Pryor MD Oct 31, 2017 12:21
[2017-10-31] MEDS ORDERED: FURO1TAB60 PO (16:35)
[2017-10-31] MEDS ORDERED: SODI1TAB PO (16:35)
[2017-11-01] VITALS (16 sets, daily range): BP systolic 124–154; BP diastolic 61–78; PULSE 71–92; RESP 16–18; TEMP 98–98.7; O2SAT 92–97
[2017-11-01] MEDS: MULTIVITAMIN TAB PO SCH (09:48)
[2017-11-01] MEDS: APIXABAN 2.5 MG TABLET PO SCH (09:48)
[2017-11-01] MEDS: SODIUM CHLORIDE 1 GRAM TAB PO SCH (09:48)
[2017-11-01] MEDS: FUROSEMIDE 40 MG TAB PO SCH (09:48)
[2017-11-01] MEDS: predniSONE 20 MG TAB PO SCH (09:49)
[2017-11-01] MEDS: CLOPIDOGREL 75 MG TAB PO SCH (09:49)
[2017-11-01] MEDS: DOCUSATE SODIUM 50 MG/SENNA 8.6 MG TAB PO SCH (09:51)
[2017-11-01] MEDS: SODIUM CHLORIDE 0.9% FLUSH 10 ML FLUSH IV FLUSH SCH (09:51)
[2017-11-01] MEDS: CARVEDILOL 6.25 MG TAB PO SCH (09:51)
[2017-11-01] MEDS: INSULIN ASPART SUPPLEMENTAL SCALE SQ SCH ×3 (09:52→17:46)
--- NOTE | 2017-11-01 13:19 | HHI.PR ---
Subjective Remarks Patient discharged yesterday. Awaiting insurance authorization. States she is feeling ok except for weakness. Objective Vitals Vital Signs Date Time Temp Pulse Resp B/P (MAP) Pulse Ox O2 Delivery O2 Flow Rate FiO2 11/01/17 13:00 80 11/01/17 12:00 92 11/01/17 11:00 98.4 83 18 124/61 (82) 94 11/01/17 11:00 83 11/01/17 11:00 94 Nasal Cannula 1.50 11/01/17 10:00 72 11/01/17 09:00 84 11/01/17 08:00 95 Nasal Cannula 1.50 11/01/17 08:00 78 11/01/17 08:00 98.7 78 16 134/70 (91) 95 11/01/17 07:00 78 11/01/17 06:00 76 11/01/17 05:00 72 11/01/17 05:00 72 16 92 11/01/17 04:05 80 11/01/17 03:01 Nasal Cannula 1.50 30 11/01/17 01:06 97 Nasal Cannula 2.00 11/01/17 00:00 79 11/01/17 00:00 71 18 96 10/31/17 23:00 Nasal Cannula 1.50 30 10/31/17 21:00 97.5 85 16 166/74 (104) 93 10/31/17 20:18 77 10/31/17 19:50 Nasal Cannula 1.50 30 10/31/17 18:00 74 10/31/17 17:00 84 10/31/17 16:00 86 10/31/17 15:10 96 Nasal Cannula 1.50 10/31/17 15:10 97.9 76 20 167/86 (113) 96 10/31/17 15:00 93 10/31/17 14:00 82 I/O 10/31/17 10/31/17 10/31/17 11/01/17 11/01/17 11/01/17 07:00 15:00 23:00 07:00 15:00 23:00 Intake Total 240 ml 720 ml 240 ml Output Total 850 ml 1200 ml 400 ml Balance -610 ml -480 ml -160 ml Intake Oral 240 ml 720 ml 240 ml Output Urine Total 850 ml 1200 ml 400 ml # Voids 4 # Bowel Movements 2 1 1 Result Diagram: 6/18/18 0445 10/30/17 0439 Objective Remarks GENERAL: Elderly female. Appear frail but no acute distress. CARDIOVASCULAR: Normal rate and irregular rhythm without murmurs, gallops, or rubs. RESPIRATORY: Air movement is fair. Diminished breath sounds at the bases. GASTROINTESTINAL: Abdomen soft, non-tender, non-distended. Normal active bowel sounds MUSCULOSKELETAL: Extremities without cyanosis, or edema. NEURO: Alert & Oriented x4 to person, place, time, situation. Moves all ext x4 PSYCH: Appropriate mood and affect. Procedures None A/P Problem List: (1) CHF (congestive heart failure) ICD Code: I50.9 - Heart failure, unspecified (2) Acute respiratory failure ICD Code: J96.00 - Acute respiratory failure, unspecified whether with hypoxia or hypercapnia (3) Hyponatremia ICD Code: E87.1 - Hypo-osmolality and hyponatremia (4) HTN (hypertension) ICD Code: I10 - Essential (primary) hypertension (5) DM (diabetes mellitus) ICD Code: E11.9 - Type 2 diabetes mellitus without complications Assessment and Plan 87-year-old female admitted secondary to CHF exacerbation with respiratory distress and hyponatremia CHF exacerbation Much improved Continue oral diuresis Baseline EF is 25-30% Stabilizing reaching her baseline. Acute respiratory failure: Secondary to CHF but she also has COPD. Acute CHF symptoms seems to be resolving Patient did require BiPAP at night earlier in the hospitalization. Pulmonology followed the patient. CHF believed to be more contributing to her respiratory symptoms Supplemental oxygen . This can be weaned off at the rehab facility. Concern for pneumonia based on last chest x-ray. Symptoms improving. Short course of Levaquin ordered. Debility: Secondary to above comorbid conditions. Physical therapy followed the patient. She is discharged to SNF to continue rehabilitation. Hyponatremia Possible sodium deficit Strict avoidance of salt and any degree of salt wasting could be contributory Continue diuresis Include salt in diet Provide 0.5 g sodium supplement daily for now She should probably not exclude all salt from her diet Hypertension Continue baseline treatment Diabetes mellitus type 2 Follow blood sugars Insulin sliding scale Diabetic diet Discharge Planning Need SNF placement. Patient discharged, awaiting authorization. Catracho Pryor MD Nov 01, 2017 13:19
== END 2017-11-01 17:47 | DRG 291 ==
LOC: NEPC 21:39 → NEDA 23:06 → HCIS 10-28 00:54
PROVIDERS: ADMIT Hospitalist; ATTEND Hospitalist
DX: I11.0 Hypertensive heart disease with heart failure (principal); J96.01 Acute respiratory failure with hypoxia; E87.1 Hypo-osmolality and hyponatremia; I50.23 Acute on chronic systolic (congestive) heart failure; E11.51 Type 2 diabetes mellitus with diabetic peripheral angiopathy without gangrene; I48.2 Chronic atrial fibrillation; J44.9 Chronic obstructive pulmonary disease, unspecified; I25.10 Atherosclerotic heart disease of native coronary artery without angina pectoris; Z88.0 Allergy status to penicillin; Z88.2 Allergy status to sulfonamides; Z88.8 Allergy status to other drugs, medicaments and biological substances; Z91.041 Radiographic dye allergy status; Z87.891 Personal history of nicotine dependence
CPT/HCPCS: 36600; 71045; 80048; 80053; 82550; 82805; 82948; 83735; 83880; 84484; 85025; 85610; 85730; 93005; 94002; 94003; 94640; 94664; J1644; J1815; J1940; J7512

== ENCOUNTER 2018-02-04 22:12 | Inpatient (IN) ==
--- NOTE | 2018-02-04 22:24 | ED ---
HPI General Chief Complaint: Shortness of Breath/Dyspnea Stated Complaint: SOB Time Seen by Provider: 02/04/18 22:17 Source: patient and EMS History of Present Illness The patient is an 87-year-old female with a history of hypertension, hyperlipidemia, coronary artery disease, CHF with an EF in 2016 of 25-30% diabetes mellitus and COPD that was brought in from home progressively worsening dyspnea that started about 4 hours ago. Patient denies any fever or chills. Denies productive cough. Has no breathing treatments at home and was actually scheduled to see a new head of ethics and compliance tomorrow. She stated that she was scheduled to have a CT of her chest. MD Complaint: shortness of breath and cough Onset (ago): hour(s) (4) Severity: severe Relieving factors: nothing Known history of: COPD, congestive heart failure and diabetes Associated symptoms: cough, wheezing, orthopnea and other (Worsening pitting edema bilateral legs) Treatment prior to arrival: oxygen, bronchodilator and other (Solumedrol 125mg IV by EMS) Related Data Home oxygen amount: 2 liters Home Medications Medication Instructions Recorded Confirmed calcium carbonate-vitamin D3 500 mg PO DAILY 02/04/18 02/04/18 [Calcium 500 + D] carvedilol [Coreg] 6.25 mg PO BID 02/04/18 02/04/18 clopidogrel [Plavix] 75 mg PO DAILY 02/04/18 02/04/18 furosemide [Lasix] 40 mg PO BID 02/04/18 02/04/18 losartan 25 mg PO DAILY 02/04/18 02/04/18 magnesium oxide 500 mg PO DAILY 02/04/18 02/04/18 metformin 1,000 mg PO DAILY 02/04/18 02/04/18 metformin 500 mg PO HS 02/04/18 02/04/18 omega 2-lou-jhy-fish oil [Fish Oil] 1,000 mg PO DAILY 02/04/18 02/04/18 Allergies Allergy/AdvReac Type Severity Reaction Status Date / Time diatrizoate meglumine Allergy Severe ITCHING,RED Verified 02/04/18 23:21 NESS,SOB gadobenic acid Allergy Severe ITCHING,RED Verified 02/04/18 23:21 NESS,SOB gadodiamide Allergy Severe ITCHING,RED Verified 02/04/18 23:21 NESS,SOB gadoteridol Allergy Severe ITCHING,RED Verified 02/04/18 23:21 NESS,SOB Iodinated Contrast- Oral and Allergy Severe HIVES Verified 02/04/18 23:21 IV Dye iodixanol Allergy Severe ITCHING,RED Verified 02/04/18 23:21 NESS,SOB iohexol Allergy Severe ITCHING,RED Verified 02/04/18 23:21 NESS,SOB penicillin G Allergy Severe SOB, RASH Verified 02/04/18 23:21 Sulfa (Sulfonamide Allergy Severe RASH Verified 02/04/18 23:21 Antibiotics) Review of Systems ROS: all other systems reviewed are negative PMFSH History History Provided By: Patient, Medical Record and Phytopathology Teacher / EMT Medical History Medical History Afib (Acute) CHF (congestive heart failure) (Acute) COPD (chronic obstructive pulmonary disease) (Acute) Diabetes (Acute) Hypertension (Acute) Social History Social History Substance History: No History of Abuse Second Hand Smoke Exposure: No Smoking Status: Never smoker How Often Do You Have a Drink Containing Alcohol: 2 to 4 times a month Recent Travel in [facility] within the Last 8 Weeks: No Recent Out of Country Travel within the Last 8 Weeks: No Exam Narrative Exam Narrative: GENERAL: Alert and oriented no distress SKIN: Focused skin assessment warm/dry. Poor turgor HEAD: Atraumatic. Normocephalic. EYES: Pupils equal and round. No scleral icterus. No injection or drainage. ENT: No nasal bleeding or discharge. Mucous membranes pink and moist. NECK: Trachea midline. No JVD. CARDIOVASCULAR: Irregularly irregular rate and normal rate. No murmur appreciated. RESPIRATORY: No accessory muscle use. Decreased breath sounds bilaterally. Inspiratory expiratory wheezes throughout. GASTROINTESTINAL: Abdomen soft, non-tender, nondistended. Hepatic and splenic margins not palpable. MUSCULOSKELETAL: No obvious deformities. No clubbing. No cyanosis. No edema. NEUROLOGICAL: Awake and alert. No obvious cranial nerve deficits. Motor grossly within normal limits. Normal speech. PSYCHIATRIC: Appropriate mood and affect; insight and judgment normal. Course Hospital Course: Patient severe COPD/CHF exacerbation and pneumonia seen on CT chest. She did have episodes of hypoxia on O2 saturations for which she was placed on BiPAP. She also had a labile blood pressure that was initially at some point redness to 45 systolic however retake was 160. We were going to start a Cardene drip but because of improvement of her blood pressure we stopped it however within a reevaluate and see if we need to put her back on the Cardene drip as per admitting physician request. Reevaluation(s) Reevaluation #1: Patient status post breathing treatments feeling better at this time. Time: 00:05 Reevaluation #2: Patient still wheezing however marked improvement from the presentation. We stopped the O2 cannula for a few seconds and she desats to the mid 80s. She is at 94% on 4 L. Time: 00:59 Reevaluation #3: Patient complaint of progressively worsening dyspnea. Her blood pressure is elevated 185/86 and O2 saturations 88% on [address] on BiPAP and give her some more nitroglycerin sublingual. We will also switch her admission from a floor with telemetry to stepdown due to the fact the patient is to be on BiPAP. Time: 02:04 Additional Reevaluation(s): Patient on Cardene drip. Repeat blood pressure 158/ 74. On BiPAP marked improvement Initial Documented Vital Signs Pulse Rate 71 02/04/18 22:17 Respiratory Rate 20 02/04/18 22:17 Blood Pressure 159/95 H 02/04/18 22:17 Pulse Oximetry 98 02/04/18 22:17 Last Documented Vital Signs Pulse Rate 83 02/05/18 03:24 Respiratory Rate 20 02/05/18 03:24 Blood Pressure 158/74 H 02/05/18 03:24 Pulse Oximetry 96 02/05/18 03:24 Critical Care Time Critical Care Time: Yes Total Critical Care Time: 30 Attestation: Aggregate critical care time was 30 minutes. Time to perform other separately billable procedures was not included in the critical care time. My time did not include minutes spent treating any other patients simultaneously or on activities that did not directly contribute to the patient's treatment. The services I provided to this patient were to treat and/or prevent clinically significant deterioration that could result in: Cardiopulmonary collapse I provided critical care services requiring my management, as noted below: Chart data review, documentation time, medication orders and management, vital sign assessments/reviewing monitor data, ordering and reviewing lab tests, ordering and interpreting/reviewing x-rays and diagnostic studies, care of the patient and discussion of the patient with the admitting physicians. Medical Decision Making MDM Narrative Medical decision making narrative: Patient with dyspnea likely secondary to CHF COPD exacerbation in addition to pneumonia. Will be admitted for IV antibiotics. Was started on Levaquin due to penicillin allergies. Hemodynamically stable no signs of acute ischemia on EKG. Patient was placed on Cardene drip for persistent hypertension. Medical Screen Exam Complete: Yes Emergency Medical Condition: Yes Lab Data Lab results reviewed: Yes I reviewed the patient's lab results. Result diagrams: 02/04/18 22:32 02/04/18 22:32 Lab Results 02/04/18 02/04/18 02/04/18 Range/Units 22:32 22:32 22:32 WBC 8.3 (4.0-11.0) th/mm3 RBC 3.93 L (4.00-5.30) mil/mm3 Hgb 11.5 L (11.6-15.3) gm/dL Hct 35.3 (35.0-46.0) % MCV 89.7 (80.0-100.0) fL MCH 29.3 (27.0-34.0) pg MCHC 32.6 (32.0-36.0) % RDW 14.6 (11.6-17.2) % Plt Count 176 (150-450) th/mm3 MPV 8.3 (7.0-11.0) fL Neut % (Auto) 56.4 (16.0-70.0) % Lymph % (Auto) 30.5 (9.0-44.0) % [place] % (Auto) 9.6 H (0.0-8.0) % Eos % (Auto) 2.5 (0.0-4.0) % Baso % (Auto) 1.0 (0.0-2.0) % Neut # (Auto) 4.7 (1.8-7.7) th/mm3 Lymph # (Auto) 2.5 (1.0-4.8) th/mm3 [place] # (Auto) 0.8 (0.0-0.9) th/mm3 Eos # (Auto) 0.2 (0.0-0.4) th/mm3 Baso # (Auto) 0.1 (0.0-0.2) th/mm3 WBC Differential . Differential Comment Auto diff final PT 10.0 (9.8-11.6) sec INR 1.0 Ratio APTT 24.8 (24.3-30.1) sec Sodium 141 (136-145) meq/L Potassium 4.1 (3.5-5.1) meq/L Chloride 99 (98-107) meq/L Carbon Dioxide 37.4 H (21.0-32.0) meq/L Anion Gap 5 (5-15) meq/L BUN 14 (7-18) mg/dL Creatinine 0.93 (0.50-1.00) mg/dL Estimated GFR 57 L (>89) mL/min Random Glucose 126 H (74-106) mg/dL Calcium 8.5 (8.5-10.1) mg/dL Total Bilirubin 0.5 (0.2-1.0) mg/dL AST 12 L (15-37) U/L ALT 15 (10-53) U/L Alkaline Phosphatase 71 (45-117) U/L Total Creatine Kinase 40 (26-192) U/L Troponin I Less than 0.02 L (0.02-0.05) ng/mL B-Natriuretic Peptide (0-100) pg/mL Total Protein 6.8 (6.4-8.2) g/dL Albumin 3.5 (3.4-5.0) g/dL 02/04/18 Range/Units 22:32 WBC (4.0-11.0) th/mm3 RBC (4.00-5.30) mil/mm3 Hgb (11.6-15.3) gm/dL Hct (35.0-46.0) % MCV (80.0-100.0) fL MCH (27.0-34.0) pg MCHC (32.0-36.0) % RDW (11.6-17.2) % Plt Count (150-450) th/mm3 MPV (7.0-11.0) fL Neut % (Auto) (16.0-70.0) % Lymph % (Auto) (9.0-44.0) % [place] % (Auto) (0.0-8.0) % Eos % (Auto) (0.0-4.0) % Baso % (Auto) (0.0-2.0) % Neut # (Auto) (1.8-7.7) th/mm3 Lymph # (Auto) (1.0-4.8) th/mm3 [place] # (Auto) (0.0-0.9) th/mm3 Eos # (Auto) (0.0-0.4) th/mm3 Baso # (Auto) (0.0-0.2) th/mm3 WBC Differential Differential Comment PT (9.8-11.6) sec INR Ratio APTT (24.3-30.1) sec Sodium (136-145) meq/L Potassium (3.5-5.1) meq/L Chloride (98-107) meq/L Carbon Dioxide (21.0-32.0) meq/L Anion Gap (5-15) meq/L BUN (7-18) mg/dL Creatinine (0.50-1.00) mg/dL Estimated GFR (>89) mL/min Random Glucose (74-106) mg/dL Calcium (8.5-10.1) mg/dL Total Bilirubin (0.2-1.0) mg/dL AST (15-37) U/L ALT (10-53) U/L Alkaline Phosphatase (45-117) U/L Total Creatine Kinase (26-192) U/L Troponin I (0.02-0.05) ng/mL B-Natriuretic Peptide 371 H (0-100) pg/mL Total Protein (6.4-8.2) g/dL Albumin (3.4-5.0) g/dL Imaging Data Radiologist's impression: Chest X-Ray 02/04/18 22:18 CONCLUSION: Persistent bilateral pleural effusions and patchy lower lung infiltrates. Chest CT 02/04/18 22:24 CONCLUSION: 1. Bilateral pulmonary opacity most prominent at the inferior portion of the right lower lobe. Findings suggest likely pulmonary edema with superimposed right lower lobe consolidation. 2. Small pleural effusions right greater than left. 3. Moderate severity pulmonary parenchymal emphysema. ECG Data Attestation: I personally reviewed and interpreted this ECG as follows: Interpretation: A. fib with [address]-T wave abnormalities. Left axis. No signs of acute ischemia. Discharge Plan Discharge Disposition Patient Disposition: 30 Still Patient Discharge Condition Condition: Stable Discharge Details Diagnosis: Community acquired pneumonia, Acute exacerbation of chronic obstructive airways disease, CHF exacerbation, Accelerated hypertension, Respiratory failure Physicians Team ED Provider: Pete Mckeon Primary Care Provider: UNKNOWN, Attending Provider: Phong Boothe Other Providers: Santino Bates ; [employer] Status ED Status: Admitted Patient
[2018-02-04 22:56] LABS: Baso # (Auto) 0.1 th/mm3 (0.0-0.2); Eos # (Auto) 0.2 th/mm3 (0.0-0.4); Eos % (Auto) 2.5 % (0.0-4.0); Hematocrit 35.3 % (35.0-46.0); Hemoglobin 11.5 gm/dL (11.6-15.3); Lymph # (Auto) 2.5 th/mm3 (1.0-4.8); Lymph % (Auto) 30.5 % (9.0-44.0); Mean Corpuscular HGB Conc 32.6 % (32.0-36.0); Mean Corpuscular Hemoglobin 29.3 pg (27.0-34.0); Mean Corpuscular Volume 89.7 fL (80.0-100.0); Mean Platelet Volume 8.3 fL (7.0-11.0); Mono # (Auto) 0.8 th/mm3 (0.0-0.9); Mono % (Auto) 9.6 % (0.0-8.0); Neut # (Auto) 4.7 th/mm3 (1.8-7.7); Neut % (Auto) 56.4 % (16.0-70.0); Platelet Count 176 th/mm3 (150-450); Red Blood Count 3.93 mil/mm3 (4.00-5.30); Red Cell Distribution Width 14.6 % (11.6-17.2); White Blood Count 8.3 th/mm3 (4.0-11.0)
--- NOTE | 2018-02-04 23:01 | XR ---
EXAM DATE: 02/04/2018 10:57 PM EDT AGE/SEX: 87 years / Female INDICATIONS: Short of breath with bilateral lower extremity swelling for 4 days. CLINICAL DATA: This is the patient's initial encounter. Patient reports that signs and symptoms have been present for 4 - 6 days and indicates a pain score of 0/10. MEDICAL/SURGICAL HISTORY: . Chronic obstructive pulmonary disease. Congestive heart failure. Hy pertension. None. COMPARISON: [facility] – [place], CHEST SINGLE AP, 10/30/2017. . FINDINGS: There is blunting of both costophrenic angles with meniscal interface. Patchy infiltrates are present at both lung bases, left greater than right. The central bronchopulmonary markings are engorged and indistinct. The heart is enlarged. CONCLUSION: Persistent bilateral pleural effusions and patchy lower lung infiltrates. Electronically signed by: Percy Sinclair MD 02/04/2018 11:00 PM EDT
[2018-02-04 23:12] LABS: Alanine Aminotransferase 15 U/L (10-53); Albumin 3.5 g/dL (3.4-5.0); Anion Gap 5 meq/L (5-15); Aspartate Aminotransferase 12 U/L (15-37); Blood Urea Nitrogen 14 mg/dL (7-18); Calcium 8.5 mg/dL (8.5-10.1); Carbon Dioxide 37.4 meq/L (21.0-32.0); Chloride 99 meq/L (98-107); Glomerular Filtration Rate 57 mL/min (>89); Glucose,Random 126 mg/dL (74-106); Potassium 4.1 meq/L (3.5-5.1); Sodium 141 meq/L (136-145)
[2018-02-04 23:16] LABS: Alkaline Phosphatase 71 U/L (45-117); Total Protein 6.8 g/dL (6.4-8.2)
[2018-02-04 23:17] LABS: Activated Partial Thrombo Time 24.8 sec (24.3-30.1)
[2018-02-04 23:27] LABS: Creatine Kinase 40 U/L (26-192)
--- NOTE | 2018-02-05 00:12 | CT ---
EXAM DATE: 02/04/2018 11:58 PM EDT AGE/SEX: 87 years / Female INDICATIONS: Shortness of breath. CLINICAL DATA: This is the patient's initial encounter. Patient reports that signs and symptoms have been present for 1 day and indicates a pain score of 0/10. MEDICAL/SURGICAL HISTORY: Congestive heart failure. Chronic obstructive pulmonary disease. Diabet es. Hypertension None. RADIATION DOSE: 13.83 CTDI (mGy) COMPARISON: No prior exams available for comparison. TECHNIQUE: Multiple contiguous axial images were obtained through the chest without contrast. Image s were obtained in suspended respiration using multiple row detector helical technique. Using automa daniella exposure control and adjustment of the mA and/or kV according to patient size, radiation dose was kept as low as reasonably achievable to obtain optimal diagnostic quality images. DICOM format imag e data is available electronically for review and comparison. FINDINGS: Lungs: Moderate severity on her parenchymal emphysema. Consolidation of the inferior aspect of the r ight lower lobe. Mild parenchymal opacity at the inferior aspect of the left lower lobe. Mild diffuse peripheral bilateral interstitial opacity. Mediastinum: Diffuse aortic calcification. Aortic diameter within normal limits. Extensive coronary artery calcification noted. No enlarged mediastinal lymph nodes. Heart is diffusely enlarged. Pleurae: Small bilateral pleural effusions right greater than left. Axillae: Unremarkable. Bony Structures: Prominent degenerative findings of the thoracic spine. Miscellaneous: Upper abdomen within normal limits. CONCLUSION: 1. Bilateral pulmonary opacity most prominent at the inferior portion of the right lower lobe. Findi ngs suggest likely pulmonary edema with superimposed right lower lobe consolidation. 2. Small pleural effusions right greater than left. 3. Moderate severity pulmonary parenchymal emphysema. Electronically signed by: Boris Null MD 02/05/2018 12:11 AM EDT
[2018-02-05] MEDS ORDERED: Dextrose 50% in Water 50 ML Vial IV.PUSH PRN (00:41)
[2018-02-05] MEDS ORDERED: MethylPREDNISolone Sod Succinate Inj 40 MG/ML Vial IV.PUSH SCH (01:00)
[2018-02-05] MEDS ORDERED: hydrALAZINE 10 MG Tablet PO SCH (01:00)
[2018-02-05] MEDS ORDERED: Aztreonam Inj 2 GM in Sodium Chloride 0.9% Inj 100 ML IV.SIG ONE (01:40)
[2018-02-05] MEDS ORDERED: niCARdipine Inj 25 MG in Sodium Chlor 0.9% Inj 240 ML IV.CONT PRN ×2 (02:12→02:51)
--- NOTE | 2018-02-05 05:01 | P.HPIM ---
History of Present Illness Primary Care Physician: UNKNOWN History of Present Illness: 79-year-old female with a history of hypertension, hyperlipidemia, CAD, CHF with ejection fraction 2530%, diabetes mellitus, COPD who presents with a 2 day history of progressively worsening shortness of breath at rest. She also reports worsening of her chronic bilateral lower extremity peripheral edema over the past week. Denies any cough. Denies any chest pain. Denies any fevers or chills. Patient follows with therapist physical, Dr. Noel. Patient has received duo nebs, Solu-Medrol IV, and is currently on BiPAP. She says she is feeling better. Inpatient Certification: I certify that the inpatient services were ordered in accordance with Medicare regulations governing the order. This includes certification that hospital inpatient services are reasonable and necessary and in the case of services not specified as inpatient-only under 42 CFR 419.22(n), that they are appropriately provided as inpatient services in accordance to with the 2-midnight benchmark under 43 CFR 412.3(e) Review of Systems All other systems reviewed negative except as stated in HPI [facility] - History History Provided By: Patient, Medical Record, Supervisor Of Way / EMT - Medical History Medical History: Medical History (Last Updated 02/05/18 @ 04:51 by Phong Boothe MD) Afib CAD (coronary artery disease) CHF (congestive heart failure) COPD (chronic obstructive pulmonary disease) Diabetes History of hysterectomy Hyperlipidemia Hypertension - Surgical History Surgical History: Surgical History (Last Updated 02/05/18 @ 04:51 by Phong Boothe MD) History of cardiac catheterization - Family History Family History: Family History (Last Updated 02/05/18 @ 04:51 by Phong Boothe MD) Father Family estrangement Mother CHF (congestive heart failure) - Tobacco History Second Hand Smoke Exposure: No Tobacco Use In Past 30 Days: No Smoking Status: Never smoker - Alcohol History How Often Do You Have a Drink Containing Alcohol: 2 to 4 times a month - Substance Use History Substance History: No History of Abuse - Travel History Recent Travel in the [place] Within the Last 8 Weeks: No Recent Travel Out of the Country Within the Last 8 Weeks: No - Immunization History Tetanus Immunization: >5 Years Hx Influenza Vaccine This Season: No Medications and Allergies Active Medications: Active Medications Azithromycin (Zithromax) 500 mg PO DAILY [facility] Stop: 02/07/18 09:01 Calcium Carbonate (Oscal) 500 mg PO DAILY [facility] Carvedilol (Coreg) 6.25 mg PO BID [facility] Clopidogrel Bisulfate (Plavix) 75 mg PO DAILY [facility] Dextrose (D50w Vial) 50 ml IV.PUSH UNSCH PRN PRN Reason: PER HYPOGLYCEMIA PROTOCOL Furosemide (Lasix) 40 mg PO BID [facility] Glucagon (Glucagon Inj) 1 mg OTHER PRN PRN PRN Reason: for Hypoglycemia Protocol Nicardipine HCl 25 mg/ Sodium (Chloride) 250 mls @ 50 mls/hr IV.CONT TITRATE PRN; Protocol PRN Reason: Per Protocol Last Admin: 02/05/18 03:01 Dose: 5 mg/hr, 50 mls/hr Insulin Aspart (Novolog Insulin Correctional Sugar Inj) 0 unit SQ ACHS [facility]; Protocol Ipratropium Putnam (Atrovent Neb) 0.5 mg NEB Q4HR NEB [facility] Last Admin: 02/05/18 04:09 Dose: 0.5 mg Ipratropium [place] (Atrovent Neb) 0.5 mg NEB Q6HR NEB PRN PRN Reason: SHORTNESS OF BREATH Last Admin: 02/05/18 01:31 Dose: 0.5 mg Losartan Potassium (Cozaar) 25 mg PO DAILY [facility] Magnesium Oxide (Mag-Ox) 400 mg PO DAILY [facility] Methylprednisolone Sodium Succinate (Solumedrol Inj) 60 mg IV.PUSH Q6H [facility] Last Admin: 02/05/18 03:03 Dose: 60 mg Nifedipine (Procardia Xl) 30 mg PO DAILY [facility] Last Admin: 02/05/18 01:46 Dose: 30 mg Sodium Chloride (Ns Flush) 2 ml IV.FLUSH BID [facility] Sodium Chloride (Ns Flush) 2 ml IV.FLUSH PRN PRN PRN Reason: FLUSH AFTER USING IV ACCESS Allergies Allergy/AdvReac Type Severity Reaction Status Date / Time diatrizoate meglumine Allergy Severe ITCHING,RED Verified 02/04/18 23:21 NESS,SOB gadobenic acid Allergy Severe ITCHING,RED Verified 02/04/18 23:21 NESS,SOB gadodiamide Allergy Severe ITCHING,RED Verified 02/04/18 23:21 NESS,SOB gadoteridol Allergy Severe ITCHING,RED Verified 02/04/18 23:21 NESS,SOB Iodinated Contrast- Oral and Allergy Severe HIVES Verified 02/04/18 23:21 IV Dye iodixanol Allergy Severe ITCHING,RED Verified 02/04/18 23:21 NESS,SOB iohexol Allergy Severe ITCHING,RED Verified 02/04/18 23:21 NESS,SOB penicillin G Allergy Severe SOB, RASH Verified 02/04/18 23:21 Sulfa (Sulfonamide Allergy Severe RASH Verified 02/04/18 23:21 Antibiotics) Home Medications Medication Instructions Recorded Confirmed Type calcium carbonate-vitamin D3 500 mg PO DAILY 02/04/18 02/04/18 History [Calcium 500 + D] carvedilol [Coreg] 6.25 mg PO BID 02/04/18 02/04/18 History clopidogrel [Plavix] 75 mg PO DAILY 02/04/18 02/04/18 History furosemide [Lasix] 40 mg PO BID 02/04/18 02/04/18 History losartan 25 mg PO DAILY 02/04/18 02/04/18 History magnesium oxide 500 mg PO DAILY 02/04/18 02/04/18 History metformin 1,000 mg PO DAILY 02/04/18 02/04/18 History metformin 500 mg PO HS 02/04/18 02/04/18 History omega 7-fhv-tog-fish oil [Fish Oil] 1,000 mg PO DAILY 02/04/18 02/04/18 History Exam Vital signs: Vital Signs 02/04/18 22:17 02/04/18 22:21 02/04/18 23:24 Pulse Rate 71 85 86 Respiratory Rate 20 20 Blood Pressure 159/95 H 210/97 H 185/86 H Pulse Oximetry 98 96 02/04/18 23:27 02/05/18 01:31 02/05/18 02:00 Pulse Rate 73 105 H Respiratory Rate 22 26 H Blood Pressure Pulse Oximetry 92 L 92 L 97 02/05/18 02:04 02/05/18 02:11 02/05/18 02:23 Pulse Rate 107 H Respiratory Rate 22 Blood Pressure 247/116 H 167/78 H Pulse Oximetry 92 L 96 02/05/18 02:24 02/05/18 03:24 02/05/18 03:30 Pulse Rate 94 H 83 88 Respiratory Rate 20 20 20 Blood Pressure 167/78 H 158/74 H 131/62 Pulse Oximetry 96 99 02/05/18 03:45 02/05/18 04:03 02/05/18 04:08 Pulse Rate 88 88 Respiratory Rate 20 18 Blood Pressure 122/61 146/67 H Pulse Oximetry 94 L 96 92 L 02/05/18 04:09 02/05/18 04:24 Pulse Rate 95 H 95 H Respiratory Rate 23 Blood Pressure 144/69 H Pulse Oximetry 95 Intake & Output 02/04/18 02/04/18 02/05/18 06:59 18:59 06:59 Intake Total 100 / 100 Balance 100 / 100 Weight 66.678 kg Intake: IV 100 / 100 Azactam Inj 2 GM In NS Inj 100 100 / 100 ML @ 200 mls/hr IV.SIG ONCE ONE Rx#:[id number] Narrative: GENERAL: Patient sitting up in bed on BiPAP. Appears to be breathing comfortably. She is alert and oriented 3. SKIN: Warm and dry. HEAD: Atraumatic. Normocephalic. EYES: Pupils equal and round. No scleral icterus. No injection or drainage. ENT: No nasal bleeding or discharge. Mucous membranes pink and moist. NECK: Trachea midline. No JVD. CARDIOVASCULAR: Regular rate and rhythm. RESPIRATORY: No accessory muscle use. Wheezes bilaterally. Breath sounds equal bilaterally. GASTROINTESTINAL: Abdomen soft, non-tender, nondistended. Hepatic and splenic margins not palpable. MUSCULOSKELETAL: Extremities without clubbing, cyanosis. +2 bilateral lower extremity edema.. No obvious deformities. NEUROLOGICAL: Awake and alert. No obvious cranial nerve deficits. Motor grossly within normal limits. Five out of 5 muscle strength in the arms and legs. Normal speech. PSYCHIATRIC: Appropriate mood and affect; insight and judgment normal. Results - Labs CBC & Chem 7: 02/04/18 22:32 02/04/18 22:32 Labs: Short CBC 02/04/18 Range/Units 22:32 WBC 8.3 (4.0-11.0) th/mm3 Hgb 11.5 L (11.6-15.3) gm/dL Hct 35.3 (35.0-46.0) % Plt Count 176 (150-450) th/mm3 BMP 02/04/18 22:32 Sodium 141 Potassium 4.1 Chloride 99 Carbon Dioxide 37.4 H BUN 14 Creatinine 0.93 Calcium 8.5 Cardiac Enzymes 02/04/18 Range/Units 22:32 Total Creatine Kinase 40 (26-192) U/L Troponin I Less than 0.02 L (0.02-0.05) ng/mL Liver Function 02/04/18 Range/Units 22:32 Total Bilirubin 0.5 (0.2-1.0) mg/dL AST 12 L (15-37) U/L ALT 15 (10-53) U/L Alkaline Phosphatase 71 (45-117) U/L Albumin 3.5 (3.4-5.0) g/dL - Imaging Impressions Chest X-Ray 02/04/18 22:18 CONCLUSION: Persistent bilateral pleural effusions and patchy lower lung infiltrates. Chest CT 02/04/18 22:24 CONCLUSION: 1. Bilateral pulmonary opacity most prominent at the inferior portion of the right lower lobe. Findings suggest likely pulmonary edema with superimposed right lower lobe consolidation. 2. Small pleural effusions right greater than left. 3. Moderate severity pulmonary parenchymal emphysema. Caprini VTE Risk Assessment Caprini VTE Risk Assessment: Moderate/High Risk (score >= 2) Caprini Risk Assessment Model: Point Value = 1 Point Value = 2 Point Value = 3 Point Value = 5 Age 41-60 Minor surgery BMI > 25 kg/m2 Swollen legs Varicose veins or History of unexplained or recurrent spontaneous Oral contraceptives or hormone replacement Sepsis (< 1 month) Serious lung disease, including pneumonia (< 1 month) Abnormal pulmonary function Acute myocardial infarction Congestive heart failure (< 1 month) History of inflammatory bowel disease Medical patient at bed rest Age 61-74 Arthroscopic surgery Major open surgery (> 45 min) Laparoscopic surgery (> 45 min) Malignancy Confined to bed (> 72 hours) Immobilizing plaster cast Central venous access Age >= 75 History of VTE Family history of VTE Factor V Leiden Prothrombin [id number] Lupus anticoagulant Anticardiolipin antibodies Elevated serum homocysteine Heparin-induced thrombocytopenia Other congenital or acquired thrombophilia Stroke (< 1 month) Elective arthroplasty Hip, pelvis, or leg fracture Acute spinal cord injury (< 1 month) Prophylaxis Regimen: Total Risk Factor Score Risk Level Prophylaxis Regimen 0-1 Low Early ambulation 2 Moderate Order ONE of the following: *Sequential Compression Device (SCD) *Heparin 5000 units SQ BID 3-4 Higher Order ONE of the following medications: *Heparin 5000 units SQ TID *Enoxaparin/Lovenox 40 mg SQ daily (WT < 150 kg, CrCl > 30 mL/min) *Enoxaparin/Lovenox 30 mg SQ daily (WT < 150 kg, CrCl > 10-29 mL/min) *Enoxaparin/Lovenox 30 mg SQ BID (WT < 150 kg, CrCl > 30 mL/min) AND/OR *Sequential Compression Device (SCD) 5 or more Highest Order ONE of the following medications: *Heparin 5000 units SQ TID (Preferred with Epidurals) *Enoxaparin/Lovenox 40 mg SQ daily (WT < 150 kg, CrCl > 30 mL/min) *Enoxaparin/Lovenox 30 mg SQ daily (WT < 150 kg, CrCl > 10-29 mL/min) *Enoxaparin/Lovenox 30 mg SQ BID (WT < 150 kg, CrCl > 30 mL/min) AND *Sequential Compression Device (SCD) Assessment and Plan - Plan //Acute respiratory failure //COPD exacerbation = CT chest with what appears to be pulmonary edema, moderate emphysema Duo nebs, steroids. Azithromycin. Patient improved on BiPAP Pulmonology to be consulted.. //Suspected CHF exacerbation BNP 370s. What appears to be edema on CT chest. Will give dose of IV Lasix. Place on fluid restrictions. Continue twice daily p.o. Lasix. Likely hypertension exacerbating CHF/pulmonary edema. Continue to monitor fluid status closely. //Accelerated hypertension Systolic blood pressure initially in the 200s, still in the 180s. Blood pressure dropped on nicardipine drip. Will add blood pressure medication of nifedipine. Continue to monitor. //Diabetes mellitus. Diabetic diet. Insulin sliding scale. Glucose in the 120s on admission. Continue to monitor. Discussed Condition With: Patient, nurse, ED physician.
[2018-02-05 05:03] LABS: ABG Base Excess 4.8 mmol/L (-2-2); ABG PCO2 62 mmHg (38-42); ABG PO2 85 mmHg (61-120)
[2018-02-05] MEDS ORDERED: Furosemide 40 MG Tablet PO SCH (09:00)
[2018-02-05] MEDS ORDERED: Carvedilol 6.25 MG Tablet PO SCH (09:00)
[2018-02-05] MEDS: Carvedilol 6.25 MG Tablet PO SCH ×2 (09:07→20:20)
[2018-02-05] MEDS: Azithromycin 250 MG Tablet PO SCH (09:07)
[2018-02-05] MEDS: Magnesium Oxide 400 MG Tablet PO SCH (09:08)
[2018-02-05] MEDS: MethylPREDNISolone Sod Succinate Inj 125 MG/2 ML Vial IV.PUSH SCH ×3 (09:08→20:21)
[2018-02-05] MEDS: Furosemide 40 MG Tablet PO SCH ×2 (09:08→20:21)
[2018-02-05] MEDS: Calcium Carbonate 500 MG Tablet PO SCH (09:08)
[2018-02-05] MEDS: Insulin NovoLOG Aspart Correctional Sugar Inj SQ SCH ×4 (09:09→20:31)
[2018-02-05] MEDS ORDERED: LORazepam 0.5 MG Tablet PO PRN (11:18)
--- NOTE | 2018-02-05 11:24 | P.PN ---
Subjective Interval history: Patient doing well, reports improved SOB since admission. At home is on 2L of O2 , patient denies CP. No other concerns. Physical Exam Vital signs: Vital Signs 02/04/18 22:17 02/04/18 22:21 02/04/18 23:24 Pulse Rate 71 85 86 Respiratory Rate 20 20 Blood Pressure 159/95 H 210/97 H 185/86 H Pulse Oximetry 98 96 02/04/18 23:27 02/05/18 01:31 02/05/18 02:00 Pulse Rate 73 105 H Respiratory Rate 22 26 H Blood Pressure Pulse Oximetry 92 L 92 L 97 02/05/18 02:04 02/05/18 02:11 02/05/18 02:23 Pulse Rate 107 H Respiratory Rate 22 Blood Pressure 247/116 H 167/78 H Pulse Oximetry 92 L 96 02/05/18 02:24 02/05/18 03:24 02/05/18 03:30 Pulse Rate 94 H 83 88 Respiratory Rate 20 20 20 Blood Pressure 167/78 H 158/74 H 131/62 Pulse Oximetry 96 99 02/05/18 03:45 02/05/18 04:03 02/05/18 04:08 Pulse Rate 88 88 Respiratory Rate 20 18 Blood Pressure 122/61 146/67 H Pulse Oximetry 94 L 96 92 L 02/05/18 04:09 02/05/18 04:24 02/05/18 05:00 Pulse Rate 95 H 95 H Respiratory Rate 23 Blood Pressure 144/69 H Pulse Oximetry 95 98 02/05/18 05:17 02/05/18 06:40 02/05/18 08:00 Pulse Rate 93 H 90 Respiratory Rate 20 20 Blood Pressure 151/81 H 164/75 H Pulse Oximetry 97 95 95 Intake & Output 02/04/18 02/05/18 02/05/18 18:59 06:59 18:59 Intake Total 340 / 340 Balance 340 / 340 Weight 66.678 kg Intake: IV 100 / 100 Azactam Inj 2 GM In NS Inj 100 100 / 100 ML @ 200 mls/hr IV.SIG ONCE ONE Rx#:[id number] Oral 240 / 240 Other: # Voids 1 Results - Labs CBC & Chem 7: 02/04/18 22:32 02/04/18 22:32 Laboratory Results - last 24 hr 02/04/18 02/04/1818 22:32 22:32 22:32 WBC 8.3 RBC 3.93 L Hgb 11.5 L Hct 35.3 MCV 89.7 MCH 29.3 MCHC 32.6 RDW 14.6 Plt Count 176 MPV 8.3 Neut % (Auto) 56.4 Lymph % (Auto) 30.5 [place] % (Auto) 9.6 H Eos % (Auto) 2.5 Baso % (Auto) 1.0 Neut # (Auto) 4.7 Lymph # (Auto) 2.5 [place] # (Auto) 0.8 Eos # (Auto) 0.2 Baso # (Auto) 0.1 WBC Differential . Differential Comment Auto diff final PT 10.0 INR 1.0 APTT 24.8 Puncture Site Patient Temperature O2 Saturation ABG pH ABG pCO2 ABG pO2 ABG HCO3 ABG O2 Content ABG Base Excess ABG Methemoglobin Jj Test Hemoglobin Carboxyhemoglobin O2 Delivery Device Vent Setting Inspired O2 Critical Value Sodium 141 Potassium 4.1 Chloride 99 Carbon Dioxide 37.4 H Anion Gap 5 BUN 14 Creatinine 0.93 Estimated GFR 57 L POC Glucose Random Glucose 126 H Calcium 8.5 Total Bilirubin 0.5 AST 12 L ALT 15 Alkaline Phosphatase 71 Total Creatine Kinase 40 Troponin I Less than 0.02 L B-Natriuretic Peptide Total Protein 6.8 Albumin 3.5 Nasal Screen MRSA (PCR) Staph aureus (PCR) 02/04/18 02/05/18 02/05/18 22:32 04:44 08:00 WBC RBC Hgb Hct MCV MCH MCHC RDW Plt Count MPV Neut % (Auto) Lymph % (Auto) [place] % (Auto) Eos % (Auto) Baso % (Auto) Neut # (Auto) Lymph # (Auto) [place] # (Auto) Eos # (Auto) Baso # (Auto) WBC Differential Differential Comment PT INR APTT Puncture Site Right radial Patient Temperature 98.6 O2 Saturation 94 ABG pH 7.32 L ABG pCO2 62 H* ABG pO2 85 ABG HCO3 31 H ABG O2 Content 15.7 ABG Base Excess 4.8 H ABG Methemoglobin 0.4 Jj Test Present Hemoglobin 11.8 L Carboxyhemoglobin 1.4 O2 Delivery Device Bipap Vent Setting 10 ipap/5 epap/45% Inspired O2 45 Critical Value Yes Sodium Potassium Chloride Carbon Dioxide Anion Gap BUN Creatinine Estimated GFR POC Glucose Random Glucose Calcium Total Bilirubin AST ALT Alkaline Phosphatase Total Creatine Kinase Troponin I B-Natriuretic Peptide 371 H Total Protein Albumin Nasal Screen MRSA (PCR) Cancelled Staph aureus (PCR) Cancelled 02/05/18 08:33 WBC RBC Hgb Hct MCV MCH MCHC RDW Plt Count MPV Neut % (Auto) Lymph % (Auto) [place] % (Auto) Eos % (Auto) Baso % (Auto) Neut # (Auto) Lymph # (Auto) [place] # (Auto) Eos # (Auto) Baso # (Auto) WBC Differential Differential Comment PT INR APTT Puncture Site Patient Temperature O2 Saturation ABG pH ABG pCO2 ABG pO2 ABG HCO3 ABG O2 Content ABG Base Excess ABG Methemoglobin Jj Test Hemoglobin Carboxyhemoglobin O2 Delivery Device Vent Setting Inspired O2 Critical Value Sodium Potassium Chloride Carbon Dioxide Anion Gap BUN Creatinine Estimated GFR POC Glucose 208 H Random Glucose Calcium Total Bilirubin AST ALT Alkaline Phosphatase Total Creatine Kinase Troponin I B-Natriuretic Peptide Total Protein Albumin Nasal Screen MRSA (PCR) Staph aureus (PCR) Microbiology 02/04/18 22:36 Nasal Wash Influenza Types A,B Antigen - Final Negative for FLU A and B antigen Infection due to influenza A or B cannot be ruled out since the antigen present in the sample may be below the detection limit of the test. - Imaging Impressions Chest X-Ray 02/04/18 22:18 CONCLUSION: Persistent bilateral pleural effusions and patchy lower lung infiltrates. Chest CT 02/04/18 22:24 CONCLUSION: 1. Bilateral pulmonary opacity most prominent at the inferior portion of the right lower lobe. Findings suggest likely pulmonary edema with superimposed right lower lobe consolidation. 2. Small pleural effusions right greater than left. 3. Moderate severity pulmonary parenchymal emphysema.
--- NOTE | 2018-02-05 17:44 | ECG ---
Date Performed: 02/04/2018 Time Performed: 22:24:28 PTAGE: 87 years EKG: ATRIAL FIBRILLATION POSSIBLE ANTERIOR MYOCARDIAL INFARCTION LATE R WAVE TRANSITION ABNORMAL RHYTHM ECG PREVIOUS TRACING : 10/27/2017 22.14 DOCTOR: Dino Vaughn Interpretating Date/Time 02/05/2018 18:06:48
[2018-02-06] MEDS: MethylPREDNISolone Sod Succinate Inj 125 MG/2 ML Vial IV.PUSH SCH ×2 (03:12→09:13)
[2018-02-06 06:07] LABS: Hematocrit 33.8 % (35.0-46.0); Hemoglobin 11.3 gm/dL (11.6-15.3); Mean Corpuscular HGB Conc 33.3 % (32.0-36.0); Mean Corpuscular Hemoglobin 29.3 pg (27.0-34.0); Mean Platelet Volume 8.5 fL (7.0-11.0); Platelet Count 173 th/mm3 (150-450); Red Blood Count 3.84 mil/mm3 (4.00-5.30); White Blood Count 9.7 th/mm3 (4.0-11.0)
[2018-02-06 06:39] LABS: C-Reactive Protein 0.38 mg/dL (0.00-0.30); Calcium 8.8 mg/dL (8.5-10.1); Carbon Dioxide 31.3 meq/L (21.0-32.0); Potassium 3.7 meq/L (3.5-5.1)
[2018-02-06 07:33] LABS: Lymphocytes 10 % (9-44); Monocytes 1 % (0-8); Ovalocytes 1+; Platelet Estimate Normal (Normal); Platelet Morphology Normal (Normal)
[2018-02-06] MEDS: Insulin NovoLOG Aspart Correctional Sugar Inj SQ SCH ×4 (09:11→20:53)
[2018-02-06] MEDS: Carvedilol 6.25 MG Tablet PO SCH ×2 (09:12→20:37)
[2018-02-06] MEDS: Furosemide 40 MG Tablet PO SCH ×2 (09:13→20:37)
[2018-02-06] MEDS: Magnesium Oxide 400 MG Tablet PO SCH (09:14)
[2018-02-06] MEDS: Azithromycin 250 MG Tablet PO SCH (09:15)
[2018-02-06] MEDS: Calcium Carbonate 500 MG Tablet PO SCH (09:15)
--- NOTE | 2018-02-06 11:37 | MB ---
cc: Fabian Noel MD DATE: 02/06/2018 HISTORY: Ms. Álvarze is an 87-year-old white female seen by me in 10/2017 when she was admitted for congestive heart failure. She had a [id number]-etdf smoking history, quit about 10 years ago when she was diagnosed with COPD, but had required no maintenance therapy. After discharge, I saw her back in the hospital 01/28/2018 at which time she was feeling much better and we scheduled her for pulmonary functions and a followup scan in order to determine if she had underlying lung disease or all of this problem was related to her CHF. She does have a significant cardiomyopathy with an EF in the range of 30%-35%. She presented back to the hospital yesterday with increasing shortness of breath. Chest x-ray and CT scan revealed mild pulmonary edema and possibly a right lower lobe infiltrate suspicious for pneumonia. She was placed on diuretics, bronchodilators, corticosteroids and antibiotics and is feeling better at the time of this consultation yesterday. She had no chest pain or hemoptysis. She had significant increasing edema in her ankles since I saw her 2 weeks ago. She had been using oxygen at home, particularly for sleep. She was also on Coreg, Lasix, Plavix, metformin, and losartan. PAST MEDICAL HISTORY: Congestive heart failure, hypertension, diabetes, peripheral arterial disease, COPD diagnosed at some point in the past, question of pulmonary fibrosis. PAST SURGICAL HISTORY: She has had a previous hysterectomy, thyroidectomy, and angioplasty of the left lower extremity for PAD. ALLERGIES: INTRAVENOUS CONTRAST, SULFA AND PENICILLIN. SOCIAL HISTORY: 50-60 pack years. No alcohol use. She drinks wine occasionally, not to excess. REVIEW OF SYSTEMS: Other than that noted above, she developed orthopnea and PND. She had a cough, but no productive sputum, no hemoptysis. She had no recent change in bowel habits. PHYSICAL EXAMINATION: GENERAL: Awake, alert, comfortable at rest. VITAL SIGNS: Afebrile. Blood pressure 140/70, pulse 90, respirations 18 and nonlabored on O2. HEENT: Sclerae anicteric. Mucous membranes moist. NECK: Neck veins not distended. LUNGS: Some minimal basilar rales and slight congestion. No wheezing. HEART: Regular rhythm. Soft systolic murmur. No audible S3. ABDOMEN: Soft. EXTREMITIES: 1+ plus ankle edema. No calf tenderness or cyanosis. LABORATORY DATA: Labs and scans are reviewed. ASSESSMENT AND PLAN: Ms. Álvarez presents with a probable combined mild exacerbation of chronic obstructive pulmonary disease, mild congestive heart failure, and possibly a right lower lobe pneumonia. We will try to obtain a sputum. Continue current therapy and make further adjustments depending on her response and ongoing clinical course. R. MD ALEJANDRA Lance/jason , 09:43 AM , 09:50 AM
--- NOTE | 2018-02-06 14:33 | ECHRPT ---
Indication: SOB CONCLUSIONS Normal left ventricular size. Mild concentric left ventricular hypertrophy. The left ventricular systolic function is normal with an estimated ejection fraction in the range of 55-60%. No regional wall motion abnormalities are present. The left atrial size is mildly dilated. The right atrial size is moderately dilated. Trace mitral valve regurgitation. There is mild tricuspid valve regurgitation. The estimated pulmonary arterial pressure is 44 mmHg. Trileaflet aortic valve. Mild calcification of the right coronary cusp. No aortic valve stenosis or regurgitation. BP: / HR: Rhythm: MEASUREMENTS (Male / Female) Normal Values Technical Quality: 2D ECHO LV Diastolic Diameter PLAX 4.7 cm 4.2 - 5.9 / 3.9 - 5.3 cm IVS Diastolic Thickness 1.1 cm 0.6 - 1.0 / 0.6 - 0.9 cm LVPW Diastolic Thickness 0.7 cm 0.6 - 1.0 / 0.6 - 0.9 cm LV Relative Wall Thickness 0.4 RV Internal Dim ED PLAX 1.8 cm LA Systolic Diameter LX 4.1 cm 3.0 - 4.0 / 2.7 - 3.8 cm M-MODE AV Cusp Separation MM 2.0 cm DOPPLER Mitral E Point Velocity 110.0 cm/s Mitral A Point Velocity 31.5 cm/s Mitral E to A Ratio 3.5 TR Peak Velocity 293.0 cm/s TR Peak Gradient 34.3 mmHg Right Atrial Pressure 10.0 mmHg Pulmonary Artery Systolic Pressu 44.3 mmHg Right Ventricular Systolic Press 44.3 mmHg FINDINGS LEFT VENTRICLE Normal left ventricular size. Mild concentric left ventricular hypertrophy. The left ventricular systolic function is normal with an estimated ejection fraction in the range of 55-60%. No regional wall motion abnormalities are present. RIGHT VENTRICLE Normal right ventricular size and systolic function. LEFT ATRIUM The left atrial size is mildly dilated. RIGHT ATRIUM The right atrial size is moderately dilated. ATRIAL SEPTUM Normal atrial septal thickness without atrial level shunting by limited color doppler interrogation. AORTA The aortic root and proximal ascending aorta are normal in size on limited imaging. MITRAL VALVE Trace mitral valve regurgitation. AORTIC VALVE Trileaflet aortic valve. Mild calcification of the right coronary cusp. No aortic valve stenosis or regurgitation. TRICUSPID VALVE There is mild tricuspid valve regurgitation. The estimated pulmonary arterial pressure is 44 mmHg. PULMONARY VALVE Trivial pulmonary valve regurgitation. VESSELS The inferior vena cava is normal in size. PERICARDIUM There is a small pericardial effusion present. Barron H. Hayley MD (Electronically Signed) Final Date:06 February 2018 14:32
--- NOTE | 2018-02-06 17:27 | P.PN ---
Subjective Interval history: Follow-up for multifactorial hypoxic respiratory failure. Patient is currently doing well. On supplemental oxygen via nasal cannula. Sitting in her chair. Denies any chest pain, shortness of breath, fever or chills. Physical Exam Vital signs: Vital Signs 02/05/18 17:24 02/05/18 18:00 02/05/18 20:00 Temperature 97.0 F L Pulse Rate 81 81 78 Respiratory Rate 16 20 Blood Pressure 138/65 Pulse Oximetry 95 Pulse Oximetry [Resting on Room Air] Pulse Oximetry [Resting with Oxygen] 02/05/18 20:39 02/05/18 22:00 02/06/18 00:00 Temperature 98.0 F Pulse Rate 70 76 70 Respiratory Rate 20 28 H Blood Pressure 117/58 L Pulse Oximetry 94 L 99 Pulse Oximetry [Resting on Room Air] Pulse Oximetry [Resting with Oxygen] 02/06/18 02:00 02/06/18 04:00 02/06/18 06:00 Temperature 97.0 F L Pulse Rate 77 75 81 Respiratory Rate 17 Blood Pressure 135/63 Pulse Oximetry 99 Pulse Oximetry [Resting on Room Air] Pulse Oximetry [Resting with Oxygen] 02/06/18 08:00 02/06/18 08:31 02/06/18 10:00 Temperature 97.6 F Pulse Rate 94 H 92 H Respiratory Rate 20 Blood Pressure 125/61 Pulse Oximetry 100 93 L Pulse Oximetry [Resting on Room Air] Pulse Oximetry [Resting with Oxygen] 02/06/18 12:16 02/06/18 14:21 Temperature Pulse Rate 74 Respiratory Rate 18 Blood Pressure Pulse Oximetry Pulse Oximetry [Resting on Room Air] 86 L Pulse Oximetry [Resting with Oxygen] 97 Intake & Output 02/05/18 02/06/18 02/06/18 18:59 06:59 18:59 Intake Total 500 / 500 240 / 240 Output Total 600 / 600 500 / 500 Balance -100 / -100 -260 / -260 Weight 70.9 kg Intake: IV 10 10 Cardene Inj 25 MG In NS Inj 240 10 / 10 ML @ 5 MG/HR 50 mls/hr IV.CONT TITRATE PRN Rx#:[id number] Oral 500 / 500 240 / 240 Output: Urine 600 / 600 500 / 500 Other: # Voids 6 # Incontinent Voids 4 1 Date of Last Bowel Movement 02/04/18 02/04/18 02/04/18 # Bowel Movements 0 Narrative: GENERAL: Alert, NAD. SKIN: Warm and dry. HEAD: Normocephalic. EYES: No scleral icterus. No injection or drainage. NECK: Supple, trachea midline. No JVD or lymphadenopathy. CARDIOVASCULAR: Regular rate and rhythm without murmurs, gallops, or rubs. Mild bibasilar crackles especially on the left side. RESPIRATORY: Breath sounds equal bilaterally. No accessory muscle use. GASTROINTESTINAL: Abdomen soft, non-tender, nondistended. MUSCULOSKELETAL: No cyanosis, or edema. BACK: Nontender without obvious deformity. No CVA tenderness. Results - Labs CBC & Chem 7: 02/06/18 05:55 02/06/18 05:55 Laboratory Results - last 24 hr 02/05/18 02/05/18 02/06/18 17:50 20:25 05:55 WBC RBC Hgb Hct MCV MCH MCHC RDW Plt Count MPV Prelim Diff (Auto) WBC Differential Seg Neuts % (Manual) Band Neuts % (Manual) Lymphocytes % (Manual) Monocytes % (Manual) Abs Neuts (Manual) Differential Comment Platelet Estimate Platelet Morphology Ovalocytes Sodium Potassium Chloride Carbon Dioxide Anion Gap BUN Creatinine Estimated GFR POC Glucose 246 H 282 H Random Glucose Calcium C-Reactive Protein B-Natriuretic Peptide 306 H 02/06/18 02/06/18 02/06/18 05:55 05:55 13:03 WBC 9.7 RBC 3.84 L Hgb 11.3 L Hct 33.8 L MCV 88.0 MCH 29.3 MCHC 33.3 RDW 14.0 Plt Count 173 MPV 8.5 Prelim Diff (Auto) Manual diff required WBC Differential Manual diff final Seg Neuts % (Manual) 88 H Band Neuts % (Manual) 1 Lymphocytes % (Manual) 10 Monocytes % (Manual) 1 Abs Neuts (Manual) 8.6 H Differential Comment . Platelet Estimate Normal Platelet Morphology Normal Ovalocytes 1+ H Sodium 135 L Potassium 3.7 Chloride 96 L Carbon Dioxide 31.3 Anion Gap 8 BUN 19 H Creatinine 0.90 Estimated GFR 59 L POC Glucose 233 H Random Glucose 176 H Calcium 8.8 C-Reactive Protein 0.38 H B-Natriuretic Peptide Microbiology 02/05/18 00:54 Blood - Peripheral Aerobic Blood Culture - Preliminary Staphylococcus coag negative 02/05/18 00:54 Blood - Peripheral Anaerobic Blood Culture - Preliminary No growth in 1 day 02/05/18 00:49 Blood - Peripheral Aerobic Blood Culture - Preliminary No growth in 1 day 02/05/18 00:49 Blood - Peripheral Anaerobic Blood Culture - Preliminary No growth in 1 day - Procedures Echo 02/06/2018 Normal left ventricular size. Mild concentric left ventricular hypertrophy. The left ventricular systolic function is normal with an estimated ejection fraction in the range of 55-60%. No regional wall motion abnormalities are present. The left atrial size is mildly dilated. The right atrial size is moderately dilated. Trace mitral valve regurgitation. There is mild tricuspid valve regurgitation. The estimated pulmonary arterial pressure is 44 mmHg. Trileaflet aortic valve. Mild calcification of the right coronary cusp. No aortic valve stenosis or regurgitation. Assessment and Plan - Plan Ms. Álvarez is a pleasant 87-year-old female with a history of hypertension, hyperlipidemia, CAD, CHF, COPD who was admitted to the hospital on 02/05/2018 due to 2-day duration of dyspnea. Patient was a started on breathing treatment, antibiotics as well as Lasix. She was evaluated by her training and documentation specialist Dr. Jose Noel. The following day on 02/06/2018, patient reports significant improvement of her symptoms. Acute respiratory failure hypoxic Probable acute exacerbation of COPD Probable acute on chronic diastolic congestive heart failure -Appreciate pulmonology input. -Maintain supplemental O2 to keep O2 saturation above 88%. -Continue Atrovent nebulizer treatment as needed. -Continue Lasix 40 mg p.o. twice daily. -Continue prednisone 20 mg daily. -Continue azithromycin 500 mg p.o. daily. Hypertension -Continue carvedilol 6.25 mg p.o. twice daily, losartan 25 mg p.o. daily, nifedipine 60 mg p.o. daily. Full code. SCDs, Ambulation.
[2018-02-07] MEDS: predniSONE 20 MG Tablet PO SCH (08:02)
[2018-02-07] MEDS: Carvedilol 6.25 MG Tablet PO SCH ×2 (08:03→21:25)
[2018-02-07] MEDS: Calcium Carbonate 500 MG Tablet PO SCH (08:03)
[2018-02-07] MEDS: Insulin NovoLOG Aspart Correctional Sugar Inj SQ SCH ×4 (08:03→21:26)
[2018-02-07] MEDS: Magnesium Oxide 400 MG Tablet PO SCH (08:03)
[2018-02-07] MEDS: Furosemide 40 MG Tablet PO SCH ×2 (08:03→21:22)
[2018-02-07] MEDS: Azithromycin 250 MG Tablet PO SCH (08:03)
--- NOTE | 2018-02-07 16:38 | P.PN ---
Subjective Interval history: Follow-up hypoxic respiratory failure February 07, 2018-patient seen and examined, denies any shortness of breath. No acute event overnight Physical Exam Vital signs: Vital Signs 02/06/18 18:00 02/06/18 20:00 02/06/18 20:31 Temperature 98.6 F Pulse Rate 79 76 70 Respiratory Rate 21 18 Blood Pressure 112/66 Pulse Oximetry 100 94 L 02/06/18 22:00 02/07/18 00:00 02/07/18 02:00 Temperature 98.1 F Pulse Rate 79 71 71 Respiratory Rate 20 Blood Pressure 92/44 L Pulse Oximetry 100 02/07/18 04:00 02/07/18 06:00 02/07/18 08:00 Temperature 97.6 F 98.3 F Pulse Rate 74 73 72 Respiratory Rate 18 22 Blood Pressure 105/54 L 127/58 L Pulse Oximetry 99 100 02/07/18 08:26 02/07/18 10:00 02/07/18 12:00 Temperature 98.1 F Pulse Rate 71 70 72 Respiratory Rate 19 23 Blood Pressure 123/58 L Pulse Oximetry 98 98 02/07/18 14:16 02/07/18 16:00 Temperature 97.6 F Pulse Rate 71 77 Respiratory Rate 18 21 Blood Pressure 118/77 Pulse Oximetry 97 Intake & Output 02/06/18 02/07/18 02/07/18 18:59 06:59 18:59 Intake Total 570 / 570 480 / 480 480 / 480 Output Total 650 / 650 600 / 600 400 / 400 Balance -80 / -80 -120 / -120 80 / 80 Weight 69.7 kg Intake: IV 10 / 10 Cardene Inj 25 MG In NS Inj 240 10 / 10 ML @ 5 MG/HR 50 mls/hr IV.CONT TITRATE PRN Rx#:[id number] Oral 560 / 560 480 / 480 480 / 480 Output: Urine 650 / 650 600 / 600 400 / 400 Other: # Voids 4 2 # Incontinent Voids 1 0 Date of Last Bowel Movement 02/06/18 02/06/18 02/06/18 # Bowel Movements 1 0 Narrative: GENERAL: NAD. SKIN: Warm and dry. HEAD: Normocephalic. EYES: No scleral icterus. No injection or drainage. NECK: Supple, trachea midline. No JVD or lymphadenopathy. CARDIOVASCULAR: Regular rate and rhythm without murmurs, gallops, or rubs. RESPIRATORY: Breath sounds equal bilaterally. No accessory muscle use. GASTROINTESTINAL: Abdomen soft, non-tender, nondistended. MUSCULOSKELETAL: No cyanosis, or edema. BACK: Nontender without obvious deformity. No CVA tenderness. Results - Labs CBC & Chem 7: 02/06/18 05:55 02/06/18 05:55 Laboratory Results - last 24 hr 02/06/18 02/06/18 02/07/18 17:21 20:45 08:01 POC Glucose 250 H 225 H 117 H 02/07/18 12:31 POC Glucose 186 H Microbiology 02/05/18 00:49 Blood - Peripheral Aerobic Blood Culture - Preliminary No growth in 2 days 02/05/18 00:49 Blood - Peripheral Anaerobic Blood Culture - Preliminary gram positive cocci 02/05/18 00:54 Blood - Peripheral Aerobic Blood Culture - Preliminary Staphylococcus coag negative 02/05/18 00:54 Blood - Peripheral Anaerobic Blood Culture - Preliminary No growth in 2 days - Procedures Echo 02/06/2018 Normal left ventricular size. Mild concentric left ventricular hypertrophy. The left ventricular systolic function is normal with an estimated ejection fraction in the range of 55-60%. No regional wall motion abnormalities are present. The left atrial size is mildly dilated. The right atrial size is moderately dilated. Trace mitral valve regurgitation. There is mild tricuspid valve regurgitation. The estimated pulmonary arterial pressure is 44 mmHg. Trileaflet aortic valve. Mild calcification of the right coronary cusp. No aortic valve stenosis or regurgitation. Assessment and Plan - Plan 87-year-old female with Acute respiratory failure hypoxic Probable acute exacerbation of COPD Probable acute on chronic diastolic congestive heart failure -Appreciate pulmonology input. -Maintain supplemental O2 to keep O2 saturation above 88%. -Continue Atrovent nebulizer treatment as needed. -Continue Lasix 40 mg p.o. twice daily. -Continue prednisone 20 mg daily. -Continue azithromycin 500 mg p.o. daily. Hypertension -Continue carvedilol 6.25 mg p.o. twice daily, losartan 25 mg p.o. daily, nifedipine 60 mg p.o. daily. Full code. SCDs, Ambulation.
[2018-02-08] MEDS: Insulin NovoLOG Aspart Correctional Sugar Inj SQ SCH ×3 (08:40→18:38)
[2018-02-08] MEDS: Carvedilol 6.25 MG Tablet PO SCH (08:41)
[2018-02-08] MEDS: Magnesium Oxide 400 MG Tablet PO SCH (08:41)
[2018-02-08] MEDS: predniSONE 20 MG Tablet PO SCH (08:41)
[2018-02-08] MEDS: Furosemide 40 MG Tablet PO SCH (08:41)
[2018-02-08] MEDS: Calcium Carbonate 500 MG Tablet PO SCH (08:41)
--- NOTE | 2018-02-08 13:22 | P.PN ---
Subjective Interval history: In nad. No cough, fever or chills. Feels much better, she was cleared by Dr Noel for DC her pulm doctor and has an appointment as OP. Says she has O2 supplement at home No LE edema. Has lasix at home Granddaughter at bedside, very suportive, all questions answered to best of my ability Physical Exam Vital signs: Vital Signs 02/07/18 14:16 02/07/18 16:00 02/07/18 20:00 Temperature 97.6 F 98.1 F Pulse Rate 71 77 75 Respiratory Rate 18 21 17 Blood Pressure 118/77 124/60 Pulse Oximetry 97 97 02/07/18 21:02 02/08/18 00:00 02/08/18 04:00 Temperature 97.6 F Pulse Rate 60 70 Respiratory Rate 18 17 18 Blood Pressure 120/62 Pulse Oximetry 97 98 02/08/18 07:59 02/08/18 08:18 02/08/18 12:00 Temperature 97.8 F 97.5 F L Pulse Rate 78 74 73 Respiratory Rate 18 16 18 Blood Pressure 126/58 L 123/59 L Pulse Oximetry 94 L 96 95 02/08/18 13:19 Temperature Pulse Rate 71 Respiratory Rate 16 Blood Pressure Pulse Oximetry Intake & Output 02/07/18 02/08/18 02/08/18 18:59 06:59 18:59 Intake Total 480 / 480 480 / 480 Output Total 400 / 400 1300 / 1300 Balance 80 / 80 -820 / -820 Weight 68 kg Intake: Oral 480 / 480 480 / 480 Output: Urine 400 / 400 1300 / 1300 Other: # Voids 2 # Incontinent Voids 0 Date of Last Bowel Movement 02/06/18 # Bowel Movements 0 Narrative: GENERAL: Very pleasant 87 yo femele, well nourished, well developed patient, in NAD. SKIN: Warm and dry. HEAD: Normocephalic. EYES: No scleral icterus. No injection or drainage. NECK: Supple, trachea midline. No JVD or lymphadenopathy. CARDIOVASCULAR: Regular rate and rhythm without murmurs, gallops, or rubs. RESPIRATORY: Breath sounds equal bilaterally. No accessory muscle use. No wheezing. GASTROINTESTINAL: Abdomen soft, non-tender, nondistended. MUSCULOSKELETAL: No cyanosis, or edema. BACK: Nontender without obvious deformity. No CVA tenderness. Results - Labs CBC & Chem 7: 02/06/18 05:55 02/06/18 05:55 Laboratory Results - last 24 hr 02/07/18 02/07/18 02/08/18 17:20 21:20 08:32 POC Glucose 231 H 187 H 163 H 02/08/18 12:20 POC Glucose 162 H Microbiology 02/05/18 00:49 Blood - Peripheral Aerobic Blood Culture - Preliminary No growth in 3 days 02/05/18 00:49 Blood - Peripheral Anaerobic Blood Culture - Preliminary Staphylococcus coag negative 02/05/18 00:54 Blood - Peripheral Aerobic Blood Culture - Preliminary Staphylococcus coag negative 02/05/18 00:54 Blood - Peripheral Anaerobic Blood Culture - Preliminary No growth in 3 days - Procedures Echo 02/06/2018 Normal left ventricular size. Mild concentric left ventricular hypertrophy. The left ventricular systolic function is normal with an estimated ejection fraction in the range of 55-60%. No regional wall motion abnormalities are present. The left atrial size is mildly dilated. The right atrial size is moderately dilated. Trace mitral valve regurgitation. There is mild tricuspid valve regurgitation. The estimated pulmonary arterial pressure is 44 mmHg. Trileaflet aortic valve. Mild calcification of the right coronary cusp. No aortic valve stenosis or regurgitation. Assessment and Plan - Plan 87-year-old female with Acute respiratory failure hypoxic, resolved. Patient at baseline O2 requirement , has continuous O2 at home. Probable acute exacerbation of COPD, resolved Probable acute on chronic diastolic congestive heart failure, resolved Appreciate pulmonology input. Maintain supplemental O2 to keep O2 saturation above 88%. Continue Atrovent nebulizer treatment as needed. Continue Lasix 40 mg p.o. twice daily. Continue prednisone 20 mg daily. Continue azithromycin 500 mg p.o. daily. Hypertension-Continue carvedilol 6.25 mg p.o. twice daily, losartan 25 mg p.o. daily, nifedipine 60 mg p.o. daily. Patient improved significantly, cleared by consultants for discharge. Patient is discharged home with home health in stable condition to follow-up with PCP and consultants as outpatient.
--- NOTE | 2018-02-08 14:17 | P.DS ---
Date of admission: 02/05/18 00:58 Primary care physician: UNKNOWN Brief History from admission: 79-year-old female with a history of hypertension, hyperlipidemia, CAD, CHF with ejection fraction 2530%, diabetes mellitus, COPD who presents with a 2 day history of progressively worsening shortness of breath at rest. She also reports worsening of her chronic bilateral lower extremity peripheral edema over the past week. Denies any cough. Denies any chest pain. Denies any fevers or chills. Patient follows with rubber and plastics worker, Dr. Noel. Patient has received duo nebs, Solu-Medrol IV, and is currently on BiPAP. She says she is feeling better. DS: Diagnosis - Discharge Diagnosis (1) Accelerated hypertension Status: Acute (2) Acute exacerbation of chronic obstructive airways disease Status: Acute (3) CHF exacerbation Status: Acute (4) Community acquired pneumonia Status: Acute (5) Respiratory failure Status: Acute DS: Medications - Discharge Medications Prescriptions: ipratropium bromide 0.5 mg NEB TID NEB #30 ml nifedipine 60 mg PO DAILY #30 tab prednisone 20 mg PO DAILY #3 tab DS: Summary Hospital Course: 87-year-old female with Acute respiratory failure hypoxic, resolved. Patient at baseline O2 requirement , has continuous O2 at home. Probable acute exacerbation of COPD, resolved Probable acute on chronic diastolic congestive heart failure, resolved Appreciate pulmonology input. Maintain supplemental O2 to keep O2 saturation above 88%. Continue Atrovent nebulizer treatment as needed. Continue Lasix 40 mg p.o. twice daily. Continue prednisone 20 mg daily. Received azithromycin 500 mg p.o. daily. Hypertension-Continue carvedilol 6.25 mg p.o. twice daily, losartan 25 mg p.o. daily, nifedipine 60 mg p.o. daily. Patient improved significantly, cleared by consultants for discharge. Patient is discharged home with home health in stable condition to follow-up with PCP and consultants as outpatient. - Time Spent with Patient Total time spent providing and/or coordinating discharge services: Greater than 30 minutes - Quality: VTE Deep Vein Thrombosis/Pulmonary Embolism Present on Admission: No Exam Vital signs: Vital Signs 02/07/18 16:00 02/07/18 20:00 02/07/18 21:02 Temperature 97.6 F 98.1 F Pulse Rate 77 75 60 Respiratory Rate 21 17 18 Blood Pressure 118/77 124/60 Pulse Oximetry 97 97 97 09/28/18 00:00 02/08/18 04:00 02/08/18 07:59 Temperature 97.6 F 97.8 F Pulse Rate 70 78 Respiratory Rate 17 18 18 Blood Pressure 120/62 126/58 L Pulse Oximetry 98 94 L 02/08/18 08:18 02/08/18 12:00 02/08/18 13:19 Temperature 97.5 F L Pulse Rate 74 73 71 Respiratory Rate 16 18 16 Blood Pressure 123/59 L Pulse Oximetry 96 95 Intake & Output 02/07/18 02/08/18 02/08/18 18:59 06:59 18:59 Intake Total 480 / 480 480 / 480 Output Total 400 / 400 1300 / 1300 Balance 80 / 80 -820 / -820 Weight 68 kg Intake: Oral 480 / 480 480 / 480 Output: Urine 400 / 400 1300 / 1300 Other: # Voids 2 # Incontinent Voids 0 Date of Last Bowel Movement 02/06/18 # Bowel Movements 0 Narrative: GENERAL: Very pleasant 87 yo femele, well nourished, well developed patient, in NAD. SKIN: Warm and dry. HEAD: Normocephalic. EYES: No scleral icterus. No injection or drainage. NECK: Supple, trachea midline. No JVD or lymphadenopathy. CARDIOVASCULAR: Regular rate and rhythm without murmurs, gallops, or rubs. RESPIRATORY: Breath sounds equal bilaterally. No accessory muscle use. No wheezing. GASTROINTESTINAL: Abdomen soft, non-tender, nondistended. MUSCULOSKELETAL: No cyanosis, or edema. BACK: Nontender without obvious deformity. No CVA tenderness. Results Procedures completed during hospitalization: Echo 02/06/2018 Normal left ventricular size. Mild concentric left ventricular hypertrophy. The left ventricular systolic function is normal with an estimated ejection fraction in the range of 55-60%. No regional wall motion abnormalities are present. The left atrial size is mildly dilated. The right atrial size is moderately dilated. Trace mitral valve regurgitation. There is mild tricuspid valve regurgitation. The estimated pulmonary arterial pressure is 44 mmHg. Trileaflet aortic valve. Mild calcification of the right coronary cusp. No aortic valve stenosis or regurgitation. Labs on day of discharge: Labs from last 24 hours 02/08/18 02/08/18 02/07/18 12:20 08:32 21:20 POC Glucose 162 H 163 H 187 H 02/07/18 17:20 POC Glucose 231 H Preliminary micro results at discharge 02/05/18 00:49 Aerobic Blood Culture - Preliminary Blood - Peripheral No growth in 3 days Anaerobic Blood Culture - Preliminary Staphylococcus coag negative 02/05/18 00:54 Aerobic Blood Culture - Preliminary Blood - Peripheral Staphylococcus coag negative Anaerobic Blood Culture - Preliminary No growth in 3 days - Impressions ITS Impressions Chest X-Ray 02/04/18 22:18 CONCLUSION: Persistent bilateral pleural effusions and patchy lower lung infiltrates. Chest CT 02/04/18 22:24 CONCLUSION: 1. Bilateral pulmonary opacity most prominent at the inferior portion of the right lower lobe. Findings suggest likely pulmonary edema with superimposed right lower lobe consolidation. 2. Small pleural effusions right greater than left. 3. Moderate severity pulmonary parenchymal emphysema. Discharge Plan - Discharge Disposition Patient Disposition: /Home Health Service - Discharge Condition Condition: Stable - Discharge Order Discharge Orders: Discharge Order (Routine); Ordered 02/08/18 Ordered By: Soha Vee - Discharge Details Anticipated Discharge Date: 02/08/18 - Physicians Team Primary Care Provider: UNKNOWN, Attending Provider: Soha Vee Other Providers: Santino Bates MD ; Evelyn Rivas
--- NOTE | 2018-02-08 16:05 | P.DCO ---
- Diagnosis (1) CHF exacerbation (2) Community acquired pneumonia (3) Respiratory failure - Physical Therapy Order: Evaluate and treat - Home Health Nursing Order: Medical education, Signs/symptoms of disease process, Diabetic education , CHF education, Medication education-adverse effect, Nursing assessment with vital signs, Telehealth - Case Management Consult Yes - Certification I have seen patient Annabelle Álvarez on 02/08/18. My clinical findings support the need for the requested home health care services because: Limited mobility due to disease progression, Patient has SOB, Deconditioned with increased weakness I certify that my clinical findings support that this patient is homebound because: Post-op weakness, Impaired cognitive ability/safety, Hx COPD - exertion dyspnea/ weakness, Unsteady gait/balance (1) CHF exacerbation Qualifiers: Heart failure type: unspecified Qualified Code(s): I50.9 - Heart failure, unspecified (2) Community acquired pneumonia Qualifiers: Laterality: unspecified laterality Qualified Code(s): J18.9 - Pneumonia, unspecified organism (3) Respiratory failure Qualifiers: Chronicity: acute Respiratory failure complication: hypercapnia Qualified Code(s): J96.02 - Acute respiratory failure with hypercapnia
[2018-02-08 16:16] VITALS: BP 130/57; PULSE 76; RESP 18; TEMP 98; O2SAT 96
--- NOTE | 2018-02-09 21:59 | MD ---
cc: Fabian Noel MD DATE OF DISCHARGE: 02/08/2018 HOSPITAL COURSE: Ms. 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 She has represented several times this year in CHF, but chest x-rays have also suggested that she may have interstitial lung disease. On this admission, she was begun on aerosolized bronchodilators, Atrovent along with oxygen, corticosteroids and antibiotics for possible pneumonia. She has done well and is currently on oral prednisone at 20 mg, 3 liters of oxygen and Atrovent by nebulization 3 times a day with stable lungs. A CT was done on 02/04/2018, which revealed bilateral pulmonary opacities, particularly in the lower lobe, more prominent on the right, suspicious for pulmonary edema, but again I think she does have some underlying fibrosis as well. She also has emphysema that is seen on the CT. Influenza A and B were negative on presentation and white counts have been normal. She had an ABG on initial presentation 02/05/2018 on BiPAP with a pO2 of 85, pCO2 of 7.32, pCO2 of 62. She has done well during this admission. She is up. She is ambulatory. She would like to go home and I think her pulmonary status is stable. PHYSICAL EXAMINATION: Today, afebrile. Blood pressure 120/60, pulse 70, respirations 16-18, O2 on 2 liters 95%. Neck veins are flat. Basilar rales, dry. Soft systolic murmur. No audible S3. No significant edema. I suggested that she use her oxygen continuously at home at this point, particularly with underlying heart disease and also Atrovent by nebulization twice a day and I have written a prescription for that. I do not think she needs to continue prednisone at this point and I will see her back in the office in 2 weeks. She knows she can call if problems arise prior to followup. MD ALEJANDRA Luo/michael , 01:25 PM , 01:33 PM
== END 2018-02-08 18:00 | disposition home health service (06) ==
LOC: NEPC 22:12 → NEDA 02-05 00:58 → NEDH 02-05 04:50 → N03 02-05 08:04 → N07 02-07 17:07
PROVIDERS: ADMIT Hospitalist; ATTEND Hospitalist